=== PATIENT | male | born 1945 | race Caucasian/White ===

== ENCOUNTER 2018-10-17 13:29 | Outpatient (CLI) | payer MEDICARE ==
--- NOTE | 2018-10-17 17:51 | HP ---
HISTORY OF PRESENT ILLNESS: Mr. Rafael Kilgore is a very pleasant 73-year-old gentleman, who [facility] for evaluation of a wound of the left groin. The patient was referred to the [facility]ound [facility] by Dr. Philip Tarango. The patient is accompanied by his today. According to records accompanying the patient today, the etiology of the left groin wound is unclear. PAST MEDICAL HISTORY: 1. Diabetes mellitus. 2. Hypertension. 3. Chronic obstructive pulmonary disease. 4. Chronic diastolic heart failure. 5. Benign prostatic hypertrophy. 6. Obstructive sleep apnea. 7. Atrial flutter/atrial fibrillation status post ablation. PAST SURGICAL HISTORY: 1. Back surgery x2. 2. Rhinoplasty x2. 3. Excision of basal cell carcinoma from the back. 4. Tonsillectomy and adenoidectomy. 5. Appendectomy. 6. Excision of ganglion cyst from right hand. MEDICATIONS: 1. Coreg. 2. Digoxin. 3. Eliquis. 4. Atorvastatin. 5. Metformin. 6. Glipizide. 7. Diltiazem. 8. Lisinopril. 9. Aspirin. 10. Methocarbamol. 11. Gabapentin. 12. MiraLAX. 13. Vitamin D. 14. Vitamin B. 15. Vitamin E. ALLERGIES: SULFA, LATEX. SOCIAL HISTORY: Significant for tobacco use of 1 to 1-1/2 packs of cigarettes per day for 30 years. The patient states that he stopped smoking in 2000. The patient admits to the consumption of 1 drink per day for the past 50 years. FAMILY HISTORY: Family history is significant for diabetes mellitus. The patient states that his maternal uncle was diagnosed with diabetes mellitus. Family history is also significant for coronary artery disease. The patient states that his mother was diagnosed with coronary artery disease. PHYSICAL EXAMINATION: VITAL SIGNS: Temperature 98.2, pulse 91, respirations 20, blood pressure 134/74, Accu-Chek 292. GENERAL: A 73-year-old gentleman, lying on table in examination room, in no acute distress. HEENT: Normocephalic and atraumatic. NECK: No nuchal rigidity. CHEST: Clear to auscultation. CV: Regular rate and rhythm. ABDOMEN: Soft. EXTREMITIES: The wound of the left groin has healed completely. NEURO: Grossly nonfocal. ASSESSMENT AND PLAN: 1. Left groin wound. As stated above, the wound has healed completely. The patient has been reassured that no open wound of the left groin is present. The patient has been instructed to keep this region clean and dry. The patient has also been given samples of InterDry. Mr. Kilgore will be discharged from clinic today with followup on a p.r.n. basis. The patient and his understand and are in agreement with the preceding treatment plan. 2. Diabetes mellitus. The patient's Accu-Chek in clinic today is 292. 3. Hypertension. 4. Chronic obstructive pulmonary disease. 5. Chronic diastolic heart failure. 6. Benign prostatic hypertrophy. 7. Obstructive sleep apnea. 8. Atrial flutter/atrial fibrillation status post ablation. Job ID: [id number]
== END 2018-10-17 13:30 | disposition home or self-care (01) ==
LOC: WCC 13:29
PROVIDERS: ATTEND Family Medicine
DX: I11.0 Hypertensive heart disease with heart failure (principal); I50.32 Chronic diastolic (congestive) heart failure; E11.9 Type 2 diabetes mellitus without complications; J44.9 Chronic obstructive pulmonary disease, unspecified; G47.33 Obstructive sleep apnea (adult) (pediatric); N40.0 Benign prostatic hyperplasia without lower urinary tract symptoms
CPT/HCPCS: 36416; 99203; G0463

== ENCOUNTER 2020-03-14 20:40 | Inpatient (IN) | payer MEDICARE, OTHER ==
[~2020-03-14 20:40] MED LIST: Iopamidol-370 76% 500 ML 1 ML ONE
[2020-03-14] MEDS ORDERED: Nitroglycerin 50 MG/250 ML BOT 250 ML ONE (20:50)
--- NOTE | 2020-03-14 21:01 | RAD ---
Exam: Chest one view HISTORY:Intubated patient and seen. Dyspnea x3 days. Comparison: 03/31/2016 FINDINGS: Cardiac silhouette:Cardiomegaly. Aorta: Unremarkable Pulmonary vessels: Normal Costophrenic angles: Clear LUNGS: Multifocal interstitial opacities with more focal alveolar infiltrate in the right lower lobe and right upper lobe. Pneumothorax: None Osseous abnormalities: None Lines and tubes: Endotracheal tube just down the level of clavicles. IMPRESSION: 1. Endotracheal tube just beyond the level of clavicles 2. Multifocal interstitial and alveolar opacities. Correlate for congestive heart failure versus COVI D pneumonia.
[2020-03-14] MEDS ORDERED: Dexamethasone 10 MG/ML VIAL ONE (21:07)
[2020-03-14] MEDS ORDERED: Azithromycin 500 MG VIAL ONE (21:07)
[2020-03-14] MEDS ORDERED: cefTRIAXone\\ROCEPHIN 1 GM VIAL ONE (21:07)
--- NOTE | 2020-03-14 21:33 | RAD ---
Exam: Chest one view HISTORY:Interval placement of central line. Comparison: 03/14/2020 8:47 PM FINDINGS: Lines and tubes: Interval placement of a nasogastric tube extending beyond the diaphragm. Distal tip is not seen. Interval placement of a left-sided vascular catheter with tip terminating over the expected region of the superior vena cava. Cardiac silhouette:Cardiomegaly Aorta: Unremarkable Pulmonary vessels: Normal Costophrenic angles: Clear LUNGS: Stable multifocal interstitial and alveolar opacities. Pneumothorax: None Osseous abnormalities: None IMPRESSION: 1. Interval placement of a nasogastric tube and left-sided vascular catheter. No pneumothorax. 2. Otherwise, no significant interval change.
[2020-03-14 21:38] LABS: Analyzer IN Cardio ER; Base Excess (BEa) -1.1 mEq/L (-2.0 to +3.0); Calcium, Ionized (arterial) 1.16 mmol/L (1.12-1.30); Hemoglobin (Hb) 14.6 g/dL (14.0-18.0); O2 Tension (PaO2), arterial 74.7 mmHg (> 70.0); Potassium - ABG Lab 5.17 mmol/L (3.70-5.30)
[2020-03-14 21:38] LABS: #Eosinphils 0.2 thou/uL (0.0-0.7); #Lymphocytes 0.6 thou/uL (1.20-3.40); #Monocytes 0.9 thou/uL (0.11-0.59); #Neutrophils 15.6 thou/uL (1.40-6.50); %Eosinophils 0.9 % (0.0-10.0); %Lymphocytes 3.4 % (21.0-51.0); %Monocytes 4.9 % (0.0-10.0); %Neutrophils 90.8 % (42.0-75.0); Hemoglobin 13.7 g/dL (14.0-18.0); Mean Corpuscular HGB CONC 30.4 g/dL (32.0-36.0); Mean Platelet Volume 7.5 fL (7.4-10.4); Platelet Count 261 thou/uL (130-400); RBC Distribution Width 14.7 % (11.5-14.5); Red Blood Cell (RBC) Count 4.89 mill/uL (4.70-6.10); White Blood Cell (WBC) Count 17.2 thou/uL (4.8-10.8)
[2020-03-14 21:41] LABS: CO2 Tension 67.4 mmHg (35.0-45.0); Puncture Site LBA; pH, Arterial 7.24 (7.35-7.45)
[2020-03-14 21:42] LABS: INR-International Normal Ratio 1.1; PTT 27.3 sec (22.9-36.1); Prothrombin Time 14.9 sec (12.0-14.7)
[2020-03-14 21:58] LABS: ALT (SGPT) 42 U/L (8-55); AST (SGOT) 49 U/L (5-34); Albumin 3.8 g/dL (3.4-4.8); Alkaline Phosphatase 146 U/L (40-110); Anion Gap 14 mmol/L (10-20); BUN (Urea Nitrogen) 21 mg/dL (8.4-25.7); Bilirubin, Total 1.1 mg/dL (0.2-1.2); Calc. Creatinine Clearance 0 mL/min (70-130); Calcium 8.8 mg/dL (7.8-10.44); Carbon Dioxide 26 mmol/L (23-31); Chloride 103 mmol/L (98-107); Globulin 3.3 g/dL (2.4-3.5); Glucose 341 mg/dL (83-110); Potassium 5.4 mmol/L (3.5-5.1); Protein, Total 7.1 g/dL (5.8-8.1); Sodium 138 mmol/L (136-145)
[2020-03-14 22:15] LABS: SARS-CoV-2 NAA Rapid Test Not Detected (NotDetected)
[2020-03-14 22:19] LABS: CKMB 1.9 ng/mL (0-6.6)
--- NOTE | 2020-03-14 22:21 | PDOC.FPRHP ---
- History of Present Illness Chief Complaint: SOB History of Present Illness: Pt is a 74yo male w/ hx of COPD, DM, HTN, a fib, MANDA who presents to ED after being intubated in field due to hypoxic respiratory failure. The rest of the history was obtained from his . For the past 4 days pt has become increasingly SOB. He was refusing to seek medical attention. Today he was having difficulty breathing to the point he was unable to talk in sentences, he was confused, not recognizing his and he was not able to get off the toilet. At this point his called EMS. Per EMS when they arrived he was cyanotic and end tidal CO2 was over 100. Pt was then paralyzed, sedated and intubated. They also heard decreased breath sounds on the right and performed needle thoracostomy bilaterally. His is unsure if he had been taking his medications as prescribed. He is a former smoker. He wears his cpap every night. Does not have home O2 requirement. Admits to congestion but denies fever, sick contacts, N/V/D. ED Course: fentanyl, azithromycin, rocephin, decadron, nitro gtt, 30ml/kg bolus IVF - Allergies/Adverse Reactions Allergies Allergy/AdvReac Type Severity Reaction Status Date / Time No Allergy Information Allergy Verified 03/15/20 03:34 Available - Home Medications Medication Instructions Recorded Confirmed Type Budesonide-Formoterol [Symbicort 1 puff INH BID 03/22/16 03/15/20 History 80-4.5] metFORMIN [Glucophage] 500 mg PO BID-WM 03/22/16 03/22/16 History Finasteride [Proscar] 5 mg PO DAILY 03/23/16 03/15/20 History Apixaban [Eliquis] 5 mg PO BID #60 tab 04/02/16 03/15/20 Rx Carvedilol [Coreg] 12.5 mg PO BID- #60 tab 04/02/16 03/15/20 Rx Digoxin [Lanoxin] 0.25 mg PO QAM #30 tab 04/02/16 03/15/20 Rx Diltiazem HCl [Cardizem CD] 240 mg PO DAILY #30 cap 04/02/16 03/15/20 Rx Docusate [Colace] 100 mg PO BID #60 cap 04/02/16 03/15/20 Rx Furosemide [Lasix] 40 mg PO 0900,1400 #60 tab 04/02/16 03/15/20 Rx Insulin Detemir 100 UNITS/ML 15 units SC BID #60 vial 04/02/16 03/15/20 Rx [Levemir] Ipratropium/Albuterol Sulfate 3 ml NEB [id number] #30 neb 04/02/16 03/15/20 Rx [DuoNeb] Pantoprazole [Protonix] 40 mg PO DAILY #30 tab 04/02/16 Rx Polyethylene Glycol 3350 [Miralax] 17 gm PO DAILY #30 pk 04/02/16 03/15/20 Rx Tamsulosin HCl [Flomax] 0.4 mg PO DAILY #30 cap 04/02/16 03/15/20 Rx predniSONE 20 mg PO QAM-WM #4 tab 04/02/16 Rx - History PMHx: DM, HTN, COPD, CHF, BPH, MANDA, a fib PSHx: back surgery, rhinoplasty, tonsillectomy, appendectomy, foot x2 FHx: non-contributory Social: former smoker, drinks alcohol rarely, lives with . - Review of Systems ROS unobtainable: due to endotracheal tube - Vital signs BP: 123/67, HR 75, RR 24, Vent: SIMV, VC, FiO2 100%, PEEP 5 - Physical Exam -Constitutional: Sedated, Intubated HEENT: normocephalic and atraumatic, grossly normal vision, grossly normal hearing Neck: trachea midline -Heart: distant heart sounds, b/l LE edema Lungs: no wheezing -Lungs: difficult to auscultate due to body habitus and being on vent but able to hear breath sounds b/l Abdomen: soft Musculoskeletal: normal structure, normal tone -Neurological: GCS 11T, able to move all 4 limbs, answered some yes/no questions Skin: no rash/lesions, no jaundice Heme/Lymphatic: no unusual bruising or bleeding FMR H&P: Results - Labs Result Diagrams: 03/15/20 03:49 03/15/20 03:49 Lab results: WBC 17.2 thou/uL (4.8-10.8) H 03/14/20 21:19 Hgb 13.7 g/dL (14.0-18.0) L 01/07/21 21:19 Hct 45.0 % (42.0-52.0) 03/14/20 21:19 MCV 92.0 fL (78.0-98.0) 03/14/20 21:19 Plt Count 261 thou/uL (130-400) 03/14/20 21:19 Neutrophils % 90.8 % (42.0-75.0) H 03/14/20 21:19 ABG pH 7.24 (7.35-7.45) L* 03/14/20 21:33 ABG pCO2 67.4 mmHg (35.0-45.0) H* 03/14/20 21:33 ABG pO2 74.7 mmHg (> 70.0) H 03/14/20 21:33 Sodium 138 mmol/L (136-145) 03/14/20 21:19 Potassium 5.4 mmol/L (3.5-5.1) H 03/14/20 21:19 Chloride 103 mmol/L (98-107) 03/14/20 21:19 Carbon Dioxide 26 mmol/L (23-31) 03/14/20 21:19 BUN 21 mg/dL (8.4-25.7) 03/14/20 21:19 Creatinine 1.03 mg/dL (0.7-1.3) 03/14/20 21:19 Glucose 341 mg/dL (83-110) H 03/14/20 21:19 Lactic Acid 1.5 mmol/L (0.5-2.2) 03/14/20 21:19 Calcium 8.8 mg/dL (7.8-10.44) 03/14/20 21:19 Total Bilirubin 1.1 mg/dL (0.2-1.2) 03/14/20 21:19 AST 49 U/L (5-34) H 03/14/20 21:19 ALT 42 U/L (8-55) 03/14/20 21:19 Alkaline Phosphatase 146 U/L (40-110) H 03/14/20 21:19 CK-MB (CK-2) 1.9 ng/mL (0-6.6) 03/14/20 21:19 B-Natriuretic Peptide 94.9 pg/mL (0-100) 03/14/20 21:19 Serum Total Protein 7.1 g/dL (5.8-8.1) 03/14/20 21:19 Albumin 3.8 g/dL (3.4-4.8) 03/14/20 21:19 FMR H&P: A/P - Plan #Acute hypercapenic respiratory failure requiring mechanical ventilation -EMS reported CO2>100, ABG CO2 67 -intubated in field -etiology likely COPD exac 2/2 PNA -BNP 94, procal 0.85 -current vent settings SIMV, Rate 24, FiO2 100%, PEEP 5 -admit to CCU, consult pulm in am -s/p decadron and duonebs in ED, will continue duonebs #Sepsis 2/2 PNA -WBC 17, HR 92 -CTA: b/l pleural effusion, RUL PNA -s/p 30ml/kg bolus in ED -Abx: azithromycin and rocephin given in ED. Will change to cefepime and vanc to cover for MRSA and pseudomonas based on pt's PMH -COVID, flu negative -pending BCx #Hyperkalemia -K 5.4, no T wave changes -will give one dose IV lasix and recheck in am #Indeterminate troponin -trop 0.052, will trend -Likely due to demand #Afib -Hx of afib s/p ablation -ekg: a fib with normal rate -continue home eliquis #DM2 -continue home meds -pending A1c -mod SSI #BPH -continue home meds #Chronic diastolic heart failure -hx obtained from prior admissions -continue home meds #MANDA -uses CPAP at home -once off vent, consider adding CPAP at night Code: Full, 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 LOS>48hrs FMR H&P: Upper Level - Plan Date/Time: 03/14/202220 I, [Constanza Mane], have evaluated this patient and agree with findings/plan as outlined by process engineering intern resident. Pertinent changes/additions are listed here. 74 yo M with hx of MANDA on CPAP, COPD, diastolic HF brought in by EMS after being intubated for respiratory distress. Per patient patient has history of diastolic HF, COPD. He had been feeling more SOB the past few days and today was very confused. EMS was called and he was intubated on the field and had bilateral needle thoracostomies placed after auscultation of decreased right breath sounds. CTA was negative for PE but pertinent for bilateral pleural effusions and infiltrates. Flu & COVID negative. He was given dexamethasone, 500mg azithromycin, 1g rocephin and 30cc/kg bolus. He was originally very hypertensive on arrival and so was started on an nitro drip. Pressures normalized and is currently off of it. Records show he was here in 2017 in which he was intubated for AHRF 2/2 CHF exacerbation and AFib with RVR. PE: GCS 11T ([id number]) Resp: Bilateral breath sounds Abd: Mild distension, no fluid wave, non tender Extrem: 1+ edema in BLE with compression stockings CTA: Neg for PE, b/l effusions & infiltrates. RUL consolidation. #Acute hypercapenic respiratory failure requiring mechanical ventilation -Multifactorial, suspect 2/2 MANDA/OHS, PNA, COPD exacerbation? -Flu & COVID neg, will obtain legionella & s pneumo urinary antigen. Rocephin & azithromycin given in ER. -On SIMV: f24, FiO 100%, PEEP 5.0 -BNP 94, Procal 0.85, CO2 on ABG 67.4 -Will give one time dose of IV lasix, to also help with hyperK. BRIAN vuongbs. Reassess in AM. -Ventilation sedation protocol -Consult pulm in AM, recs appreciated #Respiratory acidosis -pH 7.24, CO2 67.4, now on mechanical ventilation with rate frequency of 24 -COPD/MANDA component? -RT on board -Can repeat ABG in AM #Sepsis 2/2 bilateral PNA -CT with bilateral pleural effusion/consolidations -WBC 17, tachycardic -Covid & flu negative, Procal 0.85 -s/p 30cc/kg bolus -s/p rocephin & azithromycin- broaden to vanc & cefepime for MRSA & pseudomonal coverage -Bcx collected #Hyperkalemia -5.4, no T wave changes -One time dose IV lasix, recheck with AM labs #Indeterminate troponin -0.052, no EKG changes -Likely stress ischemia- trend, cardiac monitoring #Afib,rate controlled -Hx of afib, afib on EKG, rate controlled =s/p th lovenox, after talking with who confirmed madeline will restart -restart home meds #IDDM2 -Check A1c -Sliding scale #COPD -See above #Hx of BPH -MD aware #Hx of aflutter/afib s/p ablation -See above #Chronic diastolic heart failure -MD aware Admit: ICU/Inpt Lines: Left IJ, two peripheral 18G, OGT, ETT dvt ppx: th lovenox gi ppx: pepcid abx: vanc & cefepime Addendum - Attending - Attending Attestation Date/Time: 03/15/20 0701 I personally evaluated the patient and discussed the management with Dr. Claros I agree with the History, Examination, Assessment and Plan documented above with any addition or exceptions noted below - 74yo male w/ hx of COPD, DM, HTN, a fib, MANDA who presents to ED after being intubated in field due to severe resp distress The rest of the history was obtained from his . For the past 4 days pt has become increasingly SOB. He was refusing to seek medical attention. Today he was having difficulty breathing to the point he was unable to talk in sentences, he was confused, not recognizing his and he was not able to get off the toilet. At this point his called EMS. His is unsure if he had been taking his medications as prescribed. He is a former smoker. He wears his cpap every night. Does not have home O2 requirement. Admits to congestion but denies fever, sick contacts, N/V/D. Per EMS when they arrived he was cyanotic and end tidal CO2 was over 100. Pt was then paralyzed, sedated and intubated. They also heard decreased breath sounds on the right and performed needle thoracostomy bilaterally. BP 96/55 P74 RR24 99% Exam repeated by me and agree with resident's findings. Labs: WBC= 17.2, H/H=13.7/45, Uki=441, Xq=440, K=5.4, BUN/Cr=21/1.03, Notg=488, AST/ALT=49/42, BNP=94.9, Trop=0.052, Flu/COVID- ne gative, CTA- no PE; RUL pneumonia, b/l pleural effusions with adjacent atelectasis versus pneumonia A/P: 1) Acute hypoxic, hypercapneic resp failure- Admit to ICU; Continue vent support. Consult pulmonary. 2) CAP - continue abx, nebs, vent support. 3) DM- accuchecks q6 horus with SSI, 4) Afib- rate controlled; continue to monitor.
--- NOTE | 2020-03-14 23:03 | CT ---
Exam: CT angiogram of the chest HISTORY: Altered mentation. Hypercapnia. Cyanosis. Hypoxia. Evaluate for pulmonary embolism. COMPARISON: None TECHNIQUE: CT angiogram of the chest is performed in the axial plane. Three-dimensional reformatted i mages are submitted for interpretation FINDINGS: Mediastinum: Enlarged right paratracheal lymph node measuring 2.2 x 1.4 cm. Upper normal prevascular lymph node measuring 1.3 x 0.7 cm. HEART: Normal size. No significant pericardial fluid. There is coronary disease. Aorta: No aneurysm or dissection Upper solid abdominal viscera: No abnormality enhancement. Trachea and central bronchi: Endotracheal tube is identified. Pleural spaces: Small to moderate right and small left pleural effusion. Lung parenchyma: Right upper lobe consolidation likely due to pneumonia. Consolidation in both lower lobes adjacent to the pleural fluid. 1 cm groundglass opacity in the left upper lobe. Pneumothorax: None Osseous structures: No lytic or blastic lesions Pulmonary arteries: Adequate contrast opacification pulmonary arterial system to the level of segment al arteries. No filling defect to suggest pulmonary embolism IMPRESSION: 1. No evidence of pulmonary artery embolism to the level of the segmental arteries 2. Right upper lobe pneumonia. 3. Bilateral pleural effusion with adjacent consolidation likely representing atelectasis. Pneumonia and/or aspiration in the lung bases cannot be excluded.
[2020-03-14] MEDS ORDERED: Dextrose 5% in Water 1,000 ML IV PRN (23:42)
[2020-03-14] MEDS ORDERED: Ondansetron PF 4 MG/2 ML Vial IVP PRN (23:42)
[2020-03-14] MEDS ORDERED: Dextrose 50% Abboject 50 ML SYRINGE SLOW IVP PRN (23:42)
[2020-03-14] MEDS ORDERED: Ondansetron ODT 4 MG TAB PO PRN (23:42)
[2020-03-15] MEDS ORDERED: Ventilator Sedation Protocol 1 EACH FS SCH (00:15)
[2020-03-15] MEDS ORDERED: DISCONTINUE PREVIOUS NARCOTIC PAIN MEDICATIONS AND BENZODIAZEPINES FS SCH (00:15)
[2020-03-15] MEDS ORDERED: Fentanyl BOLUS 250 ML IVPB PRN (00:15)
[2020-03-15] MEDS ORDERED: Morphine 2 MG/ML VIAL SLOW IVP PRN (00:15)
[2020-03-15] MEDS ORDERED: Furosemide 40 MG/4 ML VIAL SLOW IVP SCH (01:00)
[2020-03-15] MEDS ORDERED: Vancomycin 1 GM in Premix Bag 1 BAG IVPB SCH ×2 (01:00→09:00)
[2020-03-15] MEDS ORDERED: Propofol 1,000 MG/100 ML VIAL IV ONE ×3 (01:11→12:59)
[2020-03-15] MEDS: Propofol BOLUS 1,000 MG/100 ML VIAL IV PRN ×2 (01:20→03:00)
[2020-03-15] MEDS: fentaNYL Citrate/PF 2,000 MCG in Sodium Chloride 0.9% 60 ML IV SCH (01:20)
[2020-03-15] MEDS: Propofol 1,000 MG/100 ML VIAL IV PRN ×2 (01:20→20:20)
[2020-03-15 01:35] LABS: CKMB 1.5 ng/mL (0-6.6)
[2020-03-15] MEDS ORDERED: Furosemide 40 MG/4 ML VIAL ONE ×2 (01:37→09:48)
[2020-03-15] MEDS ORDERED: Enoxaparin Sodium 80 MG/0.8 ML SYRINGE SC SCH (02:00)
[2020-03-15 02:03] LABS: Bacteria/HPF None Seen HPF (None Seen); Bilirubin Negative (Negative); Blood, Urine Negative (Negative); Clarity Clear (Clear); Glucose, Urine (Dipstick) >=1000 mg/dL (Negative); Ketone, Urine Negative (Negative); Leukocyte Negative Leu/uL (Negative); Nitrite Negative (Negative); Protein, Urine (Dipstick) 300 mg/dL (Neg-Trace); Specific Gravity, Urine 1.048 (1.002-1.036); Urobilinogen Normal mg/dL (Less than 2); pH, Urine 6.5 (5.0-9.0)
[2020-03-15 02:09] LABS: RBC/HPF 0-3 HPF (0-3)
[2020-03-15 02:15] LABS: Legionella Urinary Ag Negative (Negative); Strep pneumo Urine Ag NEGATIVE (NEGATIVE)
[2020-03-15] MEDS ORDERED: Enoxaparin Sodium 60 MG/0.6 ML SYRINGE ONE (02:42)
[2020-03-15] MEDS ORDERED: Enoxaparin Sodium 100 MG/ML SYRINGE ONE (02:42)
[2020-03-15] MEDS ORDERED: INSULIN REGULAR IN 0.9 % NACL 100 UNIT/100 ML BAG ONE (02:42)
[2020-03-15] MEDS ORDERED: Enoxaparin Sodium 80 MG/0.8 ML SYRINGE ONE (02:43)
[2020-03-15] MEDS: HumaLOG 300 UNITS/3 ML VIAL SC PRN ×4 (02:51→16:19)
[2020-03-15 04:18] LABS: #Lymphocytes 0.5 thou/uL (1.20-3.40); #Monocytes 0.2 thou/uL (0.11-0.59); #Neutrophils 9.1 thou/uL (1.40-6.50); %Eosinophils 0.3 % (0.0-10.0); %Lymphocytes 5.2 % (21.0-51.0); %Monocytes 2.2 % (0.0-10.0); %Neutrophils 92.3 % (42.0-75.0); Hemoglobin 12.2 g/dL (14.0-18.0); Mean Corpuscular HGB CONC 31.7 g/dL (32.0-36.0); Mean Corpuscular Hemoglobin 28.7 pg (27.0-31.0); Mean Corpuscular Volume 90.3 fL (78.0-98.0); Mean Platelet Volume 7.7 fL (7.4-10.4); Platelet Count 216 thou/uL (130-400); RBC Distribution Width 14.8 % (11.5-14.5); Red Blood Cell (RBC) Count 4.26 mill/uL (4.70-6.10); White Blood Cell (WBC) Count 9.9 thou/uL (4.8-10.8)
[2020-03-15 04:48] LABS: ALT (SGPT) 33 U/L (8-55); AST (SGOT) 24 U/L (5-34); Albumin 3.5 g/dL (3.4-4.8); Alkaline Phosphatase 118 U/L (40-110); Anion Gap 12 mmol/L (10-20); BUN (Urea Nitrogen) 23 mg/dL (8.4-25.7); Bilirubin, Total 0.9 mg/dL (0.2-1.2); Calc. Creatinine Clearance 139 mL/min (70-130); Calcium 8.4 mg/dL (7.8-10.44); Carbon Dioxide 27 mmol/L (23-31); Chloride 105 mmol/L (98-107); Globulin 2.8 g/dL (2.4-3.5); Glucose 338 mg/dL (83-110); Potassium 4.5 mmol/L (3.5-5.1); Protein, Total 6.3 g/dL (5.8-8.1); Sodium 139 mmol/L (136-145)
[2020-03-15 05:01] LABS: CKMB 1.5 ng/mL (0-6.6)
--- NOTE | 2020-03-15 06:19 | PDOC.FM ---
- Subjective Subjective: Intubated and lightly sedated. Is capable of following commands per nurse. In on distress. has been updated. He had a similar experience in 2017. - Objective Vital Signs & Weight: Vital Signs (12 hours) Temp Pulse Resp BP Pulse Ox 03/15/20 03:15 98.2 F 57 L 24 H 116/55 L 100 03/15/20 03:01 58 L 03/15/20 02:57 70 24 H 100 03/15/20 01:31 98.6 F 65 24 H 110/68 98 03/14/20 23:43 100 Weight Weight 148 kg Result Diagrams: 03/15/20 03:49 03/15/20 03:49 Phys Exam - Physical Examination Constitutional: NAD HEENT: sclera anicteric Neck: no JVD, full ROM Respiratory: no wheezing, no rales, no rhonchi Cardiovascular: RRR, no significant murmur Gastrointestinal: soft, positive bowel sounds Musculoskeletal: no edema, pulses present Skin: no rash, normal turgor Dx/Plan - Plan Plan: #Acute hypercapenic respiratory failure requiring mechanical ventilation 2/2 COPD exacerbation, CAP - remain intubated and sedated #COPD - initiate methylprednisilone - cefepime, vanc - inhalers scheduled #CAP Sepsis - resolved -CTA: b/l pleural effusion, RUL PNA -cont cefepime, vanc -COVID, flu negative -pending BCx #Hyperkalemia - resolved -K 5.4, no T wave changes -will give one dose IV lasix and recheck in am #Indeterminate troponin -trop 0.052, will trend -Likely due to demand #Afib -Hx of afib s/p ablation -ekg: a fib with normal rate -continue home eliquis #DM2 -continue home meds -pending A1c -mod SSI #BPH -continue home meds #Chronic diastolic heart failure -hx obtained from prior admissions -continue home meds #MANDA -uses CPAP at home -once off vent, consider adding CPAP at night Code: Full, per PCP: UNDER TRIMMER IVF: SL DVT Ppx: eliquis Lines: Left IJ Dispo: Admit to CCU, intubated, continue to monitor resp status. LOS>48hrs Addendum - Attending - Attending Attestation Date/Time: 03/15/20 1048 I personally evaluated the patient and discussed the management with Dr. Villalba. I agree with the History, Examination, Assessment and Plan documented above with any addition or exceptions noted below. Patient here with acute hypoxic hypercapnic resp failure 2/2 suspected pneumonia. Continue antibiotics, intubation status. Pulm has been consulted. WBC normal but with neutrophilia. Wean vent as tolerated.
[2020-03-15] MEDS ORDERED: Non-Formulary Item 1 EACH (Insulin Detemir 100 Units/Ml [Levemir] 100 UNITS/ML Vial) SC SCH (09:00)
[2020-03-15] MEDS ORDERED: Enoxaparin Sodium 40 MG/0.4 ML SYRINGE SC SCH ×2 (09:00)
[2020-03-15] MEDS ORDERED: Lactated Ringer's 1,000 ML IV SCH (09:30)
[2020-03-15] MEDS ORDERED: Digoxin 0.25 MG TAB ONE (09:48)
[2020-03-15] MEDS ORDERED: Famotidine/PF 20 mg/2ml Vial ONE (09:48)
[2020-03-15] MEDS: Cefepime 2 GM in Sodium Chloride 0.9% 100 ML IVPB SCH ×2 (09:50→21:12)
[2020-03-15] MEDS: Digoxin 0.25 MG TAB PO SCH (09:50)
[2020-03-15] MEDS: Carvedilol 6.25 MG TAB PO SCH ×2 (09:50→16:20)
[2020-03-15] MEDS: Famotidine/PF 20 mg/2ml Vial SLOW IVP SCH ×2 (09:51→21:13)
[2020-03-15] MEDS: Finasteride 5 MG TAB PO SCH (09:52)
[2020-03-15] MEDS: Furosemide 40 MG TAB PO SCH ×2 (09:52→14:39)
[2020-03-15] MEDS: Insulin Glargine 15 UNITS in Pre-Filled Syringe 1 EACH SC SCH ×2 (09:52→21:14)
[2020-03-15] MEDS: Polyethylene Glycol 3350 17 GM Packet PO SCH (12:28)
[2020-03-15] MEDS: Docusate 100 MG CAP PO SCH ×2 (12:28→21:14)
[2020-03-15] MEDS ORDERED: Lorazepam 2 MG/ML VIAL ONE (12:29)
[2020-03-15] MEDS: Lorazepam 2 MG/ML VIAL SLOW IVP PRN (12:30)
[2020-03-15] MEDS ORDERED: FLU VACC QS2020-21(65YR UP)/PF 240 MCG/0.7 ML SYRINGE IM ONE (13:15)
[2020-03-15] MEDS ORDERED: Vancomycin HCl 1.75 GM in Sodium Chloride 0.9% 500 ML IVPB SCH (14:00)
[2020-03-15] MEDS: Mometasone 100 MCG/Formoterol 5 MCG 120 PUFF INHALER INH SCH ×2 (14:32→18:18)
--- NOTE | 2020-03-15 17:55 | CON ---
DATE OF CONSULTATION: 03/15/2020 HISTORY OF PRESENT ILLNESS: Rafael Kilgore is a 74-year-old male who is intubated in the emergency department. Apparently, he has a history of multiple medical problems. He was intubated outside of the hospital. There is no family available. PAST MEDICAL HISTORY: Remarkable for: 1. Sleep apnea. 2. Atrial fibrillation. 3. Hypertension. 4. Diabetes. 5. Reported history of COPD. He is in the hospital. It looks like reviewing old records back in 2017, seen by my associate during that hospitalization, it looks like he was hospitalized from 03/22 through 04/03. He was discharged home. He says he had an episode of diastolic dysfunction as well as respiratory failure associated with his sleep apnea. 6. He has a history of lipid disorder. 7. He has discharge diagnosis of malnutrition, I am not really sure how he could be malnourished when he weighed almost 400 pounds in 2017. FAMILY HISTORY: Negative for lung disease in early age. REVIEW OF SYSTEMS: Not obtainable. PHYSICAL EXAMINATION: VITAL SIGNS: Blood pressure 133/62, heart rate is in the 50s, respiratory rate is 20. GENERAL: He is sedated. He is quite large. HEENT: Pupils reactive. Sclerae are anicteric. He is orally intubated. NECK: Without lymphadenopathy. LUNGS: Distant and clear. HEART: Regular rhythm. S1 and S2 are distant. ABDOMEN: Massive. No guarding. EXTREMITIES: With chronic stasis changes. One of his lower extremities has a compression wrap on it. LABORATORY DATA: White count 9.9, hemoglobin 12.2, and platelets 216. Electrolytes are unremarkable. Creatinine is normal. Glucose is in the 300s. Urinalysis is remarkable for 300 mg/dL of protein. IMPRESSION: 1. Respiratory failure with a chest radiograph is suggestive of pulmonary edema. 2. History of obesity hypoventilation syndrome/sleep apnea. 3. History of diastolic heart failure. 4. Life-threatening obesity. 5. Borderline anemia. 6. Proteinuria, likely associated with his diabetes. 7. Status post CT angiogram showing bilateral patchy alveolar infiltrates. He had nothing suggestive of a pulmonary embolism on his CT. PLAN: Mechanical ventilation. Antibiotics, sedation, nutritional support, although will be careful not overfeeding for fear of CO2 production issues and difficulty weaning. He may actually require tracheostomy to wean given his size. CRITICAL CARE TIME: 40 minutes. Job ID: [id number] MTD[place]
[2020-03-16] MEDS: Apixaban 5 MG TAB PO SCH ×3 (00:47→20:55)
[2020-03-16] MEDS: Propofol 1,000 MG/100 ML VIAL IV PRN ×7 (00:50→22:38)
[2020-03-16] MEDS: fentaNYL Citrate/PF 2,000 MCG in Sodium Chloride 0.9% 60 ML IV SCH ×2 (01:04→20:54)
--- NOTE | 2020-03-16 05:50 | PDOC.FM ---
- Subjective Subjective: Mr. Kilgore is intubated, mildly sedated. He well move his arms and legs when disturbed or agitated. Did not follow commands this morning. - Objective Vital Signs & Weight: Vital Signs (12 hours) Temp Pulse Resp BP Pulse Ox 03/16/20 04:00 20 03/16/20 03:57 98.4 F 03/16/20 02:13 69 20 92 L 03/16/20 02:11 69 134/59 L 03/16/20 02:00 20 03/16/20 00:00 98.1 F 20 03/15/20 23:34 97.4 F L 03/15/20 22:17 61 135/64 03/15/20 22:15 61 20 93 L 03/15/20 22:00 20 03/15/20 20:00 20 90 L 03/15/20 19:00 97.1 F L 03/15/20 18:19 66 122/65 03/15/20 18:16 54 L 20 92 L 03/15/20 18:00 20 Weight Admit Weight 147.998 kg Weight 147.998 kg Most Recent Monitor Data Heart Rate from ECG 63 NIBP 127/61 NIBP BP-Mean 83 Respiration from ECG 15 SpO2 93 I&O: 03/14/20 03/15/20 03/16/20 06:59 06:59 06:59 Intake Total 841 Output Total 1825 Balance -984 Result Diagrams: 03/17/20 03:20 03/17/20 03:20 Phys Exam - Physical Examination Respiratory: clear to auscultation bilateral (anteriorly, vent souns) Cardiovascular: RRR, no significant murmur Gastrointestinal: soft, no distention Musculoskeletal: no edema Neurological: moves all 4 limbs Skin: cap refill <2 seconds Dx/Plan - Plan Plan: #Acute hypercapenic respiratory failure requiring mechanical ventilation 2/2 pneumonia 2/2 COPD exacerbation, CAP - remain intubated and sedated - tube feeds started, tolerating - continue cefepime 03/15, trending procal, 0.8->1.2. Will recheck procal and WBC in am. No fevers or worsening clinical status. - repeat CXR pending #COPD - inhalers scheduled #DM2 - BG uncontrolled, continue to work on improved glycemic control. Mod SSI, received 24u in past 24h. Increase levemir 15->22u. 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 Crenshaw I agree with the History, Examination, Assessment and Plan documented above with any addition or exceptions noted below.
[2020-03-16] MEDS: Mometasone 100 MCG/Formoterol 5 MCG 120 PUFF INHALER INH SCH ×2 (07:14→18:33)
[2020-03-16] MEDS: Cefepime 2 GM in Sodium Chloride 0.9% 100 ML IVPB SCH ×2 (09:06→20:56)
[2020-03-16] MEDS: Famotidine/PF 20 mg/2ml Vial SLOW IVP SCH ×2 (09:06→20:56)
[2020-03-16] MEDS: Docusate 100 MG CAP PO SCH (09:08)
[2020-03-16] MEDS: Digoxin 0.25 MG TAB PO SCH (09:08)
[2020-03-16] MEDS: Furosemide 40 MG TAB PO SCH ×2 (09:08→14:44)
[2020-03-16] MEDS: Carvedilol 6.25 MG TAB PO SCH ×2 (09:09→16:12)
[2020-03-16] MEDS: Finasteride 5 MG TAB PO SCH (09:09)
[2020-03-16] MEDS: Polyethylene Glycol 3350 17 GM Packet PO SCH (09:09)
[2020-03-16] MEDS: Insulin Glargine 15 UNITS in Pre-Filled Syringe 1 EACH SC SCH (10:45)
[2020-03-16] MEDS: HumaLOG 300 UNITS/3 ML VIAL SC PRN ×3 (10:49→20:58)
[2020-03-16] MEDS: Lorazepam 2 MG/ML VIAL SLOW IVP PRN (15:49)
--- NOTE | 2020-03-16 16:54 | RAD ---
PORTABLE CHEST: 03/16/20 HISTORY: Respiratory distress. COMPARISON: 03/14/20 exam. Heart size is enlarged. Endotracheal tube is in satisfactory position. Distal end of the NG tube is n ot visualized on this exam. There is increased opacification in both lung bases suggesting increasing effusions. IMPRESSION: Increasing opacification of both lung bases, particularly on the right suggesting increased effusions . POS: ROGER
--- NOTE | 2020-03-16 17:51 | PRG ---
DATE OF SERVICE: 03/16/2020 SUBJECTIVE: Mr. Kilgore is doing well, considering his size. He is 5 feet 8 inches, 328 pounds. OBJECTIVE: VITAL SIGNS: He is afebrile. Blood pressure 134/59, respiratory rate is 20. FiO2 is 40. Intake and outputs negative 669. LUNGS: Clear anteriorly with distant breath sounds. HEART: Distant S1 and S2. No murmur. ABDOMEN: Soft, massive. No guarding. EXTREMITIES: With stasis. LABORATORY DATA: White blood count 9.9, hemoglobin 12.2, platelets 216. Electrolytes are unremarkable. Creatinine is 0.9. No blood gas today . Chest x-ray lung bases. BNP 2 days ago was less than 100. IMPRESSION: Respiratory failure secondary to obesity hypoventilation syndrome plus or minus an infectious process such as bacterial bronchitis or pneumonia. We will continue mechanical ventilatory support. Other problems include atrial fibrillation, hypertension, diabetes, and reportedly COPD as well as diastolic dysfunction. We will continue to follow in critical care unit. It is unclear at this point in time whether or not he will wean without a tracheostomy given his size. It is also unclear to me whether he is currently treating his obesity hypoventilation syndrome. Critical care time 30 min. Job ID: [id number] MTDD
[2020-03-16] MEDS: Docusate Sodium 100 MG/10 ML UDCUP PO SCH (20:56)
[2020-03-16] MEDS: Insulin Glargine 22 UNITS in Pre-Filled Syringe 1 EACH SC SCH (20:57)
[2020-03-17] MEDS: Propofol 1,000 MG/100 ML VIAL IV PRN ×6 (03:44→23:33)
[2020-03-17 04:24] LABS: #Eosinphils 0.1 thou/uL (0.0-0.7); #Lymphocytes 0.8 thou/uL (1.20-3.40); #Monocytes 0.7 thou/uL (0.11-0.59); #Neutrophils 8.3 thou/uL (1.40-6.50); %Basophils 0.2 % (0.0-1.0); %Eosinophils 0.7 % (0.0-10.0); %Lymphocytes 8.5 % (21.0-51.0); %Monocytes 6.8 % (0.0-10.0); %Neutrophils 83.9 % (42.0-75.0); Hemoglobin 11.9 g/dL (14.0-18.0); Mean Corpuscular Hemoglobin 28.6 pg (27.0-31.0); Mean Corpuscular Volume 89.2 fL (78.0-98.0); Mean Platelet Volume 7.6 fL (7.4-10.4); Platelet Count 229 thou/uL (130-400); RBC Distribution Width 15.2 % (11.5-14.5); Red Blood Cell (RBC) Count 4.18 mill/uL (4.70-6.10); White Blood Cell (WBC) Count 9.8 thou/uL (4.8-10.8)
[2020-03-17 04:55] LABS: Anion Gap 14 mmol/L (10-20); BUN (Urea Nitrogen) 28 mg/dL (8.4-25.7); Calc. Creatinine Clearance 139 mL/min (70-130); Calcium 8.4 mg/dL (7.8-10.44); Carbon Dioxide 27 mmol/L (23-31); Chloride 102 mmol/L (98-107); Glucose 304 mg/dL (83-110); Sodium 139 mmol/L (136-145)
[2020-03-17] MEDS: HumaLOG 300 UNITS/3 ML VIAL SC PRN ×3 (05:02→16:06)
--- NOTE | 2020-03-17 05:27 | PDOC.FM ---
- Subjective Subjective: 74 yo M remains ventilated, sedated. No acute changes overnight. - Objective Vital Signs & Weight: Vital Signs (12 hours) Temp Pulse Resp BP Pulse Ox 03/17/20 04:00 99 F 20 03/17/20 03:21 99.3 F 03/17/20 02:34 74 20 94 L 03/17/20 02:00 20 03/17/20 01:00 20 03/17/20 00:00 99.3 F 20 03/16/20 22:07 46 L 20 131/69 95 03/16/20 22:00 20 03/16/20 20:00 99.3 F 20 93 L 03/16/20 19:39 97.8 F 03/16/20 18:32 43 L 20 93 L 03/16/20 18:29 44 L 97/39 L 03/16/20 18:00 20 Weight Admit Weight 147.998 kg Weight 149.05 kg Most Recent Monitor Data Heart Rate from ECG 69 NIBP 168/71 NIBP BP-Mean 103 Respiration from ECG 20 SpO2 91 I&O: 03/15/20 03/16/20 03/17/20 06:59 06:59 06:59 Intake Total 1280.9 931 Output Total 1950 2612 Balance -669.1 -1681 Result Diagrams: 03/17/20 03:20 03/17/20 03:20 Phys Exam - Physical Examination Gastrointestinal: soft, non-tender Dx/Plan - Plan Plan: #Acute hypercapenic respiratory failure requiring mechanical ventilation 2/2 pneumonia 2/2 COPD exacerbation, CAP - remain intubated and sedated - tube feeds started, tolerating - continue cefepime 03/15, trending procal, 0.8->1.2->0.6. No fevers or worsening clinical status. - repeat CXR with increasing pleural effusion. IVF now on KVO with tube feeds - good urine output, 2600mL in past 24h #COPD - duonebs scheduled #DM2 - Glycemic control improving. Mod SSI, levemir 22u BID. 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 Crenshaw I agree with the History, Examination, Assessment and Plan documented above with any addition or exceptions noted below. Patient stable sedated Intubation /HD #3 with history of COPD and MANDA may be significant challenge for extubation. Appreciate Pulmonary Critical Care consultation note pleural effusion on CXR.
[2020-03-17] MEDS: Mometasone 100 MCG/Formoterol 5 MCG 120 PUFF INHALER INH SCH ×2 (07:17→19:17)
[2020-03-17] MEDS: Insulin Glargine 22 UNITS in Pre-Filled Syringe 1 EACH SC SCH (09:05)
[2020-03-17] MEDS: Lorazepam 2 MG/ML VIAL SLOW IVP PRN (09:05)
[2020-03-17] MEDS: Cefepime 2 GM in Sodium Chloride 0.9% 100 ML IVPB SCH ×2 (09:07→21:24)
[2020-03-17] MEDS: Famotidine/PF 20 mg/2ml Vial SLOW IVP SCH ×2 (09:07→21:25)
[2020-03-17] MEDS: Polyethylene Glycol 3350 17 GM Packet PO SCH (09:09)
[2020-03-17] MEDS: Carvedilol 6.25 MG TAB PO SCH ×2 (09:09→16:05)
[2020-03-17] MEDS: Digoxin 0.25 MG TAB PO SCH (09:09)
[2020-03-17] MEDS: Apixaban 5 MG TAB PO SCH ×2 (09:09→21:25)
[2020-03-17] MEDS: Finasteride 5 MG TAB PO SCH (09:10)
[2020-03-17] MEDS: Furosemide 40 MG TAB PO SCH ×2 (09:10→13:23)
[2020-03-17] MEDS: Docusate Sodium 100 MG/10 ML UDCUP PO SCH ×2 (10:40→21:33)
[2020-03-17] MEDS ORDERED: Insulin Glargine 30 UNITS in Pre-Filled Syringe 1 EACH SC SCH ×3 (10:50→21:00)
[2020-03-17] MEDS: fentaNYL Citrate/PF 2,000 MCG in Sodium Chloride 0.9% 60 ML IV SCH (17:38)
--- NOTE | 2020-03-17 17:53 | PRG ---
DATE OF SERVICE: 03/17/2020 SUBJECTIVE: Rafael Kilgore remains in the ICU, mechanically ventilated. OBJECTIVE: VITAL SIGNS: Blood pressure 131/69, respiratory rate 16, FiO2 is 50, oximetry is in the mid 90s. LUNGS: Remarkable for diffuse wheezes. HEART: Regular rhythm. ABDOMEN: Soft. LABORATORY DATA: White count 9.8, hemoglobin 11.9, and platelets 229. Electrolytes are normal BUN 28 and creatinine 1. IMPRESSION: 1. Respiratory failure. 2. Obesity hypoventilation syndrome. 3. Probable pneumonia. 4. Clinical bronchospasm. 5. Atrial fibrillation. 6. Hypertension. 7. Diabetes. 8. History of chronic obstructive pulmonary disease. 9. History of diastolic dysfunction. PLAN: Continue current mechanical ventilation. Antimicrobial therapy. His Cardizem probably needs to be changed to short-acting Cardizem since long-acting Cardizem can be put down to 2. We will follow. Critical care time 30 min. Job ID: [id number] MTDD
[2020-03-18] MEDS: Propofol 1,000 MG/100 ML VIAL IV PRN ×6 (03:21→21:52)
[2020-03-18] MEDS: HumaLOG 300 UNITS/3 ML VIAL SC PRN ×4 (03:45→21:10)
--- NOTE | 2020-03-18 06:20 | PDOC.FM ---
- Subjective Subjective: Pt intubated and sedated, lying supine VSS FIO2 70%, RR 16, PEEP 5 - Objective MAR Reviewed: Yes Vital Signs & Weight: Vital Signs (12 hours) Temp Pulse Resp BP Pulse Ox 03/18/20 04:00 15 03/18/20 02:27 77 131/64 03/18/20 02:26 81 16 94 L 03/18/20 02:00 21 H 03/18/20 01:00 19 03/18/20 00:00 97.1 F L 15 03/17/20 22:45 61 112/58 L 03/17/20 22:44 61 16 95 03/17/20 22:00 15 03/17/20 20:00 19 16 L 03/17/20 19:30 97.6 F 03/17/20 19:18 58 L 122/55 L 03/17/20 19:16 59 L 16 96 Weight Admit Weight 147.998 kg Weight 145.4 kg Most Recent Monitor Data Heart Rate from ECG 88 NIBP 131/64 NIBP BP-Mean 86 Respiration from ECG 17 SpO2 96 I&O: 03/16/20 03/17/20 03/18/20 06:59 06:59 06:59 Intake Total 1280.9 1910 1211 Output Total 4237 2645 2130 [facility] -669.1 -735 -919 Result Diagrams: 03/17/20 03:20 03/17/20 03:20 Radiology Reviewed by me: Yes (B pleural effisions ) Phys Exam - Physical Examination intubated and sedated HEENT: moist MMs Neck: supple diminishe dbreath sounds worse bibasilar Cardiovascular: RRR, no significant murmur Gastrointestinal: soft, no distention, positive bowel sounds Musculoskeletal: pulses present, edema present (BLE) sedated on propofol Dx/Plan (1) Obesity hypoventilation syndrome Code(s): E66.2 - MORBID (SEVERE) OBESITY WITH ALVEOLAR HYPOVENTILATION Status: Acute (2) Afib Code(s): I48.91 - UNSPECIFIED ATRIAL FIBRILLATION Status: Acute Qualifiers: Atrial fibrillation type: persistent (3) DMII (diabetes mellitus, type 2) Status: Chronic Qualifiers: Diabetes mellitus halfway insulin use: with halfway use Diabetes mellitus complication status: with unspecified complications (4) HTN (hypertension) Code(s): I10 - ESSENTIAL (PRIMARY) HYPERTENSION Status: Chronic Qualifiers: Hypertension type: essential hypertension Qualified Code(s): I10 - Essential (primary) hypertension (5) Obesity Code(s): E66.9 - OBESITY, UNSPECIFIED Status: Chronic Qualifiers: Obesity type: unspecified obesity type - Plan Plan: #Acute hypercapenic respiratory failure requiring mechanical ventilation 2/2 obesity hypoventilation syndrom Possible inciting event COPD exacerbation vs CAP. Trouble with extubation due to obesity hypoventilation syndrome. Pulm plans for possible tracheostomy. - remaining intubated and sedated, per pulm recs - tube feeds, tolerating - continue cefepime 03/15, trending procal, 0.8->1.2->0.6-> 0.39. No fevers or worsening clinical status. - repeat CXR with increasing pleural effusion. IVF now on KVO with tube feeds - good urine output, 2130mL in past 24h #COPD - duonebs scheduled, dulera inhaler #DM2 - Glycemic control improving. Mod SSI, glargine increased to 32u BID. #Hyperkalemia, resolved #Indeterminate troponin -trop 0.05 -Likely due to demand #Afib -Hx of afib s/p ablation -ekg: a fib with normal rate -continue home eliquis - home cardizem held due to when given dropped HR to 40's. Stable rate without. 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 Rodríguez. I agree with the History, Examination, Assessment and Plan documented above with any addition or exceptions noted below.
[2020-03-18] MEDS: Mometasone 100 MCG/Formoterol 5 MCG 120 PUFF INHALER INH SCH ×2 (07:00→18:09)
--- NOTE | 2020-03-18 08:19 | PRG ---
DATE OF SERVICE: 03/18/2020 SUBJECTIVE: Rafael Kilgore remains stable. OBJECTIVE: VITAL SIGNS: Heart rate 70, oximetry is 98, blood pressure when last recorded is 140/77. Intake and outputs positive 593. LUNGS: Remarkable for distant breath sounds. HEART: Regular rhythm. ABDOMEN: Soft. EXTREMITIES: Without asymmetry. Does have stasis changes that are unchanged. DIAGNOSTIC STUDIES: Chest radiograph still shows bilateral haziness in the lower lung posey. IMPRESSION: 1. Respiratory failure. 2. ? Pneumonia. 3. Obesity hypoventilation. 4. Clinical bronchospasm with chronic obstructive pulmonary disease. 5. History of atrial fibrillation. 6. History of hypertension. 7. History of diabetes. RECOMMENDATION: It is unlikely that he will improve rapidly. He might be someone that we consider early tracheostomy on given his significant obesity. Critical care time 30 min. Job ID: [id number] MTDD
[2020-03-18] MEDS: Carvedilol 6.25 MG TAB PO SCH ×2 (08:20→16:27)
[2020-03-18] MEDS: Apixaban 5 MG TAB PO SCH ×2 (08:20→21:17)
[2020-03-18] MEDS: Furosemide 40 MG TAB PO SCH ×2 (08:21→13:21)
[2020-03-18] MEDS: Finasteride 5 MG TAB PO SCH (08:21)
[2020-03-18] MEDS: Famotidine/PF 20 mg/2ml Vial SLOW IVP SCH (08:21)
[2020-03-18] MEDS: Cefepime 2 GM in Sodium Chloride 0.9% 100 ML IVPB SCH ×2 (08:21→21:14)
[2020-03-18] MEDS: Digoxin 0.25 MG TAB PO SCH (08:21)
[2020-03-18] MEDS: Docusate Sodium 100 MG/10 ML UDCUP PO SCH ×2 (08:22→21:18)
[2020-03-18] MEDS: Polyethylene Glycol 3350 17 GM Packet PO SCH (08:22)
[2020-03-18] MEDS: Insulin Glargine 32 UNITS in Pre-Filled Syringe 1 EACH SC SCH ×2 (08:22→21:12)
--- NOTE | 2020-03-18 09:35 | RAD ---
PORTABLE CHEST: Date: 03/18/2020 INDICATION: CCU follow-up. On ventilator. COMPARISON: 03/16/2020. FINDINGS/IMPRESSION: ET tube and NG tube remain in place. Opacification of both lung bases noted consistent with bilateral effusions and bibasilar atelectasis and infiltrates. Hazy infiltrate into the right mid lung again n oted. Considering differences in exposure and positioning, probably not significantly changed. POS: AGW
[2020-03-18] MEDS: fentaNYL Citrate/PF 2,000 MCG in Sodium Chloride 0.9% 60 ML IV SCH (13:47)
[2020-03-18] MEDS: Famotidine 20 MG TAB PER TUBE SCH (21:18)
[2020-03-19] MEDS: Propofol 1,000 MG/100 ML VIAL IV PRN ×4 (01:36→23:53)
[2020-03-19] MEDS: HumaLOG 300 UNITS/3 ML VIAL SC PRN ×4 (03:36→19:56)
[2020-03-19 05:30] LABS: #Eosinphils 0.3 thou/uL (0.0-0.7); #Lymphocytes 0.8 thou/uL (1.20-3.40); #Monocytes 0.7 thou/uL (0.11-0.59); #Neutrophils 8.7 thou/uL (1.40-6.50); %Basophils 0.1 % (0.0-1.0); %Eosinophils 2.4 % (0.0-10.0); %Lymphocytes 7.4 % (21.0-51.0); %Monocytes 6.9 % (0.0-10.0); %Neutrophils 83.2 % (42.0-75.0); Mean Corpuscular HGB CONC 31.8 g/dL (32.0-36.0); Mean Corpuscular Hemoglobin 28.2 pg (27.0-31.0); Mean Corpuscular Volume 88.7 fL (78.0-98.0); Mean Platelet Volume 7.8 fL (7.4-10.4); Platelet Count 236 thou/uL (130-400); White Blood Cell (WBC) Count 10.5 thou/uL (4.8-10.8)
[2020-03-19 05:50] LABS: Anion Gap 14 mmol/L (10-20); BUN (Urea Nitrogen) 25 mg/dL (8.4-25.7); Calc. Creatinine Clearance 160 mL/min (70-130); Calcium 9.1 mg/dL (7.8-10.44); Carbon Dioxide 31 mmol/L (23-31); Chloride 96 mmol/L (98-107); Glucose 231 mg/dL (83-110); Potassium 3.8 mmol/L (3.5-5.1); Sodium 137 mmol/L (136-145)
--- NOTE | 2020-03-19 07:20 | PDOC.FM ---
- Subjective Subjective: Pt intubated and sedated lying supine good urine output last 24 hours IVF @ KVO glucose control improving but still elevated above goal of 140-180's. remains difficult to extubate - Objective Vital Signs & Weight: Vital Signs (12 hours) Temp Pulse Resp BP Pulse Ox 03/19/20 05:38 17 03/19/20 04:00 99.8 F H 17 03/19/20 03:04 74 136/65 03/19/20 03:03 76 16 100 03/19/20 02:00 16 03/19/20 01:00 16 03/19/20 00:00 18 03/18/20 23:44 99.9 F H 03/18/20 22:14 87 134/77 03/18/20 22:13 82 16 97 03/18/20 22:00 16 03/18/20 21:55 99.6 F Weight Admit Weight 147.998 kg Weight 146.5 kg Most Recent Monitor Data Heart Rate from ECG 85 NIBP 128/66 NIBP BP-Mean 86 Respiration from ECG 16 SpO2 100 I&O: 03/18/20 03/19/20 03/20/20 06:59 06:59 06:59 Intake Total 1554 1544 1162 Output Total 2305 3725 100 Balance -751 -2181 1062 Result Diagrams: 03/19/20 04:08 03/19/20 04:08 Phys Exam - Physical Examination intubated and sedated lying supine HEENT: moist MMs Neck: supple coarse breath sounds iwth rhonchi Cardiovascular: RRR, no significant murmur Gastrointestinal: soft, no distention, positive bowel sounds Musculoskeletal: no edema, pulses present sedated Dx/Plan (1) Obesity hypoventilation syndrome Code(s): E66.2 - MORBID (SEVERE) OBESITY WITH ALVEOLAR HYPOVENTILATION Status: Acute (2) Afib Code(s): I48.91 - UNSPECIFIED ATRIAL FIBRILLATION Status: Acute Qualifiers: Atrial fibrillation type: persistent (3) DMII (diabetes mellitus, type 2) Status: Chronic Qualifiers: 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: with equipment operator intermodal yard use Diabetes mellitus complication status: with unspecified complications (4) HTN (hypertension) Code(s): I10 - ESSENTIAL (PRIMARY) HYPERTENSION Status: Chronic Qualifiers: Hypertension type: essential hypertension Qualified Code(s): I10 - Essential (primary) hypertension (5) Obesity Code(s): E66.9 - OBESITY, UNSPECIFIED Status: Chronic Qualifiers: Obesity type: unspecified obesity type - Plan Plan: #Acute hypercapenic respiratory failure requiring mechanical ventilation 2/2 obesity hypoventilation syndrom Possible inciting event COPD exacerbation vs CAP. Trouble with extubation due to obesity hypoventilation syndrome. Pulm plans for possible tracheostomy. - remaining intubated and sedated, per pulm recs - tube feeds, tolerating - continue cefepime 03/15, trending procal, 0.8->1.2->0.6-> 0.39-> 0.28. No fevers or worsening clinical status. - repeat CXR with increasing pleural effusion. IVF now on KVO with tube feeds - good urine output, 3725mL in past 24h #COPD - duonebs scheduled, dulera inhaler #DM2 - Glycemic control improving. Mod SSI, glargine increased to 32u BID. #Hyperkalemia, resolved #Indeterminate troponin -trop 0.05 -Likely due to demand #Afib -Hx of afib s/p ablation -ekg: a fib with normal rate -continue home eliquis - home cardizem held due to when given dropped HR to 40's. Stable rate without. 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 possible early trach candidate Addendum - Attending - Attending Attestation Date/Time: 03/20/20 3933 I personally evaluated the patient and discussed the management with Dr. Rodríguez. I agree with the History, Examination, Assessment and Plan documented above with any addition or exceptions noted below.
[2020-03-19] MEDS: Mometasone 100 MCG/Formoterol 5 MCG 120 PUFF INHALER INH SCH ×2 (07:42→18:17)
--- NOTE | 2020-03-19 07:47 | RAD ---
XR Chest 1 View Portable History: Ventilated patient Comparison: Radiograph prior day Findings: Patient is intubated with endotracheal tube tip at the clavicular level. Enteric tube tip b elow diaphragm although out of field of view. The left IJ approach central venous catheter is not well interrogated due to leftward patient rotatio n. Large layering effusions. Compressive atelectasis both lung bases. No pneumothorax. Impression: Given the differences in patient rotation, similar examination of the chest.
[2020-03-19] MEDS: Cefepime 2 GM in Sodium Chloride 0.9% 100 ML IVPB SCH ×2 (08:44→19:51)
[2020-03-19] MEDS: Polyethylene Glycol 3350 17 GM Packet PO SCH (08:45)
[2020-03-19] MEDS: Insulin Glargine 35 UNITS in Pre-Filled Syringe 1 EACH SC SCH ×2 (08:47→19:55)
[2020-03-19] MEDS: Finasteride 5 MG TAB PO SCH (08:47)
[2020-03-19] MEDS: Furosemide 40 MG TAB PO SCH ×2 (08:47→13:11)
[2020-03-19] MEDS: Digoxin 0.25 MG TAB PO SCH (08:47)
[2020-03-19] MEDS: Carvedilol 6.25 MG TAB PO SCH ×3 (08:48→19:53)
[2020-03-19] MEDS: Apixaban 5 MG TAB PO SCH ×2 (08:48→19:54)
[2020-03-19] MEDS: Famotidine 20 MG TAB PER TUBE SCH ×2 (08:48→19:54)
[2020-03-19] MEDS: Docusate Sodium 100 MG/10 ML UDCUP PO SCH ×2 (08:49→19:54)
[2020-03-19] MEDS ORDERED: Fentanyl CADD 100 ML ONE (13:07)
--- NOTE | 2020-03-19 16:33 | PRG ---
DATE OF SERVICE: 03/19/2020 SUBJECTIVE: Rafael remains stable. He is afebrile. OBJECTIVE: VITAL SIGNS: Heart rate is in 70s, respiratory rate in the , oximetry is 97, FiO2 is 40%. LUNGS: Remarkable for distant breath sounds. HEART: Regular rate and rhythm. ABDOMEN: Soft. LABORATORY DATA: White count 10.5, hemoglobin 13, platelets 236. Sodium 137, potassium 3.8, chloride 96, bicarb 31, BUN 25, creatinine 0.85. Intake and outputs negative 2180. IMAGING STUDIES: Chest x-ray is unchanged compared to yesterday's film. IMPRESSION: 1. Respiratory failure. 2. ? Pneumonia. 3. Obesity hypoventilation. 4. Chronic obstructive pulmonary disease with clinical bronchospasm. 5. Atrial fibrillation. 6. Hypertension. 7. Diabetes. PLAN: I have consulted General Surgery for trach and feeding tube. His family is agreeable to that. Given his size and deconditioning as well as his age, I doubt he will do well without a tracheostomy. At this point time, it is unclear whether or not this will be permanent. I would like to believe that he will not be to see as his illness progresses. Critical care time 30 min. Job ID: [id number] MTDD
--- NOTE | 2020-03-19 19:34 | CON ---
DATE OF CONSULTATION: HISTORY OF PRESENT ILLNESS: A 74-year-old male patient, morbidly obese, 5 feet 8 inches, 322 pounds, BMI over 40, admitted to the hospital through the emergency room to the [facility] on 03/14/2020. He has been seen by Dr. Andrews. The patient has a history of COPD, diabetes, hypertension, atrial fibrillation, sleep apnea, intubated in the ER due to hypoxia, COVID negative. The patient has increasing dyspnea, refusing to seek medical attention until he presented to the emergency room. I have been asked to see him regarding tracheostomy and PEG tube. He has a left IJ central line. We will plan this tomorrow. Family is in agreement. ALLERGIES: NONE. PAST SURGICAL HISTORY: Back surgery, nasal surgery, tonsillectomy, appendectomy, and foot surgery. PAST MEDICAL HISTORY: Diabetes, hypertension, COPD, sleep apnea, CHF, BPH, and AFib received Eliquis last night. The patient is sedated. PHYSICAL EXAMINATION: VITAL SIGNS: Height 5 feet 8 inches, 322 pounds, over 40 BMI. Blood pressure 109/58 and pulse 75. LUNGS: Clear to auscultation. No wheezing. CARDIAC: Regular rate and rhythm. ABDOMEN: Obese, soft, and nontender. EXTREMITIES: Edema, ankle. LABORATORY DATA: White count 10 and hemoglobin 13. Basic metabolic profile normal. BUN and creatinine 25 and 0.85, glucose is 220 to 280. ASSESSMENT AND PLAN: Respiratory failure secondary to obesity and pneumonia. Plan tracheostomy and percutaneous endoscopic gastrostomy tube and he already has a central line, left IJ. Risks and benefits explained, questions answered. Job ID: [id number]
[2020-03-20] MEDS: Propofol 1,000 MG/100 ML VIAL IV PRN ×3 (05:33→23:25)
[2020-03-20] MEDS: Mometasone 100 MCG/Formoterol 5 MCG 120 PUFF INHALER INH SCH ×2 (07:07→19:13)
--- NOTE | 2020-03-20 07:47 | PDOC.FM ---
- Subjective Subjective: pt intubated and sedated no acute overnight events and VSS planning for trach and peg placement today. glucose still elevated with increase in lantus, will increase more today - Objective MAR Reviewed: Yes Vital Signs & Weight: Vital Signs (12 hours) Temp Pulse Resp BP Pulse Ox 03/20/20 07:06 71 16 99 03/20/20 06:00 99.7 F H 16 03/20/20 04:00 21 H 03/20/20 02:24 71 16 95 03/20/20 02:00 16 03/20/20 00:09 16 03/19/20 23:43 16 03/19/20 23:03 69 03/19/20 23:02 71 16 99 03/19/20 22:00 16 03/19/20 20:00 99 03/19/20 19:53 108/55 L Weight Admit Weight 147.998 kg Weight 145.1 kg Most Recent Monitor Data Heart Rate from ECG 75 NIBP 97/54 NIBP BP-Mean 68 Respiration from ECG 16 SpO2 99 I&O: 03/19/20 03/20/20 03/21/20 06:59 06:59 06:59 Intake Total 1544 4188 Output Total 3725 2820 Balance -2181 1368 Result Diagrams: 03/19/20 04:08 03/19/20 04:08 Phys Exam - Physical Examination intubated and sedated HEENT: moist MMs Neck: no JVD, supple coarse breath sounds Cardiovascular: RRR, no significant murmur Gastrointestinal: soft, no distention, positive bowel sounds Musculoskeletal: pulses present sedated Skin: normal turgor, cap refill <2 seconds Dx/Plan (1) Obesity hypoventilation syndrome Code(s): E66.2 - MORBID (SEVERE) OBESITY WITH ALVEOLAR HYPOVENTILATION Status: Acute (2) Afib Code(s): I48.91 - UNSPECIFIED ATRIAL FIBRILLATION Status: Acute Qualifiers: Atrial fibrillation type: persistent (3) DMII (diabetes mellitus, type 2) Status: Chronic Qualifiers: Diabetes mellitus residential insulin use: with residential use Diabetes mellitus complication status: with unspecified complications (4) HTN (hypertension) Code(s): I10 - ESSENTIAL (PRIMARY) HYPERTENSION Status: Chronic Qualifiers: Hypertension type: essential hypertension Qualified Code(s): I10 - Essential (primary) hypertension (5) Obesity Code(s): E66.9 - OBESITY, UNSPECIFIED Status: Chronic Qualifiers: Obesity type: unspecified obesity type - Plan Plan: #Acute hypercapenic respiratory failure requiring mechanical ventilation 2/2 obesity hypoventilation syndrome Possible inciting event COPD exacerbation vs CAP. Trouble with extubation due to obesity hypoventilation syndrome. Pulm plans for possible tracheostomy. to be performed 03/[address] Carimchael, as well as peg tube placement. - remaining intubated and sedated, per pulm recs. transition to trach care 03/20. - tube feeds, tolerating - continue cefepime 03/15, trending procal, 0.8->1.2->0.6-> 0.39-> 0.28. No fevers or worsening clinical status. - repeat CXR with increasing pleural effusion. IVF now on KVO with tube feeds - good urine output in past 24h #COPD - duonebs scheduled, dulera inhaler #DM2 - Glycemic control improving. Mod SSI, glargine increased to 40u BID. #Hyperkalemia, resolved #Indeterminate troponin -trop 0.05 -Likely due to demand #Afib -Hx of afib s/p ablation -ekg: a fib with normal rate -continue home eliquis - home cardizem held due to when given dropped HR to 40's. Stable rate without. 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 Addendum - Attending - Attending Attestation Date/Time: 03/20/20 5529 I personally evaluated the patient and discussed the management with Dr. Rodríguez. I agree with the History, Examination, Assessment and Plan documented above with any addition or exceptions noted below.
--- NOTE | 2020-03-20 08:15 | RAD ---
EXAM: CHEST ONE VIEW HISTORY: On ventilator. Follow-up evaluation. COMPARISON: 03/19/2020 FINDINGS: Endotracheal tube and nasogastric tube as well as left-sided vascular catheter remain in place. Cardi ac silhouette is magnified by projection. Bilateral pleural effusions are again seen larger in size on the right. Associated bibasilar atelectasis is present. Mild prominence of central pulmonary vascu lature is present. No significant interval change compared to prior study given differences in patient positioning and technique. IMPRESSION: Stable chest.
[2020-03-20] MEDS: Carvedilol 6.25 MG TAB PO SCH ×2 (08:18→20:39)
[2020-03-20] MEDS: Apixaban 5 MG TAB PO SCH (08:18)
[2020-03-20] MEDS: Digoxin 0.25 MG TAB PO SCH (08:19)
[2020-03-20] MEDS: Furosemide 40 MG TAB PO SCH ×2 (08:19→15:28)
[2020-03-20] MEDS: Polyethylene Glycol 3350 17 GM Packet PO SCH (08:19)
[2020-03-20] MEDS: Docusate Sodium 100 MG/10 ML UDCUP PO SCH ×2 (08:19→20:39)
[2020-03-20] MEDS: Famotidine 20 MG TAB PER TUBE SCH ×2 (08:19→20:39)
[2020-03-20] MEDS: Finasteride 5 MG TAB PO SCH (08:19)
[2020-03-20] MEDS: Insulin Glargine 40 UNITS in Pre-Filled Syringe 1 EACH SC SCH ×2 (08:19→22:09)
[2020-03-20] MEDS: Cefepime 2 GM in Sodium Chloride 0.9% 100 ML IVPB SCH ×2 (08:38→20:38)
[2020-03-20] MEDS ORDERED: Fentanyl CADD 100 ML ONE (08:40)
[2020-03-20] MEDS ORDERED: Bupivacaine PF 0.5% 30 ML VIAL ONE (10:11)
[2020-03-20] MEDS ORDERED: Lidocaine 1% w/Epinephrine 1:100K 20 ML VIAL ONE (10:11)
[2020-03-20] MEDS ORDERED: Ondansetron HCl/PF 4 MG/2 ML Vial IVP PRN (10:22)
[2020-03-20] MEDS ORDERED: Propofol 1,000 MG/100 ML VIAL IV ONE (11:08)
[2020-03-20] MEDS ORDERED: Rocuronium Bromide 10 MG/ML (10ML VIAL) ONE (11:33)
[2020-03-20] MEDS ORDERED: PROPOFOL 200 MG/20 ML VIAL ONE (11:37)
--- NOTE | 2020-03-20 12:34 | OP ---
DATE OF PROCEDURE: 03/20/2020 PREOPERATIVE DIAGNOSES: Morbid obesity, hypoventilation syndrome, respiratory failure, pneumonia, and dysphagia. POSTOPERATIVE DIAGNOSES: Morbid obesity, hypoventilation syndrome, respiratory failure, pneumonia, and dysphagia. PROCEDURES PERFORMED: #8 Bivona tracheostomy tube and percutaneous endoscopic gastrostomy tube. ANESTHESIA: General, local 1% Xylocaine with epinephrine. DESCRIPTION OF PROCEDURE: The patient was taken to the operating room, where on his bed, neck and chest were clipped of hair, prepared with ChloraPrep and draped in routine fashion. Local anesthetic infiltrated in the skin and subcutaneous tissue about the operative site. Transverse incision was made from the skin, platysma, supra manubrial carried down to the subcutaneous tissue reflecting the strap muscles laterally dividing the isthmus of the thyroid with the cautery, noting good hemostasis, dissecting the trachea below the cricoid placing strap sutures of 3-0 Prolene on either side of the trachea and placing the air knot, securing it to the chest wall with Mastisol and OpSite. The cricoid identified and reflected cephalad with the tracheal hook and over 2 cartilaginous rings and anterior tracheal window was made sharply, opened under direct visualization. Endotracheal tube withdrawn placing the #8 Bivona, inflating the cuff, securing it to this skin with a fixation appliance of 3-0 Prolene. After closing the incisions on either side with 3-0 Prolene and tracheostomy straps secured. Good hemostasis had been noted. The patient connected to the ventilator with good oxygenation and CO2 return. Endoscope was placed per os under direct visualization. Using air insufflation, passed the esophagus into the stomach, insufflated noting a good indentation of left subcostal and area prepared with ChloraPrep. Stab incision was made. Trocar catheter induced, visualized endoscopically and the wire introduced through this trocar into the stomach, visualized endoscopically, grasped with a snare, bringing the endoscope snare out. Wire connected to the feeding device, which was lubricated and pulled back down through the esophagus, fixated to the abdominal wall with a fixation device. Tube tailored to length, and connected to the feeding device. The patient tolerated the procedure well. Job ID: [id number]
--- NOTE | 2020-03-20 20:53 | PRG ---
DATE OF SERVICE: 03/20/2020 SUBJECTIVE: Rafael Kilgore stable. He underwent tracheostomy today. OBJECTIVE: VITAL SIGNS: Heart rate 77, blood pressure 115/72, respiratory rate 16, . LUNGS: Unchanged. HEART: Unchanged. ABDOMEN: Unchanged. Intake and output +1368. LABORATORY DATA: White count is 10.5 yesterday. No electrolytes today. IMPRESSION: Respiratory failure. Check lab in the morning. We will work towards a trach collar tomorrow. CRITICAL CARE TIME: 30 minutes. Job ID: [id number]
[2020-03-20] MEDS: HumaLOG 300 UNITS/3 ML VIAL SC PRN (21:51)
[2020-03-21] MEDS ORDERED: Fentanyl CADD 100 ML ONE (05:26)
[2020-03-21] MEDS: Propofol 1,000 MG/100 ML VIAL IV PRN (05:36)
[2020-03-21 05:38] LABS: Band 2 % (5-11); Eosinophils 2 % (0-10); Hypochromia SLIGHT = 6-15 cells (100X) (0-5/hpf); Lymphocytes 7 % (21-51); MDiff Complete? YES; Mean Corpuscular Hemoglobin 28.9 pg (27.0-31.0); Mean Corpuscular Volume 90.4 fL (78.0-98.0); Mean Platelet Volume 8.1 fL (7.4-10.4); Monocytes 5 % (0-10); Neutrophil 84 % (42-75); Platelet Count 232 thou/uL (130-400); Platelet Morphology Comment Appears Adequate; RBC Distribution Width 14.9 % (11.5-14.5); Red Blood Cell (RBC) Count 4.48 mill/uL (4.70-6.10); White Blood Cell (WBC) Count 11.2 thou/uL (4.8-10.8)
[2020-03-21 05:53] LABS: Anion Gap 15 mmol/L (10-20); BUN (Urea Nitrogen) 33 mg/dL (8.4-25.7); Calc. Creatinine Clearance 136 mL/min (70-130); Calcium 9.3 mg/dL (7.8-10.44); Carbon Dioxide 30 mmol/L (23-31); Chloride 99 mmol/L (98-107); Glucose 240 mg/dL (83-110); Potassium 3.9 mmol/L (3.5-5.1); Sodium 140 mmol/L (136-145)
[2020-03-21] MEDS: HumaLOG 300 UNITS/3 ML VIAL SC PRN ×4 (06:01→21:55)
[2020-03-21] MEDS: Mometasone 100 MCG/Formoterol 5 MCG 120 PUFF INHALER INH SCH ×2 (07:18→18:09)
[2020-03-21] MEDS: Carvedilol 6.25 MG TAB PO SCH ×2 (07:31→21:06)
[2020-03-21] MEDS: Furosemide 40 MG TAB PO SCH ×2 (07:31→14:57)
[2020-03-21] MEDS: Polyethylene Glycol 3350 17 GM Packet PO SCH (07:31)
[2020-03-21] MEDS: Docusate Sodium 100 MG/10 ML UDCUP PO SCH ×2 (07:31→21:07)
[2020-03-21] MEDS: Digoxin 0.25 MG TAB PO SCH (07:31)
[2020-03-21] MEDS: Finasteride 5 MG TAB PO SCH (07:31)
[2020-03-21] MEDS: Famotidine 20 MG TAB PER TUBE SCH ×2 (07:32→21:06)
[2020-03-21] MEDS: Cefepime 2 GM in Sodium Chloride 0.9% 100 ML IVPB SCH ×2 (07:32→21:05)
[2020-03-21] MEDS: Insulin Glargine 40 UNITS in Pre-Filled Syringe 1 EACH SC SCH ×2 (07:36→21:35)
--- NOTE | 2020-03-21 08:37 | RAD ---
EXAM: CHEST ONE VIEW HISTORY: On ventilator. COMPARISON: 03/20/2020 FINDINGS: Endotracheal tube has been removed with placement of tracheostomy device. Nasogastric tube is no long er visualized. Left-sided vascular catheter remains in place. Again noted are bibasilar pleural and parenchymal lung changes likely related to bilateral pleural effusions and associated atelectasis. Ce ntral pulmonary vasculature remains prominent. No other interval change. IMPRESSION: 1. Interval removal of the endotracheal and nasogastric tubes with placement of tracheostomy device. 2. Bibasilar pleural and parenchymal lung changes which may be related to bilateral pleural effusions and atelectasis. There is slightly greater patchy parenchymal density in the right midlung zone which could be related to infiltrate/pneumonia.
--- NOTE | 2020-03-21 10:25 | PDOC.FM ---
- Subjective Subjective: Pt stable, lying supine sedated and mechanical ventilation through tracheostomy. utine output 2820 last 24 hours. Tmax 100 overnight. ordered some tylenol. collected blood ccx's. continue cefepime. Procal remains low @ 0.22. No acute overnight events VSS - Objective MAR Reviewed: Yes Vital Signs & Weight: Vital Signs (12 hours) Temp Pulse Resp BP Pulse Ox 03/21/20 08:00 22 H 99 03/21/20 07:58 100 F H 03/21/20 07:31 98 141/84 H 03/21/20 07:19 90 03/21/20 06:00 19 03/21/20 04:00 99.7 F H 26 H 03/21/20 02:00 18 03/21/20 01:32 84 03/21/20 01:30 84 16 97 03/21/20 00:00 98.5 F 16 03/20/20 22:42 82 16 98 03/20/20 22:41 85 Weight Admit Weight 147.998 kg Weight 140.6 kg Most Recent Monitor Data Heart Rate from ECG 89 NIBP 148/82 NIBP BP-Mean 104 Respiration from ECG 21 SpO2 100 I&O: 03/20/20 03/21/20 03/22/20 06:59 06:59 06:59 Intake Total 4188 1242.5 230 Output Total 2820 1350 95 Balance 1368 -107.5 135 Result Diagrams: 03/21/20 04:31 03/21/20 04:31 Radiology Reviewed by me: Yes (worsing infiltrates. ) Phys Exam - Physical Examination sedated, on vent with trach. HEENT: moist MMs Neck: supple bilateral rhonchi Cardiovascular: RRR, no significant murmur, no rub Gastrointestinal: soft, no distention, positive bowel sounds Musculoskeletal: pulses present sedated Skin: normal turgor, cap refill <2 seconds Dx/Plan (1) Obesity hypoventilation syndrome Code(s): E66.2 - MORBID (SEVERE) OBESITY WITH ALVEOLAR HYPOVENTILATION Status: Acute (2) Afib Code(s): I48.91 - UNSPECIFIED ATRIAL FIBRILLATION Status: Acute Qualifiers: Atrial fibrillation type: persistent (3) DMII (diabetes mellitus, type 2) Status: Chronic Qualifiers: Diabetes mellitus fpc insulin use: with bed bug exterminator use Diabetes mellitus complication status: with unspecified complications (4) HTN (hypertension) Code(s): I10 - ESSENTIAL (PRIMARY) HYPERTENSION Status: Chronic Qualifiers: Hypertension type: essential hypertension Qualified Code(s): I10 - Essential (primary) hypertension (5) Obesity Code(s): E66.9 - OBESITY, UNSPECIFIED Status: Chronic Qualifiers: Obesity type: unspecified obesity type - Plan Plan: #Acute hypercapenic respiratory failure requiring mechanical ventilation 2/2 obesity hypoventilation syndrome Possible inciting event COPD exacerbation vs CAP. Trouble with extubation due to obesity hypoventilation syndrome. Pulm recommended tracheostomy. Performed 03/[address] Carmichael, as well as peg tube placement. Pt tolerated procedure well. Pt remains sedated. - Paleontologist consulted and management ventilator and resp concerns. appreciate recs. - tube feeds, tolerating - continue cefepime 03/15, trending procal, 0.8->1.2->0.6-> 0.39-> 0.28-> 0.22. Tmax 100 on 03/21. ordered blood ccx. continue cefepime. - repeat CXR with increasing pleural effusion. IVF now on KVO with tube feeds - good urine output in past 24h #COPD - duonebs scheduled, dulera inhaler #DM2 - Glycemic control improving. Mod SSI, glargine increased to 40u BID. #Hyperkalemia, resolved #Indeterminate troponin -trop 0.05 -Likely due to demand #Afib -Hx of afib s/p ablation -ekg: a fib with normal rate -continue home eliquis - home cardizem held due to when given dropped HR to 40's. Stable rate without. #BPH -continue home meds #Chronic diastolic heart failure -hx obtained from prior admissions -continue home lasix BID #MANDA -uses CPAP at home Code: Full, per PCP: PULPER TENDER IVF: SL (but combination of all drips ~70ml/hr) DVT Ppx: eliquis Lines: Left IJ Dispo: Tracheostomy with mechanical ventilation and sedated, appreciate pulm recs. Addendum - Attending - Attending Attestation Date/Time: 03/21/20 0758 I personally evaluated the patient and discussed the management with Dr. Rodríguez. I agree with the History, Examination, Assessment and Plan documented above with any addition or exceptions noted below.
[2020-03-21] MEDS ORDERED: Fentanyl CADD 100 ML IV SCH (12:00)
[2020-03-21] MEDS ORDERED: Haloperidol Lactate 5 MG/ML VIAL IM PRN (16:13)
[2020-03-21] MEDS: niCARdipine 25 MG in Sodium Chloride 0.9% 250 ML 240 ML IVPB SCH ×3 (17:00→21:16)
--- NOTE | 2020-03-21 18:38 | PRG ---
DATE OF SERVICE: 03/21/2020 SUBJECTIVE: Mr. Kilgore has tracheostomy in place. He is allowed to awaken. OBJECTIVE: VITAL SIGNS: Heart rate is 107. Respiratory rates in high 20s to 30s. His oximetry is in the 90s. Blood pressure 189/88. We significantly decreased his ventilatory support today. LUNGS: Remarkable for distant breath sounds. HEART: Regular rhythm. ABDOMEN: Soft. IMAGING DATA: Chest radiograph shows bibasilar infiltrates. LABORATORY DATA: White count 11.2, hemoglobin 13, platelets 232. Electrolytes are unremarkable. IMPRESSION: 1. Respiratory failure. 2. Morbid obesity. His says he is compliant with his CPAP at home. 3. Deconditioning. 4. History of atrial fibrillation. 5. Diabetes. 6. History of hypertension. 7. History of hospitalization in 2017 for Chronic obstructive pulmonary disease exacerbation. 8. History of diastolic heart failure. PLAN: 1. Continue slow weaning attempts. 2. Continue anticoagulation for his atrial fibrillation. 3. Continue IV antimicrobial therapy at this time. 4. We will decrease sedation. 5. I met with the multiple times today and answered all her questions. Job ID: [id number]
[2020-03-21] MEDS ORDERED: Labetalol HCl 100 MG/20 ML VIAL SLOW IVP PRN (19:17)
[2020-03-21] MEDS: Acetaminophen 650 MG/20.3 ML UDCUP PO PRN (19:41)
[2020-03-21] MEDS: Lorazepam 2 MG/ML VIAL SLOW IVP PRN (22:50)
[2020-03-21] MEDS ORDERED: niCARdipine 50 MG in Sodium Chloride 0.9% 250 ML 230 ML IVPB SCH (23:15)
[2020-03-22] MEDS: Acetaminophen 650 MG/20.3 ML UDCUP PO PRN ×2 (01:28→17:12)
[2020-03-22] MEDS: Lorazepam 2 MG/ML VIAL SLOW IVP PRN (04:31)
[2020-03-22] MEDS: HumaLOG 300 UNITS/3 ML VIAL SC PRN ×4 (04:37→20:47)
[2020-03-22 04:38] LABS: Anion Gap 16 mmol/L (10-20); BUN (Urea Nitrogen) 34 mg/dL (8.4-25.7); Calc. Creatinine Clearance 119 mL/min (70-130); Calcium 9.2 mg/dL (7.8-10.44); Carbon Dioxide 28 mmol/L (23-31); Chloride 101 mmol/L (98-107); Glucose 439 mg/dL (83-110); Sodium 141 mmol/L (136-145)
[2020-03-22 05:30] LABS: Anisocytosis SLIGHT = 6-15 cells (100X) (0-5/hpf); Band 9 % (5-11); Lymphocytes 4 % (21-51); MDiff Complete? YES; Mean Corpuscular HGB CONC 29.4 g/dL (32.0-36.0); Mean Corpuscular Hemoglobin 26.3 pg (27.0-31.0); Mean Corpuscular Volume 89.2 fL (78.0-98.0); Mean Platelet Volume 8.4 fL (7.4-10.4); Monocytes 5 % (0-10); Neutrophil 81 % (42-75); Platelet Count 281 thou/uL (130-400); RBC Distribution Width 14.9 % (11.5-14.5); Red Blood Cell (RBC) Count 4.96 mill/uL (4.70-6.10); White Blood Cell (WBC) Count 11.8 thou/uL (4.8-10.8)
--- NOTE | 2020-03-22 07:15 | PDOC.FM ---
- Subjective Subjective: Pt T max overnight 102.1 F glucose difficult to control past 24 hours. received trach and peg 03/20, off sedation and not alert moist skin folds with start of skin breakdown per nurse. HR 130 overnight with elevated BP. cardene ggt on and one dose labetalol give, with resolution. - Objective MAR Reviewed: Yes Vital Signs & Weight: Vital Signs (12 hours) Temp Pulse Resp BP Pulse Ox 03/22/20 07:01 90 139/87 03/22/20 06:00 24 H 03/22/20 04:00 102.1 F H 25 H 03/22/20 02:30 106 H 150/81 H 03/22/20 02:29 113 H 25 H 96 03/22/20 02:00 24 H 03/22/20 01:11 104 H 134/71 03/22/20 00:00 98.4 F 30 H 03/21/20 22:40 116 H 162/74 H 03/21/20 22:38 120 H 41 H 93 L 03/21/20 22:00 40 H 03/21/20 21:06 184/90 H 03/21/20 20:00 42 H 94 L 03/21/20 19:41 102.8 F H 03/21/20 19:39 134 H 184/90 H Weight Admit Weight 147.998 kg Weight 140.5 kg Most Recent Monitor Data Heart Rate from ECG 94 NIBP 137/79 NIBP BP-Mean 98 Respiration from ECG 30 SpO2 99 I&O: 03/21/20 03/22/20 03/23/20 06:59 06:59 06:59 Intake Total 1242.5 4338.9 Output Total 1350 2045 Balance -107.5 2293.9 Result Diagrams: 03/23/20 03:12 03/23/20 03:12 Phys Exam - Physical Examination lying supine with trach and peg tube in place. no longer sedated, but not alert or responsive HEENT: moist MMs, sclera anicteric Neck: no JVD, supple diffuse rhonichi Cardiovascular: RRR, no significant murmur Gastrointestinal: soft, no distention, positive bowel sounds Musculoskeletal: no edema, pulses present not on sedation. not alert, does not respond to voice or sternal rub. Deviation from normal: BLE waxy, erythematous Lower legs, consistent with chronic venous stasis Dx/Plan (1) Obesity hypoventilation syndrome Code(s): E66.2 - MORBID (SEVERE) OBESITY WITH ALVEOLAR HYPOVENTILATION Status: Acute (2) Afib Code(s): I48.91 - UNSPECIFIED ATRIAL FIBRILLATION Status: Acute Qualifiers: Atrial fibrillation type: persistent (3) DMII (diabetes mellitus, type 2) Status: Chronic Qualifiers: Diabetes mellitus technician terminal and repeater insulin use: with mcfp use Diabetes mellitus complication status: with unspecified complications (4) HTN (hypertension) Code(s): I10 - ESSENTIAL (PRIMARY) HYPERTENSION Status: Chronic Qualifiers: Hypertension type: essential hypertension Qualified Code(s): I10 - Essent ial (primary) hypertension (5) Obesity Code(s): E66.9 - OBESITY, UNSPECIFIED Status: Chronic Qualifiers: Obesity type: unspecified obesity type - Plan Plan: #Acute hypercapenic respiratory failure requiring mechanical ventilation 2/2 obesity hypoventilation syndrome Possible inciting event COPD exacerbation vs CAP. Trouble with extubation due to obesity hypoventilation syndrome. Pulm recommended tracheostomy. Performed 03/[address] Carmichael, as well as peg tube placement. Pt tolerated procedure well. Pt weaned off sedation 03/21. Pt not alert and not awake 03/21-03/22. Developed fever 03/21. Ordered blood ccx. added urine ccx and sputum ccx 03/22. Repeated COVID PCR 03/22. - Pulm consulted and management ventilator and resp concerns. appreciate recs. - tube feeds, tolerating - continue cefepime 03/15, trending procal, 0.8->1.2->0.6-> 0.39-> 0.28-> 0.22. Tmax 100 on 03/21, 102.2 on 03/22. ordered blood ccx, added urine ccx and covid swab. continue cefepime. - repeat CXR with increasing pleural effusion. IVF now on KVO with tube feeds - good urine output in past 24h #COPD - duonebs scheduled, dulera inhaler #DM2 - Glycemic control improving. Mod SSI, glargine increased to 40u BID. #Hyperkalemia, resolved #Indeterminate troponin -trop 0.05 -Likely due to demand #Afib -Hx of afib s/p ablation -ekg: a fib with normal rate -continue home eliquis - home cardizem held due to when given dropped HR to 40's. - HR increasing, plan to continue home diltiazem. #BPH -continue home meds #Chronic diastolic heart failure -hx obtained from prior admissions -continue home lasix BID #MANDA -uses CPAP at home Code: Full, per PCP: SOCIAL STUDIES DEPARTMENT CHAIR IVF: SL (but combination of all drips ~70ml/hr) DVT Ppx: eliquis Lines: Left IJ Dispo: Tracheostomy with mechanical ventilation, appreciate pulm recs. Addendum - Attending - Attending Attestation Date/Time: 03/23/20 9090 I personally evaluated the patient and discussed the management with Dr. Rodríguez yesterday. I agree with the History, Examination, Assessment and Plan documented above with any addition or exceptions noted below.
[2020-03-22] MEDS: Mometasone 100 MCG/Formoterol 5 MCG 120 PUFF INHALER INH SCH ×2 (08:29→18:38)
--- NOTE | 2020-03-22 09:20 | RAD ---
SINGLE VIEW CHEST: Date: 03/22/2020 COMPARISON: 03/21/2020. HISTORY: Ventilated patient with respiratory failure. FINDINGS: Single view of the chest shows an enlarged but stable cardiomediastinal silhouette. The central venou s catheter and tracheostomy are unchanged in position. Bilateral pulmonary vascular enlargement is se en. Scattered multifocal infiltrates are seen in the lungs and unchanged. Degenerative changes are se en in the spine. IMPRESSION: Multifocal pneumonia. POS: OFF
[2020-03-22] MEDS: Insulin Glargine 40 UNITS in Pre-Filled Syringe 1 EACH SC SCH (10:00)
[2020-03-22] MEDS: Cefepime 2 GM in Sodium Chloride 0.9% 100 ML IVPB SCH (11:23)
[2020-03-22] MEDS: Carvedilol 6.25 MG TAB PO SCH ×2 (11:24→21:50)
[2020-03-22] MEDS: Digoxin 0.25 MG TAB PO SCH (11:24)
[2020-03-22] MEDS: Furosemide 40 MG TAB PO SCH ×2 (11:25→14:36)
[2020-03-22] MEDS: Apixaban 5 MG TAB PO SCH ×2 (11:25→20:45)
[2020-03-22] MEDS: Tamsulosin HCl 0.4 MG CAP PO SCH (11:25)
[2020-03-22] MEDS: Famotidine 20 MG TAB PER TUBE SCH ×2 (11:25→21:15)
[2020-03-22] MEDS: Finasteride 5 MG TAB PO SCH (11:25)
[2020-03-22] MEDS: Docusate Sodium 100 MG/10 ML UDCUP PO SCH ×2 (11:26→21:15)
[2020-03-22] MEDS: Polyethylene Glycol 3350 17 GM Packet PER TUBE SCH (11:29)
--- NOTE | 2020-03-22 14:01 | PRG ---
DATE OF SERVICE: 03/22/2020 SUBJECTIVE: Mr. Kilgore remains mechanically ventilated. He became tachypneic last night, had to go back on full ventilatory support. We are trying to decrease ventilatory support every morning, then turning back up in the evening, working towards a trach collar this weekend if he tolerates this. OBJECTIVE: VITAL SIGNS: Blood pressure 156/89, heart rate is in 80s, respiratory rates in the high 20s. LUNGS: Remarkable for coarse equal breath sounds. HEART: Regular rhythm. ABDOMEN: Massive and nontender. EXTREMITIES: With stasis changes. LABORATORY DATA: White count 11.8, hemoglobin 13, platelets 281. Sodium 141, potassium 4, chloride 101, bicarb 28, BUN 34, creatinine 1.1. Glucoses have been in the 200s. Intake and outputs positive 2293. His admitting weight was 326. Net scale says his weight is 309, but I am not sure that is accurate. Chest radiograph still shows bilateral infiltrates. He had a temperature of a 102 this morning, so his COVID screening was repeated. COVID repeat screen is not back yet. With any fever, he needs blood cultures and different antibiotics as he is at risk for a nosocomial infection. We will adjust his antimicrobial therapy. We will continue to move towards trach collar trials, although with his obesity and his pulmonary infiltrates that are likely bacterial pneumonia. I doubt he will make much headway in the next few days. Next week, LTAC evaluation would be appropriate. Critical care time 30 min. Job ID: [id number] MTDD
[2020-03-22] MEDS: Meropenem 2 GM, Admixture Fee 1 EACH in Sodium Chloride 0.9% 100 ML IVPB SCH ×2 (14:37→21:51)
[2020-03-22 14:52] LABS: SARS-CoV-2 NAA Rapid Test Not Detected (NotDetected)
[2020-03-22] MEDS: Vancomycin 1 GM in Premix Bag 1 BAG IVPB SCH (15:09)
[2020-03-22] MEDS: metFORMIN 500 MG TAB PO SCH (17:12)
[2020-03-22 18:47] LABS: Anion Gap 17 mmol/L (10-20); BUN (Urea Nitrogen) 34 mg/dL (8.4-25.7); Calc. Creatinine Clearance 119 mL/min (70-130); Calcium 9.1 mg/dL (7.8-10.44); Carbon Dioxide 29 mmol/L (23-31); Chloride 99 mmol/L (98-107); Glucose 457 mg/dL (83-110); Potassium 5.8 mmol/L (3.5-5.1); Sodium 139 mmol/L (136-145)
[2020-03-22] MEDS: Insulin Glargine 45 UNITS in Pre-Filled Syringe 1 EACH SC SCH (20:47)
[2020-03-22] MEDS ORDERED: Vancomycin 1 GM in Premix Bag 1 BAG IVPB SCH (21:00)
[2020-03-23] MEDS: Acetaminophen 650 MG/20.3 ML UDCUP PO PRN ×2 (00:59→21:08)
[2020-03-23] MEDS: Vancomycin 1 GM in Premix Bag 1 BAG IVPB SCH ×2 (03:40→15:00)
[2020-03-23] MEDS: Nystatin Powder 15 GM BOT TOP PRN ×2 (03:56→18:22)
[2020-03-23 03:57] LABS: ALT (SGPT) 30 U/L (8-55); AST (SGOT) 25 U/L (5-34); Albumin 3.3 g/dL (3.4-4.8); Alkaline Phosphatase 146 U/L (40-110); Anion Gap 17 mmol/L (10-20); BUN (Urea Nitrogen) 34 mg/dL (8.4-25.7); Bilirubin, Total 1.1 mg/dL (0.2-1.2); Calc. Creatinine Clearance 128 mL/min (70-130); Calcium 9.5 mg/dL (7.8-10.44); Carbon Dioxide 31 mmol/L (23-31); Chloride 100 mmol/L (98-107); Globulin 3.8 g/dL (2.4-3.5); Glucose 358 mg/dL (83-110); Potassium 3.8 mmol/L (3.5-5.1); Protein, Total 7.1 g/dL (5.8-8.1); Sodium 144 mmol/L (136-145)
[2020-03-23 04:38] LABS: Band 2 % (5-11); Hemoglobin 13.5 g/dL (14.0-18.0); Lymphocytes 9 % (21-51); MDiff Complete? YES; Mean Corpuscular HGB CONC 31.7 g/dL (32.0-36.0); Mean Corpuscular Hemoglobin 28.4 pg (27.0-31.0); Mean Corpuscular Volume 89.8 fL (78.0-98.0); Mean Platelet Volume 8.2 fL (7.4-10.4); Metamyelocyte 1 % (0-0); Monocytes 9 % (0-10); Neutrophil 79 % (42-75); Platelet Count 258 thou/uL (130-400); RBC Distribution Width 14.6 % (11.5-14.5); Red Blood Cell (RBC) Count 4.74 mill/uL (4.70-6.10); White Blood Cell (WBC) Count 12.7 thou/uL (4.8-10.8)
[2020-03-23] MEDS: HumaLOG 300 UNITS/3 ML VIAL SC PRN ×4 (05:31→21:37)
[2020-03-23] MEDS: Mometasone 100 MCG/Formoterol 5 MCG 120 PUFF INHALER INH SCH ×2 (06:54→19:30)
[2020-03-23 06:59] LABS: Actual Bicarbonate (HCO3a) 31.7 mEq/L (22-28); CO2 Tension 45.3 mmHg (35.0-45.0); Calcium, Ionized (arterial) 1.18 mmol/L (1.12-1.30); Hemoglobin (Hb) 14.1 g/dL (14.0-18.0); O2 Tension (PaO2), arterial 90.3 mmHg (> 70.0); Potassium - ABG Lab 3.65 mmol/L (3.70-5.30); pH, Arterial 7.46 (7.35-7.45)
[2020-03-23] MEDS: Meropenem 2 GM, Admixture Fee 1 EACH in Sodium Chloride 0.9% 100 ML IVPB SCH ×3 (07:00→22:45)
--- NOTE | 2020-03-23 07:07 | PDOC.FM ---
- Subjective Subjective: COVID reswab negative blood ccx no growth to date resp GS showed no organisms dilt restarted and HR 100's now, will increase to home dose today as he can tolerate now. not waking up after being off sedation for 2 days now - Objective Vital Signs & Weight: Vital Signs (12 hours) Temp Pulse Resp BP Pulse Ox 03/23/20 06:54 95 151/80 H 03/23/20 06:52 101 H 20 99 03/23/20 06:00 22 H 03/23/20 04:00 22 H 03/23/20 02:44 100 154/107 H 03/23/20 02:00 106 H 23 H 100 03/23/20 01:09 100 161/89 H 03/23/20 01:00 22 H 03/23/20 00:59 100.5 F H 96 23 H 161/89 H 03/23/20 00:15 97.6 F 03/23/20 00:00 22 H 03/22/20 22:42 101 H 142/94 H 03/22/20 22:40 100 21 H 100 03/22/20 22:00 24 H 03/22/20 21:50 147/95 H 03/22/20 20:00 100.5 F H 24 H 100 03/22/20 19:42 100.3 F H 97 21 H 136/87 03/22/20 19:39 97.9 F Weight Admit Weight 147.998 kg Weight 140.6 kg Most Recent Monitor Data Heart Rate from ECG 102 NIBP 157/107 NIBP BP-Mean 123 Respiration from ECG 26 SpO2 97 I&O: 03/22/20 03/23/20 03/24/20 06:59 06:59 06:59 Intake Total 4338.9 1881 Output Total 2042 3795 Balance 2293.9 -1914 Result Diagrams: 03/23/20 03:12 03/23/20 03:12 Radiology Reviewed by me: Yes Phys Exam - Physical Examination trach and peg in place off sedation but only withdrawls from painful stimuli. HEENT: moist MMs, sclera anicteric Neck: supple diffuse coarse rhonchi Cardiovascular: RRR, no significant murmur Gastrointestinal: soft, no distention, positive bowel sounds Musculoskeletal: pulses present withdrawls from painful stimuli. flexion to pain and no eye opening. Skin: cap refill <2 seconds Dx/Plan (1) Obesity hypoventilation syndrome Code(s): E66.2 - MORBID (SEVERE) OBESITY WITH ALVEOLAR HYPOVENTILATION Status: Acute (2) Afib Code(s): I48.91 - UNSPECIFIED ATRIAL FIBRILLATION Status: Acute Qualifiers: Atrial fibrillation type: persistent (3) DMII (diabetes mellitus, type 2) Status: Chronic Qualifiers: Diabetes mellitus termite control technician insulin use: with termite control technician use Diabetes mukul itus complication status: with unspecified complications (4) HTN (hypertension) Code(s): I10 - ESSENTIAL (PRIMARY) HYPERTENSION Status: Chronic Qualifiers: Hypertension type: essential hypertension Qualified Code(s): I10 - Essential (primary) hypertension (5) Obesity Code(s): E66.9 - OBESITY, UNSPECIFIED Status: Chronic Qualifiers: Obesity type: unspecified obesity type - Plan Plan: #Acute hypercapenic respiratory failure requiring mechanical ventilation 2/2 obesity hypoventilation syndrome Possible inciting event COPD exacerbation vs CAP. Trouble with extubation due to obesity hypoventilation syndrome. Pulm recommended tracheostomy. Performed 03/[address] Carmichael, as well as peg tube p lacement. Pt tolerated procedure well. Pt weaned off sedation 03/21. Pt not alert and not awake 03/21-03/22. Developed fever 03/21. Ordered blood ccx. added urine ccx and sputum ccx 03/22. Repeated COVID PCR 03/22 neg. continued somnolence 03/23. - Pulm consulted and management ventilator and resp concerns. appreciate recs. - tube feeds, tolerating - cefepime 03/15, trending procal, 0.8->1.2->0.6-> 0.39-> 0.28-> 0.22. Tmax 100 on 03/21, 102.2 on 03/22. ordered blood ccx, added urine ccx and covid swab. Cefepime discontinued 03/22 and antibiotic changed to merem due to possible nosicominal infection. - repeat CXR with increasing pleural effusion and bilateral infiltrates. IVF now on KVO with tube feeds - good urine output in past 24h # Bilateral pneumonia - nosocominal infection - on merem 03/22 #COPD - duonebs scheduled, dulera inhaler #DM2 - Glycemic control improving. Mod SSI, glargine increased to 40u BID. #Hyperkalemia, resolved - K 3.8 on 03/23. #Indeterminate troponin -trop 0.05 -Likely due to demand #Afib -Hx of afib s/p ablation -ekg: a fib with normal rate -continue home eliquis - home cardizem held due to when given dropped HR to 40's. - HR increasing, restarted regular cardizem 30 mg Q6H on 03/22. increased to 60 mg Q6H on 03/23 as HR improved but still tachycardic. #BPH -continue home meds #Chronic diastolic heart failure -hx obtained from prior admissions -continue home lasix BID #MANDA -uses CPAP at home Code: Full, per PCP: PROGRAM MANAGEMENT PROFESSIONAL IVF: SL (but combination of all drips ~70ml/hr) DVT Ppx: eliquis Lines: Left IJ Dispo: Tracheostomy with mechanical ventilation, appreciate pulm recs. Addendum - Attending - Attending Attestation Date/Time: 03/23/20 345 I personally evaluated the patient and discussed the management with Dr. Rodríguez. I agree with the History, Examination, Assessment and Plan documented above with any addition or exceptions noted below. will adjust insulin. Trach mgmt per pulmonology. On antibiotics.
[2020-03-23 07:14] LABS: Puncture Site LRA
[2020-03-23 07:15] LABS: ALV-art Gradient 173.925 mmHg (0-20)
--- NOTE | 2020-03-23 08:34 | RAD ---
XR Chest 1 View Portable History: Ventilated patient Comparison: Radiograph prior day Findings: Tracheostomy tube tip is similar location. Left IJ central venous catheter dislocation. No pneumothorax. Trace effusions. Heart size is enlarged. Pulmonary arteries are distended. Lung aeration is similar. Impression: Similar examination of the chest. Over the past week the lung aeration is improved.
[2020-03-23] MEDS: Insulin Glargine 45 UNITS in Pre-Filled Syringe 1 EACH SC SCH (09:34)
[2020-03-23] MEDS: Docusate Sodium 100 MG/10 ML UDCUP PO SCH ×2 (09:36→20:21)
[2020-03-23] MEDS: Polyethylene Glycol 3350 17 GM Packet PER TUBE SCH (09:36)
[2020-03-23] MEDS: Famotidine 20 MG TAB PER TUBE SCH ×2 (09:37→20:21)
[2020-03-23] MEDS: Digoxin 0.25 MG TAB PO SCH (09:37)
[2020-03-23] MEDS: Furosemide 40 MG TAB PO SCH ×2 (09:37→16:46)
[2020-03-23] MEDS: metFORMIN 500 MG TAB PO SCH ×2 (09:38→16:46)
[2020-03-23] MEDS: Apixaban 5 MG TAB PO SCH ×2 (09:38→20:21)
[2020-03-23] MEDS: Carvedilol 6.25 MG TAB PO SCH ×2 (09:39→20:21)
[2020-03-23] MEDS: Fluconazole In NaCl,Iso-Osm 200 MG in Premix Bag 1 BAG IVPB SCH (09:41)
[2020-03-23] MEDS: Tamsulosin HCl 0.4 MG CAP PO SCH (09:42)
--- NOTE | 2020-03-23 10:03 | EKG ---
Test Reason : Blood Pressure : / mmHG Vent. Rate : 080 BPM Atrial Rate : 357 BPM P-R Int : 000 ms QRS Dur : 080 ms QT Int : 344 ms P-R-T Axes : 000 104 -54 degrees QTc Int : 396 ms Atrial fibrillation Rightward axis Low voltage QRS Septal infarct , age undetermined Abnormal ECG Confirmed by EDMUNDO GARCIA, AMADO Mckeon ([id number]), managing editor JESUS BROOKS ([id number]) on 03/23/2020 10:03:16 AM Referred By: Confirmed By:AMADO WYATT MD
[2020-03-23] MEDS: Finasteride 5 MG TAB PO SCH (11:24)
--- NOTE | 2020-03-23 13:05 | PRG ---
DATE OF SERVICE: 03/23/2020 SUBJECTIVE: The patient remains on mechanical ventilation through a tracheostomy. He is off sedation, but I cannot get him to wake up and follow commands. OBJECTIVE: VITAL SIGNS: His temperature is 98.2, pulse 96, blood pressure 161/108. 24-hour intake 1881, output 3795. HEENT: Unremarkable. NECK: Trach in good position. LUNGS: Clear. CARDIAC: S1 and S2, regular. ABDOMEN: Obese, soft, nontender. EXTREMITIES: Edematous. LABORATORY DATA: White blood cell count 12.7, hematocrit 42.6, and platelet count 258. PH 7.46, pCO2 of 45, PO2 of 90, on SIMV rate 18, tidal volume 550, PEEP 5, pressure support 10, FiO2 of 45%. Sodium 144, potassium 3.8, chloride 100, CO2 of 31, BUN 34, creatinine 1.1, glucose 358. X-ray shows good tracheostomy position, fairly clear lung posey. ASSESSMENT: 1. Acute respiratory failure requiring mechanical ventilation and tracheostomy placement. 2. Pneumonia. 3. Repeat COVID test negative. 4. Morbid obesity. 5. Hyperglycemia with blood sugars out of control. PLAN: The patient is continuing IV antibiotic therapy. I will go ahead and increase his glargine insulin. He may end up needing to be on a drip. He does not appear to be on any steroid therapy that I can see on his MAR. Job ID: [id number]
[2020-03-23] MEDS: Insulin Glargine 50 UNITS in Pre-Filled Syringe SC SCH (21:36)
[2020-03-24] MEDS: HumaLOG 300 UNITS/3 ML VIAL SC PRN ×4 (04:05→20:49)
[2020-03-24] MEDS: Acetaminophen 650 MG/20.3 ML UDCUP PO PRN ×2 (04:25→18:07)
[2020-03-24 04:32] LABS: Anion Gap 16 mmol/L (10-20); BUN (Urea Nitrogen) 36 mg/dL (8.4-25.7); Calc. Creatinine Clearance 126 mL/min (70-130); Calcium 9.6 mg/dL (7.8-10.44); Carbon Dioxide 34 mmol/L (23-31); Chloride 97 mmol/L (98-107); Glucose 241 mg/dL (83-110); Potassium 3.5 mmol/L (3.5-5.1); Sodium 143 mmol/L (136-145)
[2020-03-24 04:54] LABS: Band 4 % (5-11); Hemoglobin 13.5 g/dL (14.0-18.0); Lymphocytes 8 % (21-51); MDiff Complete? YES; Mean Corpuscular HGB CONC 30.3 g/dL (32.0-36.0); Mean Corpuscular Hemoglobin 27.2 pg (27.0-31.0); Mean Corpuscular Volume 90.1 fL (78.0-98.0); Mean Platelet Volume 8.6 fL (7.4-10.4); Monocytes 7 % (0-10); Myelocyte 1 % (0-0); Neutrophil 80 % (42-75); Platelet Count 278 thou/uL (130-400); RBC Distribution Width 14.6 % (11.5-14.5); Red Blood Cell (RBC) Count 4.97 mill/uL (4.70-6.10); White Blood Cell (WBC) Count 13.9 thou/uL (4.8-10.8)
[2020-03-24] MEDS: Meropenem 2 GM, Admixture Fee 1 EACH in Sodium Chloride 0.9% 100 ML IVPB SCH ×3 (05:31→23:15)
[2020-03-24] MEDS: Nystatin Powder 15 GM BOT TOP PRN (05:31)
[2020-03-24] MEDS: Vancomycin HCl 1.25 GM in Sodium Chloride 0.9% 250 ML 250 ML IVPB SCH ×2 (06:38→20:56)
[2020-03-24 06:48] LABS: Actual Bicarbonate (HCO3a) 34.3 mEq/L (22-28); Base Excess (BEa) 8.7 mEq/L (-2.0 to +3.0); CO2 Tension 50.6 mmHg (35.0-45.0); Calcium, Ionized (arterial) 1.21 mmol/L (1.12-1.30); Carboxyhemoglobin (COHb) 1.4 gm% (0.0-3.0); Hemoglobin (Hb) 14.7 g/dL (14.0-18.0); O2 Tension (PaO2), arterial 64.6 mmHg (> 70.0); Potassium - ABG Lab 3.53 mmol/L (3.70-5.30); pH, Arterial 7.45 (7.35-7.45)
--- NOTE | 2020-03-24 06:59 | PDOC.FM ---
- Subjective Subjective: MAPs 90's, good urine output still not responding Tmax 102.2, no growth on ccx's. On merem wbc 13.9 off sedation trach on vent SIMV, peep 5, 35% FiO2 - Objective MAR Reviewed: Yes Vital Signs & Weight: Vital Signs (12 hours) Temp Pulse Resp BP Pulse Ox 03/24/20 06:39 83 131/81 03/24/20 06:35 83 17 97 03/24/20 06:00 22 H 03/24/20 04:25 100.5 F H 87 17 157/96 H 03/24/20 04:00 100.4 F H 21 H 03/24/20 02:54 100 167/101 H 03/24/20 02:53 76 29 H 99 03/24/20 02:00 22 H 03/24/20 01:00 21 H 03/24/20 00:48 100 139/83 03/24/20 00:00 100.8 F H 24 H 03/23/20 22:25 100 170/105 H 03/23/20 22:23 93 27 H 98 03/23/20 22:00 101.4 F H 88 22 H 154/87 H 03/23/20 21:08 102.2 F H 90 21 H 155/99 H 03/23/20 20:21 149/84 H 03/23/20 20:00 102.2 F H 21 H 98 03/23/20 19:31 88 149/84 H 03/23/20 19:29 89 21 H 98 Weight Admit Weight 147.998 kg Weight 136.4 kg Most Recent Monitor Data Heart Rate from ECG 90 NIBP 131/81 NIBP BP-Mean 97 Respiration from ECG 16 SpO2 97 I&O: 03/22/20 03/23/20 03/24/20 06:59 06:59 06:59 Intake Total 4338.9 1881 3220 Output Total 2045 3795 3050 Balance 2293.9 -1914 170 Result Diagrams: 03/24/20 03:45 03/24/20 03:45 Radiology Reviewed by me: Yes (B infiltrates ) Phys Exam - Physical Examination off sedation, does not respond or awaken to painful stimuli. HEENT: moist MMs, sclera anicteric Neck: supple coarse breathsounds with scattered crackles Cardiovascular: RRR, no significant murmur Gastrointestinal: soft, no distention, positive bowel sounds Musculoskeletal: pulses present off sedation and does not responds to painful stimuli. Skin: cap refill <2 seconds Deviation from normal: BLE chronic venous stasis dermatitis Dx/Plan (1) Obesity hypoventilation syndrome Code(s): E66.2 - MORBID (SEVERE) OBESITY WITH ALVEOLAR HYPOVENTILATION Status: Acute (2) Afib Code(s): I48.91 - UNSPECIFIED ATRIAL FIBRILLATION Status: Acute Qualifiers: Atrial fibrillation type: persistent (3) DMII (diabetes mellitus, type 2) Status: Chronic Qualifiers: Diabetes mellitus termite treater helper insulin use: with fci use Diabetes mellitus complication status: with unspecified complications (4) HTN (hypertension) Code(s): I10 - ESSENTIAL (PRIMARY) HYPERTENSION Status: Chronic Qualifiers: Hypertension type: essential hypertension Qualified Code(s): I10 - Ess ential (primary) hypertension (5) Obesity Code(s): E66.9 - OBESITY, UNSPECIFIED Status: Chronic Qualifiers: Obesity type: unspecified obesity type - Plan Plan: #Acute hypercapenic respiratory failure requiring mechanical ventilation 2/2 obesity hypoventilation syndrome Possible inciting event COPD exacerbation vs CAP. Trouble with extubation due to obesity hypoventilation syndrome. Pulm recommended tracheostomy. Performed 03/[address] Carmichael, as well as peg tube placement. Pt tolerated procedure well. Pt weaned off sedation 03/21. Pt not alert and not awake 03/21-03/22. Developed fever 03/21. Ordered blood ccx. added urine ccx and sputum ccx 03/22. Repeated COVID PCR 03/22 neg. continued somnolence 03/23. - Pulm consulted and management ventilator and resp concerns. appreciate recs. - tube feeds, tolerating - cefepime 03/15, trending procal, 0.8->1.2->0.6-> 0.39-> 0.28-> 0.22. Tmax 100 on 03/21, 102.2 on 03/22. ordered blood ccx, added urine ccx and covid swab. Cefepime discontinued 03/22 and antibiotic changed to merem due to possible nosicominal infection. Continues to fever 03/24, Tmax 102.2, on merem, no growth to date on ccx's. considering thrombosis. - repeat CXR with increasing pleural effusion and bilateral infiltrates. IVF now on KVO with tube feeds - good urine output in past 24h # Bilateral pneumonia - nosocominal infection - on merem 03/22 # Fever Unsure of source, blood, urine ccx's no growth to date, covid re-swab negative. - on merem and fluconazole - Ordered LE doppler to eval for thrombosis as possible cause of fever - if doppler neg will order brain CT w/o contrast #COPD - duonebs scheduled, dulera inhaler #DM2 - Glycemic control improving. Mod SSI, glargine increased to 40u BID. #Hyperkalemia, resolved - K 3.8 on 03/23. #Indeterminate troponin -trop 0.05 -Likely due to demand #Afib -Hx of afib s/p ablation -ekg: a fib with normal rate -continue home eliquis - home cardizem held due to when given dropped HR to 40's. - HR increasing, restarted regular cardizem 30 mg Q6H on 03/22. increased to 60 mg Q6H on 03/23 as HR improved. #BPH -continue home meds #Chronic diastolic heart failure -hx obtained from prior admissions -continue home lasix BID #MANDA -uses CPAP at home Code: Full, per PCP: MANAGER INTERFACE IVF: SL (but combination of all drips ~70ml/hr) DVT Ppx: eliquis Lines: Left IJ Dispo: Tracheostomy with mechanical ventilation, appreciate pulm recs. inpt in CCU Addendum - Attending - Attending Attestation Date/Time: 03/24/20 4270 I personally evaluated the patient and discussed the management with Dr. Rodríguez. I agree with the History, Examination, Assessment and Plan documented above with any addition or exceptions noted below. Pt's mentation has still not improved. He continues to spike fever. Cultures to date have been negative. Will begin to look for additional causes of fever. Continue broad spectrum antibiotics. Vent mgmt per pulm.
[2020-03-24] MEDS: Mometasone 100 MCG/Formoterol 5 MCG 120 PUFF INHALER INH SCH ×2 (07:25→18:36)
[2020-03-24 07:49] LABS: Puncture Site LRA
[2020-03-24] MEDS: metFORMIN 500 MG TAB PO SCH (08:00)
--- NOTE | 2020-03-24 09:07 | PRG ---
DATE OF SERVICE: 03/24/2020 SUBJECTIVE: This patient remains on mechanical ventilation through a tracheostomy. He is more or less the same as he was yesterday. He is more sedated than you would think he would be and he is not receiving anything at this time. OBJECTIVE: VITAL SIGNS: Temperature is 100.5. It has been as high as 102.2, pulse 90, blood pressure 131/81, O2 saturation 97%. 24-hour intake 3220, output 3050. HEENT: Unremarkable. NECK: No adenopathy or JVD. Trach in good position. LUNGS: Clear. CARDIAC: S1 and S2. Regular. ABDOMEN: Soft. EXTREMITIES: No change in his edema. His chest x-ray shows bilateral infiltrative changes. Trach in good position. LABORATORY DATA: White blood cell count 13.9, hematocrit 44.7, and platelet count 278. Sodium 143, potassium 3.5, chloride 97, CO2 of 34, BUN 36, creatinine 1.0, glucose 241. ASSESSMENT: 1. Acute respiratory failure requiring mechanical ventilation and tracheostomy placement. 2. Encephalopathy. 3. Pneumonia. 4. Fever. PLAN: So far, cultures from two days ago were negative. The patient remains on meropenem, fluconazole, and vancomycin. At the current time, we are trying to slowly wean him from mechanical ventilation. Job ID: [id number]
--- NOTE | 2020-03-24 09:10 | RAD ---
XR Chest 1 View Portable History: Ventilated patient Comparison: Radiograph prior day Findings: Tracheostomy tube tip at the clavicular level. The left IJ approach central venous catheter is a similar location. Heart size is enlarged. No pneumothorax. No worsening lung aeration. Relative to 1 week prior lung aeration is slightly improved. Impression: Similar to yesterday although improved lung aeration from one week prior.
[2020-03-24] MEDS: Docusate Sodium 100 MG/10 ML UDCUP PO SCH ×2 (09:19→20:47)
[2020-03-24] MEDS: Metoclopramide HCl 10 MG/2 ML VIAL IVP PRN ×2 (09:19→18:08)
[2020-03-24] MEDS: Fluconazole In NaCl,Iso-Osm 200 MG in Premix Bag 1 BAG IVPB SCH (09:19)
[2020-03-24] MEDS: Polyethylene Glycol 3350 17 GM Packet PER TUBE SCH ×2 (09:20→09:31)
[2020-03-24] MEDS: Digoxin 0.25 MG TAB PO SCH (09:20)
[2020-03-24] MEDS: Famotidine 20 MG TAB PER TUBE SCH ×2 (09:20→20:46)
[2020-03-24] MEDS: metFORMIN 500 MG TAB PER TUBE SCH ×2 (09:21→18:11)
[2020-03-24] MEDS: Tamsulosin HCl 0.4 MG CAP PO SCH (09:21)
[2020-03-24] MEDS: Insulin Glargine 50 UNITS in Pre-Filled Syringe SC SCH (09:22)
[2020-03-24] MEDS: Carvedilol 6.25 MG TAB PO SCH ×2 (09:22→20:46)
[2020-03-24] MEDS: Finasteride 5 MG TAB PO SCH ×2 (09:22→09:30)
[2020-03-24] MEDS: Apixaban 5 MG TAB PO SCH ×2 (09:22→20:47)
[2020-03-24] MEDS: Furosemide 40 MG TAB PO SCH ×2 (09:30→14:18)
[2020-03-24] MEDS ORDERED: Insulin Glargine 55 UNITS in Pre-Filled Syringe 1 EACH SC SCH (10:15)
--- NOTE | 2020-03-24 11:37 | ULT ---
US Venous Doppler Bilat History: Immobility. Pain and edema Comparison: None. Findings: Real-time grayscale, color and spectral analysis of the bilateral lower extremity venous sy stem was performed. The common femoral, femoral, proximal portions greater saphenous and deep femoral veins as well as the popliteal and posterior tibial veins were interrogated. Normal flow, augmentation and compression. Impression: No deep venous thrombosis.
--- NOTE | 2020-03-24 17:10 | CT ---
CT BRAIN WITHOUT CONTRAST: HISTORY:Altered mental status COMPARISON:01/20/2017 FINDINGS: There are foci of decreased attenuation in the periventricular white matter, consistent with chronic small vessel ischemic disease. No evidence of acute infarct, hemorrhage, midline shift or abnormal extra-axial fluid collections is seen. The ventricular size is appropriate and the basilar cisterns are patent. The bony calvarium is intact. The mastoid air cells are well aerated. There is a mucous retention cyst versus polyp in the right ma xillary sinus. IMPRESSION: No CT evidence of acute intracranial process.
[2020-03-24] MEDS: Insulin Glargine 55 UNITS in Pre-Filled Syringe 1 EACH SC SCH (20:51)
[2020-03-25] MEDS: HumaLOG 300 UNITS/3 ML VIAL SC PRN ×2 (04:25→17:05)
[2020-03-25 06:03] LABS: Anion Gap 14 mmol/L (10-20); BUN (Urea Nitrogen) 41 mg/dL (8.4-25.7); Calc. Creatinine Clearance 123 mL/min (70-130); Calcium 9.5 mg/dL (7.8-10.44); Carbon Dioxide 35 mmol/L (23-31); Chloride 98 mmol/L (98-107); Glucose 174 mg/dL (83-110); Potassium 3.3 mmol/L (3.5-5.1); Sodium 144 mmol/L (136-145)
[2020-03-25] MEDS: Vancomycin HCl 1.25 GM in Sodium Chloride 0.9% 250 ML 250 ML IVPB SCH ×2 (06:16→17:01)
[2020-03-25] MEDS: Mometasone 100 MCG/Formoterol 5 MCG 120 PUFF INHALER INH SCH ×2 (06:47→18:28)
--- NOTE | 2020-03-25 06:50 | PDOC.FM ---
- Subjective Subjective: sputum ccx grew staph aureus pt briefly opened eyes and then went back to being unresponsive again. glucose more controlled, and at goal of 140-180 good urine output 3050 last 24 hrs on vent wit htrach: SIMV, peep 5, FiO2 35%, O2 sats 92% MAPs 100's low K, electrolyte replacement protocol started - Objective MAR Reviewed: Yes Vital Signs & Weight: Vital Signs (12 hours) Temp Pulse Resp BP Pulse Ox 03/25/20 06:47 73 156/89 H 03/25/20 06:43 65 14 99 03/25/20 06:00 20 03/25/20 04:00 99.7 F H 03/25/20 02:48 72 03/25/20 02:47 92 L 03/25/20 02:00 20 03/25/20 01:00 20 03/25/20 00:00 100.2 F H 03/24/20 23:08 69 136/77 03/24/20 23:07 97 03/24/20 22:00 20 03/24/20 20:46 156/72 H 03/24/20 20:00 102.0 F H 96 Weight Admit Weight 147.998 kg Weight 137.2 kg Most Recent Monitor Data Heart Rate from ECG 67 NIBP 147/83 NIBP BP-Mean 104 Respiration from ECG 23 SpO2 96 I&O: 03/23/20 03/24/20 03/25/20 06:59 06:59 06:59 Intake Total 1881 3320 2378 Output Total 3795 3050 1395 Balance -1914 270 983 Result Diagrams: 03/25/20 04:45 03/25/20 04:45 Phys Exam - Physical Examination no longer sedated, opened eyes briefly spontaneously, non-responsive. HEENT: moist MMs Neck: supple diffuse rhonchi. Cardiovascular: RRR, no significant murmur Gastrointestinal: soft, no distention, positive bowel sounds Musculoskeletal: pulses present non-responsive, briefly opened eyes Skin: cap refill <2 seconds Dx/Plan (1) Obesity hypoventilation syndrome Code(s): E66.2 - MORBID (SEVERE) OBESITY WITH ALVEOLAR HYPOVENTILATION Status: Acute (2) Afib Code(s): I48.91 - UNSPECIFIED ATRIAL FIBRILLATION Status: Acute Qualifiers: Atrial fibrillation type: persistent (3) DMII (diabetes mellitus, type 2) Status: Chronic Qualifiers: Diabetes mellitus adjunct faculty for medical terminology insulin use: with adjunct faculty for medical terminology use Diabetes mick litus complication status: with unspecified complications (4) HTN (hypertension) Code(s): I10 - ESSENTIAL (PRIMARY) HYPERTENSION Status: Chronic Qualifiers: Hypertension type: essential hypertension Qualified Code(s): I10 - Essential (primary) hypertension (5) Obesity Code(s): E66.9 - OBESITY, UNSPECIFIED Status: Chronic Qualifiers: Obesity type: unspecified obesity type - Plan Plan: Respiratory: #Acute hypercapenic respiratory failure requiring mechanical ventilation 2/2 obesity hypoventilation syndrome Possible inciting event COPD exacerbation vs CAP. Trouble with extubation due to obesity hypoventilation syndrome. Pulm recommended tracheostomy. Performed 03/[address] Carmichael, as well as peg tube placement. Pt tolerated procedure well. Pt weaned off sedation 03/21. Pt not alert and not awake 03/21-03/22. Developed fever 03/21. Ordered blood ccx- no growth. added urine ccx and sputum ccx 03/22, sputum gres staph aureus.. Repeated COVID PCR 03/22 neg. continued unresponsive 03/23-. - Pulm consulted and management ventilator and resp concerns. appreciate recs. - tube feeds, tolerating - cefepime 03/15, trending procal, 0.8->1.2->0.6-> 0.39-> 0.28-> 0.22. Tmax 100 on 03/21, 102.2 on 03/22. Cefepime discontinued 03/22 and antibiotic changed to merem due to possible nosicominal infection. Continues to fever 03/24, Tmax 102.2, on merem Vanc added, staph aureus on sputum ccx, blood and urine ccx neg. BLE doppler neg. 03/25 Tmax 102.0. - repeat CXR with increasing pleural effusion and bilateral infiltrates. IVF now on KVO with tube feeds - good urine output in past 24h # Bilateral pneumonia, staph aureus - nosocominal infection, staph aureus on sputum ccx. - on merem 03/22 and vanc 03/23. - pulm consulted and primary team following much appreciated recommendations. # Fever Unsure of source, blood, urine ccx's no growth to date, covid re-swab negative. - on merem, vanc and fluconazole - Ordered LE doppler to eval for thrombosis as possible cause of fever, neg for DVT - brain CT no acute intracranial process #COPD - duonebs scheduled, dulera inhaler #MANDA -uses CPAP at home, on trach and vent @ [facility] Heme: #sepsis- on vanc and merem, Tmax 102.0 overnight. #leukocytosis #Fever -BLE doppler neg for DVT - Brain CT neg for acute intracrainal process - sputum ccx grew staph aureus, will continue antibiotics #Hypokalemia, resolved - K 3.8 on 03/23. 3.3 on 03/25, electrolyte replacement protocol per CCU. Neuro #Encephalopathy - unknown cause, likely metabolic - glucose more controlled and not in DKA. - Brain CT neg for acute intracrainial process. - will consider perfusion scan of brain if still not alert soon. Cardiac: #Indeterminate troponin -trop 0.05 -Likely due to demand #Afib -Hx of afib s/p ablation -ekg: a fib with normal rate -continue home eliquis - home cardizem held due to when given dropped HR to 40's. - HR increasing, restarted regular cardizem 30 mg Q6H on 03/22. increased to 60 mg Q6H on 03/23 as HR improved. #Chronic diastolic heart failure -hx obtained from prior admissions -continue home lasix BID Chronic problems: #BPH -continue home meds #DM2 - Glycemic control improving. Mod SSI, glargine increased to 55u BID. and added PO 1000 mg metformin BID per tube. Code: Full, per PCP: VP DIRECTOR OF CREATIVE STRATEGY IVF: SL (but combination of all drips ~70ml/hr) DVT Ppx: eliquis Lines: Left IJ Dispo: Tracheostomy with mechanical ventilation, appreciate pulm recs. inpt in CCU Addendum - Attending - Attending Attestation Date/Time: 03/25/20 2762 I personally evaluated the patient and discussed the management with Dr. Rodríguez I agree with the History, Examination, Assessment and Plan documented above with any addition or exceptions noted below - Patient intubated; beginning to respond more. Tm102.0. VSS A/P: 1) Acute hypoxic resp failure secondary to COPD exacerbation and pneumonia - s/p trach; continue to wean as tolerated as per pulmonary. 2) DM- stable; continue current meds. 3) HTN- stable; continue current meds
[2020-03-25 06:52] LABS: Actual Bicarbonate (HCO3a) 35.4 mEq/L (22-28); CO2 Tension 49.9 mmHg (35.0-45.0); Calcium, Ionized (arterial) 1.18 mmol/L (1.12-1.30); Carboxyhemoglobin (COHb) 1.3 gm% (0.0-3.0); Hemoglobin (Hb) 14.4 g/dL (14.0-18.0); O2 Tension (PaO2), arterial 75.6 mmHg (> 70.0); Potassium - ABG Lab 3.28 mmol/L (3.70-5.30); pH, Arterial 7.47 (7.35-7.45)
[2020-03-25 06:53] LABS: Band 7 % (5-11); Eosinophils 1 % (0-10); Hemoglobin 13.6 g/dL (14.0-18.0); Lymphocytes 17 % (21-51); MDiff Complete? YES; Mean Corpuscular HGB CONC 30.6 g/dL (32.0-36.0); Mean Corpuscular Hemoglobin 27.7 pg (27.0-31.0); Mean Corpuscular Volume 90.4 fL (78.0-98.0); Mean Platelet Volume 9.1 fL (7.4-10.4); Monocytes 8 % (0-10); Neutrophil 67 % (42-75); Platelet Count 272 thou/uL (130-400); RBC Distribution Width 14.5 % (11.5-14.5); Red Blood Cell (RBC) Count 4.91 mill/uL (4.70-6.10)
[2020-03-25 06:53] LABS: ALV-art Gradient 111.575 mmHg (0-20); Puncture Site LRA
[2020-03-25] MEDS ORDERED: Electrolyte Replacement Protocol 1 EACH FS SCH (07:00)
[2020-03-25] MEDS ORDERED: Potassium Chloride 20 MEQ TAB PO SCH (08:00)
[2020-03-25] MEDS: Meropenem 2 GM, Admixture Fee 1 EACH in Sodium Chloride 0.9% 100 ML IVPB SCH ×3 (08:06→22:49)
[2020-03-25] MEDS: Furosemide 40 MG TAB PO SCH ×2 (08:07→16:26)
[2020-03-25] MEDS: Famotidine 20 MG TAB PER TUBE SCH ×2 (08:07→21:10)
[2020-03-25] MEDS: Digoxin 0.25 MG TAB PO SCH (08:07)
[2020-03-25] MEDS: metFORMIN 500 MG TAB PER TUBE SCH ×2 (08:10→16:25)
[2020-03-25] MEDS: Carvedilol 6.25 MG TAB PO SCH ×2 (08:10→21:10)
[2020-03-25] MEDS: Tamsulosin HCl 0.4 MG CAP PO SCH (08:10)
[2020-03-25] MEDS: Apixaban 5 MG TAB PO SCH ×2 (08:10→21:11)
[2020-03-25] MEDS: Docusate Sodium 100 MG/10 ML UDCUP PO SCH ×2 (08:11→21:12)
[2020-03-25] MEDS: Insulin Glargine 55 UNITS in Pre-Filled Syringe 1 EACH SC SCH ×2 (09:44→21:12)
[2020-03-25] MEDS: Fluconazole In NaCl,Iso-Osm 200 MG in Premix Bag 1 BAG IVPB SCH (09:44)
[2020-03-25 11:57] VITALS: BMI 45.8
--- NOTE | 2020-03-25 17:23 | PRG ---
DATE OF SERVICE: 03/25/2020 SUBJECTIVE: Rafael Kilgore remains hemodynamically stable. Still encephalopathic. He is afebrile. He yesterday had a temperature of 102. OBJECTIVE: VITAL SIGNS: Blood pressure 156/89, respiratory rates in the teens. LUNGS: Distant. HEART: Regular rhythm. ABDOMEN: Soft. An endotracheal tube aspirate from the 15th grew MRSA. Chest x-ray has actually improved compared to a week ago, so it is hard to know if the staff is just a tracheobronchial colonizer or a pathogen. We will continue with vancomycin and meropenem for now. I doubt he has a fungal process that is disseminated. We are not making a lot of process weaning from mechanical ventilation. An LTAC evaluation would be appropriate. Job ID: [id number]
[2020-03-25] MEDS: Vancomycin 1 GM in Premix Bag 1 BAG IVPB SCH (19:10)
[2020-03-25] MEDS: Acetaminophen 650 MG/20.3 ML UDCUP PO PRN (19:59)
[2020-03-26] MEDS: Acetaminophen 650 MG/20.3 ML UDCUP PO PRN ×2 (01:51→20:17)
[2020-03-26 05:27] LABS: Band 8 % (5-11); Eosinophils 3 % (0-10); Hemoglobin 13.5 g/dL (14.0-18.0); Lymphocytes 10 % (21-51); MDiff Complete? YES; Mean Corpuscular HGB CONC 30.9 g/dL (32.0-36.0); Mean Corpuscular Hemoglobin 27.9 pg (27.0-31.0); Mean Corpuscular Volume 90.1 fL (78.0-98.0); Mean Platelet Volume 8.4 fL (7.4-10.4); Monocytes 2 % (0-10); Neutrophil 77 % (42-75); Platelet Count 290 thou/uL (130-400); RBC Distribution Width 14.5 % (11.5-14.5); Red Blood Cell (RBC) Count 4.85 mill/uL (4.70-6.10); White Blood Cell (WBC) Count 13.6 thou/uL (4.8-10.8)
[2020-03-26] MEDS: Meropenem 2 GM, Admixture Fee 1 EACH in Sodium Chloride 0.9% 100 ML IVPB SCH ×3 (05:27→22:25)
[2020-03-26] MEDS: HumaLOG 300 UNITS/3 ML VIAL SC PRN (05:28)
[2020-03-26 05:30] LABS: Anion Gap 18 mmol/L (10-20); BUN (Urea Nitrogen) 45 mg/dL (8.4-25.7); Calc. Creatinine Clearance 113 mL/min (70-130); Calcium 9.6 mg/dL (7.8-10.44); Carbon Dioxide 33 mmol/L (23-31); Glucose 183 mg/dL (83-110); Potassium 3.6 mmol/L (3.5-5.1)
[2020-03-26] MEDS: Vancomycin HCl 1.25 GM in Sodium Chloride 0.9% 250 ML 250 ML IVPB SCH ×2 (05:47→17:50)
[2020-03-26 06:04] LABS: Chloride 99 mmol/L (98-107); Sodium 146 mmol/L (136-145)
--- NOTE | 2020-03-26 06:48 | PDOC.FM ---
- Subjective Subjective: Pt is awake this morning with eyes open and following, follows very simple commands T max 101.2 overnight, MRSA sputum ccx and on vanc + merem and fluconazole. Vanc trough 18 last night. good urine output 2951 over last 24 hours will bee good for LTAC placement, CM consulted - Objective Vital Signs & Weight: Vital Signs (12 hours) Temp Pulse Resp BP Pulse Ox 03/26/20 06:00 12 03/26/20 05:00 98.7 F 03/26/20 04:00 11 L 03/26/20 03:00 100.6 F H 03/26/20 02:48 74 03/26/20 02:00 11 L 03/26/20 01:55 101.1 F H 03/26/20 01:51 101.1 F H 03/26/20 01:00 11 L 03/26/20 00:00 100.1 F H 11 L 03/25/20 23:03 79 157/107 H 03/25/20 22:00 23 H 03/25/20 21:10 162/86 H 03/25/20 20:29 99.7 F H 03/25/20 20:00 17 99 03/25/20 19:59 101.2 F H Weight Admit Weight 147.998 kg Weight 135.851 kg Most Recent Monitor Data Heart Rate from ECG 70 NIBP 141/108 NIBP BP-Mean 119 Respiration from ECG 11 SpO2 99 I&O: 03/24/20 03/25/20 03/26/20 06:59 06:59 06:59 Intake Total 3320 2378 3326 Output Total 3050 1395 2950 Balance 270 983 376 Result Diagrams: 03/27/20 05:31 03/27/20 05:31 Phys Exam - Physical Examination awake, off sedation HEENT: moist MMs Neck: supple, full ROM coarse breath sounds, no rhoinchi, improved from previous exams Cardiovascular: RRR distant heart sounds Gastrointestinal: no distention, positive bowel sounds Musculoskeletal: pulses present Neurological: moves all 4 limbs awake, follows very simple commands. Deviation from normal: awake Skin: cap refill <2 seconds Dx/Plan (1) Obesity hypoventilation syndrome Code(s): E66.2 - MORBID (SEVERE) OBESITY WITH ALVEOLAR HYPOVENTILATION Status: Acute (2) Afib Code(s): I48.91 - UNSPECIFIED ATRIAL FIBRILLATION Status: Acute Qualifiers: Atrial fibrillation type: persistent (3) DMII (diabetes mellitus, type 2) Status: Chronic Qualifiers: Diabetes mellitus group home insulin use: with group home use Diabetes mellitus complication status: with unspecified complications (4) HTN (hypertension) Code(s): I10 - ESSENTIAL (PRIMARY) HYPERTENSION Status: Chronic Qualifiers: Hypertension type: essential hypertension Qualified Code(s): I10 - Essential (primary) hypertension (5) Obesity Code(s): E66.9 - OBESITY, UNSPECIFIED Status: Chronic Qualifiers: Obesity type: unspecified obesity type - Plan Plan: Respiratory: #Acute hypercapenic respiratory failure requiring mechanical ventilation 2/2 obesity hypoventilation syndrome Possible inciting event COPD exacerbation vs CAP. Trouble with extubation due to obesity hypoventilation syndrome. Pulm recommended tracheostomy. Performed 03/[address] Carmichael, as well as peg tube placement. Pt tolerated procedure well. Pt weaned off sedation 03/21. Pt not alert and not awake 03/21-03/24. Developed fever 03/21. Ordered blood ccx- no growth. added urine ccx and sputum ccx 03/22, sputum ccx MRSA. Repeated COVID PCR 03/22 neg. continued unresponsive 03/23-. Started to wake up more on 03/25 and continued slight improvement 03/26 of mentation. - Pulm consulted and management ventilator and resp concerns. appreciate recs. - tube feeds, tolerating - cefepime 03/15, trending procal, 0.8->1.2->0.6-> 0.39-> 0.28-> 0.22. Tmax 100 on 03/21, 102.2 on 03/22. Cefepime discontinued 03/22 and antibiotic changed to merem and Vanc due to possible nosicominal infection. Also added Fluconazole. Continues to fever 03/24, Tmax 102.2, on merem Vanc continued, MRSA on sputum ccx, blood and urine ccx neg. BLE doppler neg. 03/25 Tmax 102.0. 03/26 Tmax 101.2F. - repeat CXR with increasing pleural effusion and bilateral infiltrates. IVF now on KVO with tube feeds - good urine output # Bilateral pneumonia, MRSA on sputum ccx, improving - nosocominal infection, MRSA on sputum ccx. - on merem 03/22 and vanc 03/23. - pulm consulted and primary team following much appreciated recommendations. # Fever Unsure of source, blood, urine ccx's no growth to date, covid re-swab negative. Likely colonization f MRSA in ent, however may be true nosocomial infection. - on merem, vanc and fluconazole - Ordered LE doppler to eval for thrombosis as possible cause of fever, neg for DVT - brain CT no acute intracranial process #COPD - duonebs scheduled, dulera inhaler #MANDA -uses CPAP at home, on trach and vent @ [facility] Heme: #sepsis- on vanc and merem, Tmax 102.0 overnight. improved #leukocytosis #Fever -BLE doppler neg for DVT - Brain CT neg for acute intracrainal process - sputum ccx grew MRSA, will continue antibiotics #Hypokalemia, resolved - K 3.8 on 03/23. 3.3 on 03/25, electrolyte replacement protocol per CCU. Neuro #Encephalopathy - unknown cause, likely metabolic - glucose more controlled and not in DKA. - Brain CT neg for acute intracrainial process. - improving as omre awake on 03/26. Cardiac: #Indeterminate troponin -trop 0.05 -Likely due to demand #Afib -Hx of afib s/p ablation -ekg: a fib with normal rate -continue home eliquis - home cardizem held due to when given dropped HR to 40's. - HR increasing, restarted regular cardizem 30 mg Q6H on 03/22. increased to 60 mg Q6H on 03/23 as HR improved. #Chronic diastolic heart failure -hx obtained from prior admissions -continue home lasix BID Chronic problems: #BPH -continue home meds #DM2 - Glycemic control improving. Mod SSI, glargine increased to 55u BID. and added PO 1000 mg metformin BID per tube. 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 inpt in CCU Addendum - Attending - Attending Attestation Date/Time: 03/27/20 5609 I personally evaluated the patient and discussed the management with Dr. Rodríguez I agree with the History, Examination, Assessment and Plan documented above with any addition or exceptions noted below- Responding to commands. On CPAP via trach. Tm 101.2 VSS. A/P: 1) Acute hypercapneic resp failure secondary to obesity hypoventilation syndrome - continue vent as per pulmonary. Wean as tolerated. 2) DM- BG stable; continue to monitor and adjust insulin as needed. 3) Afib- rate controlled; continue current meds. 4) Persistent fever- Cultures negative to date; continue to monitor
[2020-03-26] MEDS: Mometasone 100 MCG/Formoterol 5 MCG 120 PUFF INHALER INH SCH ×2 (07:13→18:43)
[2020-03-26] MEDS: metFORMIN 500 MG TAB PER TUBE SCH ×2 (08:39→17:36)
[2020-03-26] MEDS: Finasteride 5 MG TAB PO SCH (08:40)
[2020-03-26] MEDS: Carvedilol 6.25 MG TAB PO SCH ×2 (08:40→20:22)
[2020-03-26] MEDS: Furosemide 40 MG TAB PO SCH ×2 (08:41→13:23)
[2020-03-26] MEDS: Digoxin 0.25 MG TAB PO SCH (08:41)
[2020-03-26] MEDS: Apixaban 5 MG TAB PO SCH ×2 (08:41→20:22)
[2020-03-26] MEDS: Famotidine 20 MG TAB PER TUBE SCH ×2 (08:41→20:22)
[2020-03-26] MEDS: Tamsulosin HCl 0.4 MG CAP PO SCH (08:41)
[2020-03-26] MEDS: Polyethylene Glycol 3350 17 GM Packet PER TUBE SCH (08:42)
[2020-03-26] MEDS: Docusate Sodium 100 MG/10 ML UDCUP PO SCH ×2 (08:43→20:23)
[2020-03-26] MEDS: Insulin Glargine 55 UNITS in Pre-Filled Syringe 1 EACH SC SCH ×2 (10:08→22:04)
[2020-03-26] MEDS: Fluconazole In NaCl,Iso-Osm 200 MG in Premix Bag 1 BAG IVPB SCH (11:51)
--- NOTE | 2020-03-26 15:59 | PRG ---
DATE OF SERVICE: 03/26/2020 SUBJECTIVE: Rafael Kilgore is making progress with slow decrease in ventilatory support. OBJECTIVE: VITAL SIGNS: Heart rate is 80, blood pressure 164/99, respiratory rate in the teens, FiO2 is at 30. LUNGS: Remarkable for equal breath sounds. HEART: Regular rhythm. ABDOMEN: Soft. EXTREMITIES: With stasis changes. LABORATORY DATA: White count 13.6, hemoglobin 13.5, platelets 290. Sodium 146, potassium 3.6, chloride 99, bicarb 33, BUN 45, creatinine 1.13. IMPRESSION: 1. Respiratory failure. 2. Obesity hypoventilation syndrome. 3. Deconditioning. 4. MRSA isolated from his tracheobronchial secretions. He still has a temperature spikes today. We will reculture. We will need at some point be transferred to a long-term acute care. Currently, the does not understand why, so an effort will be made to explain this to her. He has been here in the hospital almost two weeks now. Job ID: [id number]
[2020-03-26] MEDS ORDERED: Sterile Water 10 ML VIAL IVP SCH (18:00)
[2020-03-26] MEDS ORDERED: Activase 2 MG VIAL CATH SCH (18:00)
[2020-03-26] MEDS: Nystatin Powder 15 GM BOT TOP PRN (18:02)
[2020-03-27] MEDS: Meropenem 2 GM, Admixture Fee 1 EACH in Sodium Chloride 0.9% 100 ML IVPB SCH ×3 (06:01→22:25)
[2020-03-27 06:11] LABS: Vancomycin, Trough 19.6 ug/mL
[2020-03-27 06:14] LABS: Anion Gap 14 mmol/L (10-20); BUN (Urea Nitrogen) 43 mg/dL (8.4-25.7); Calc. Creatinine Clearance 125 mL/min (70-130); Calcium 9.8 mg/dL (7.8-10.44); Carbon Dioxide 36 mmol/L (23-31); Chloride 101 mmol/L (98-107); Glucose 137 mg/dL (83-110); Potassium 3.4 mmol/L (3.5-5.1); Sodium 148 mmol/L (136-145)
[2020-03-27] MEDS: Vancomycin HCl 1.25 GM in Sodium Chloride 0.9% 250 ML 250 ML IVPB SCH ×2 (06:32→18:11)
[2020-03-27] MEDS ORDERED: Potassium Chloride 20 MEQ TAB PO SCH (06:45)
--- NOTE | 2020-03-27 07:02 | PDOC.FM ---
- Subjective Subjective: Pt's PRG tube was leaking overnight, Dr. Carmichael at bedside this AM to reposition. pending LTAC placement more awake and alert today - Objective MAR Reviewed: Yes Vital Signs & Weight: Vital Signs (12 hours) Temp Pulse Resp BP Pulse Ox 03/27/20 06:00 15 03/27/20 04:00 16 03/27/20 03:21 74 03/27/20 03:18 94 L 03/27/20 02:00 19 03/27/20 00:00 98.8 F 17 03/26/20 23:06 69 119/80 97 03/26/20 22:00 100.4 F H 15 03/26/20 20:47 100.6 F H 03/26/20 20:22 141/80 H 03/26/20 20:17 101.1 F H 03/26/20 20:00 16 97 Weight Admit Weight 147.998 kg Weight 138.255 kg Most Recent Monitor Data Heart Rate from ECG 80 NIBP 144/87 NIBP BP-Mean 106 Respiration from ECG 22 SpO2 96 I&O: 03/26/20 03/27/20 03/28/20 06:59 06:59 06:59 Intake Total 2615 1994 Output Total 2570 2650 Balance 45 -655 Result Diagrams: 03/27/20 05:31 03/27/20 05:31 Phys Exam - Physical Examination awake, alert and following commands. HEENT: moist MMs Neck: supple coarse breath sounds with few scattered rhonchi Cardiovascular: RRR Gastrointestinal: soft, no distention, positive bowel sounds Musculoskeletal: pulses present Neurological: moves all 4 limbs responds to commands Skin: cap refill <2 seconds Deviation from normal: stage II pressure ulcer L buttock Dx/Plan (1) Obesity hypoventilation syndrome Code(s): E66.2 - MORBID (SEVERE) OBESITY WITH ALVEOLAR HYPOVENTILATION Status: Acute (2) Afib Code(s): I48.91 - UNSPECIFIED ATRIAL FIBRILLATION Status: Acute Qualifiers: Atrial fibrillation type: persistent (3) DMII (diabetes mellitus, type 2) Status: Chronic Qualifiers: Diabetes mellitus detention insulin use: with detention use Diabetes mellitus complication status: with unspecified complications (4) HTN (hypertension) Code(s): I10 - ESSENTIAL (PRIMARY) HYPERTENSION Status: Chronic Qualifiers: Hypertension type: essential hypertension Qualified Code(s): I10 - Essential (primary) hypertension (5) Obesity Code(s): E66.9 - OBESITY, UNSPECIFIED Status: Chronic Qualifiers: Obesity type: unspecified obesity type - Plan Plan: Respiratory: #Acute hypercapenic respiratory failure requiring mechanical ventilation 2/2 obesity hypoventilation syndrome Possible inciting event COPD exacerbation vs CAP. Trouble with extubation due to obesity hypoventilation syndrome. Pulm r ecommended tracheostomy. Performed 03/[address] Carmichael, as well as peg tube placement. Pt tolerated procedure well. Pt weaned off sedation 03/21. Pt not alert and not awake 03/21-03/24. Developed fever 03/21. Ordered blood ccx- no growth. added urine ccx and sputum ccx 03/22, sputum ccx MRSA. Repeated COVID PCR 03/22 neg. continued unresponsive 03/23-. Started to wake up more on 03/25 and continued slight improvement 03/26 of mentation. - Pulm consulted and management ventilator and resp concerns. appreciate recs. - tube feeds, tolerating - cefepime 03/15, trending procal, 0.8->1.2->0.6-> 0.39-> 0.28-> 0.22. Tmax 100 on 03/21, 102.2 on 03/22. Cefepime discontinued 03/22 and antibiotic changed to merem and Vanc due to possible nosicominal infection. Also added Fluconazole. Continues to fever 03/24, Tmax 102.2, on merem + Vanc continued, MRSA on sputum ccx, blood and urine ccx neg. BLE doppler neg. 03/25 Tmax 102.0. 03/26 Tmax 101.2F. continued to fever 03/26-03/27, resent blood ccx's - repeat CXR with increasing pleural effusion and bilateral infiltrates. IVF now on KVO with tube feeds - good urine output - on CPAP with trach 03/25-03/26 # Bilateral pneumonia, MRSA on sputum ccx, improving - nosocominal infection, MRSA on sputum ccx. - on merem 03/22 and vanc 03/23. - pulm consulted and primary team following much appreciated recommendations. - blood ccx repeated on 03/[address] Andrews # Fever Unsure of source, blood, urine ccx's no growth to date, covid re-swab negative. Likely colonization of MRSA in ent, however may be true nosocomial infection. - on merem, vanc and fluconazole - Ordered LE doppler to eval for thrombosis as possible cause of fever, neg for DVT - brain CT no acute intracranial process - blood ccx resent 03/26 #COPD - duonebs scheduled, dulera inhaler #MANDA -uses CPAP at home, on trach and vent @ [facility] Heme: #sepsis- on vanc and merem. improved #leukocytosis #Fever -BLE doppler neg for DVT - Brain CT neg for acute intracrainal process - sputum ccx grew MRSA, will continue antibiotics #Hypokalemia - K 3.8 on 03/23. 3.3 on 03/25, electrolyte replacement protocol per CCU. Neuro #Encephalopathy - unknown cause, likely metabolic - glucose more controlled and not in DKA. - Brain CT neg for acute intracrainial process. - improving as more awake on 03/26. Cardiac: #Indeterminate troponin -trop 0.05 -Likely due to demand #Afib -Hx of afib s/p ablation -ekg: a fib with normal rate -continue home eliquis - home cardizem held due to when given dropped HR to 40's. - HR increasing, restarted regular cardizem 30 mg Q6H on 03/22. increased to 60 mg Q6H on 03/23 as HR improved. #Chronic diastolic heart failure -hx obtained from prior admissions -continue home lasix BID Skin: stage II pressure ulcer L buttocks -wound care consulted - waffle mattress recommended and frequent turning. Chronic problems: #BPH -continue home meds #DM2 - Glycemic control improving. Mod SSI, glargine increased to 55u BID. and added PO 1000 mg metformin BID per tube. Code: Full, per PCP: [facility] IVF: SL (but combination of all drips ~70ml/hr) DVT Ppx: eliquis Lines: Left IJ Dispo: Tracheostomy with mechanical ventilation, appreciate pulm recs. inpt in CCU. pending LTAC placement. Addendum - Attending - Attending Attestation Date/Time: 03/27/20 1113 I personally evaluated the patient and discussed the management with Dr. Rodríguez I agree with the History, Examination, Assessment and Plan documented above with any addition or exceptions noted below - On CPAP; responding to commands. Tm 101.1 VSS. A/P: 1) Acute hypercapneic resp failure secondary to obesity hypoventilation syndome- Plan for trial of trach collar as per pulmonary; appreciate assistance. 2) DM- BG stable; continue to monitor. 3) Hypernatremia- will increase free water flushes with tube feedings. 4) Persistent fever- repeat blood cultures drawn; continue current abx.
[2020-03-27] MEDS: Mometasone 100 MCG/Formoterol 5 MCG 120 PUFF INHALER INH SCH ×2 (07:06→18:49)
[2020-03-27 07:12] LABS: Hemoglobin 14.3 g/dL (14.0-18.0); Mean Corpuscular HGB CONC 31.1 g/dL (32.0-36.0); Mean Corpuscular Hemoglobin 28.6 pg (27.0-31.0); Mean Corpuscular Volume 91.8 fL (78.0-98.0); Mean Platelet Volume 9.4 fL (7.4-10.4); Platelet Count 283 thou/uL (130-400); RBC Distribution Width 14.7 % (11.5-14.5); Red Blood Cell (RBC) Count 5.01 mill/uL (4.70-6.10)
[2020-03-27 07:58] LABS: Band 6 % (5-11); Lymphocytes 5 % (21-51); MDiff Complete? YES; Monocytes 7 % (0-10); Neutrophil 78 % (42-75); RBC Morphology Normal; Reactive Lymphocytes 2 % (0-10)
[2020-03-27] MEDS: Fluconazole In NaCl,Iso-Osm 200 MG in Premix Bag 1 BAG IVPB SCH (08:57)
[2020-03-27] MEDS: Potassium Chloride 20 MEQ in Premix Bag 1 BAG IVPB SCH ×2 (08:58→10:01)
[2020-03-27] MEDS: Carvedilol 6.25 MG TAB PO SCH ×2 (08:59→20:56)
[2020-03-27] MEDS: Famotidine 20 MG TAB PER TUBE SCH ×2 (08:59→20:57)
[2020-03-27] MEDS: metFORMIN 500 MG TAB PER TUBE SCH ×2 (08:59→18:10)
[2020-03-27] MEDS: Finasteride 5 MG TAB PO SCH (08:59)
[2020-03-27] MEDS ORDERED: Dextrose 5% in Water 1,000 ML IV SCH (09:00)
[2020-03-27] MEDS: Furosemide 40 MG TAB PO SCH ×2 (09:00→15:25)
[2020-03-27] MEDS: Digoxin 0.25 MG TAB PO SCH (09:00)
[2020-03-27] MEDS: Tamsulosin HCl 0.4 MG CAP PO SCH (09:00)
[2020-03-27] MEDS: Apixaban 5 MG TAB PO SCH ×2 (09:00→20:57)
[2020-03-27] MEDS: Docusate Sodium 100 MG/10 ML UDCUP PO SCH ×2 (09:02→20:57)
[2020-03-27] MEDS: Polyethylene Glycol 3350 17 GM Packet PER TUBE SCH (09:02)
[2020-03-27] MEDS: Insulin Glargine 55 UNITS in Pre-Filled Syringe 1 EACH SC SCH ×2 (09:14→21:16)
--- NOTE | 2020-03-27 09:55 | PRG ---
DATE OF SERVICE: 03/27/2020 SUBJECTIVE: I was called to see patient for drainage around the PEG tube site. The bumper tape applied to the PEG tube and a PEG tubing is 2 to 3 cm outside the securing plate to the skin. The feeding tube seems to be loose. With this change in positioning, I would recommend a CAT scan and contrast per G tube to verify placement. The patient's vital signs are normal and his abdomen seems to be soft. OBJECTIVE: VITAL SIGNS: Temperature 97.9 degrees, blood pressure 159/85. LUNGS: Clear to auscultation. CARDIAC: Regular rate and rhythm without murmur or gallop. ABDOMEN: Soft plus bowel sounds. G tube as described. LABORATORY DATA: White count 16, differential unremarkable; hemoglobin 14. Basic metabolic profile is baseline normal. BUN 43, creatinine 1.1, sodium 138. ASSESSMENT AND PLAN: CT scan of abdomen rule out dislodged G-tube. I think that things are right, but based on physical findings, I would want to be sure. Job ID: [id number]
--- NOTE | 2020-03-27 12:47 | CT ---
EXAM: CT Abdomen Pelvis WO Con PROVIDED CLINICAL HISTORY: Evidence for G-tube complication COMPARISON: None FINDINGS: The visualized lung bases are free of significant opacity. A gastrostomy tube is noted, the terminal aspects of which are within the subcutaneous adipose layer. Contrast administered through the gastrostomy tube is entirely intraluminal, with a well-defined gaseous tract demonstrated from the terminal aspects of the G-tube to the anterior wall of the stomac h. The solid abdominal organs are suboptimally evaluated in the absence of IV contrast material but demo nstrate an unremarkable unenhanced CT appearance. There is fluid density within the colon, which can be seen in the setting of a diarrheal illness. Pos toperative changes are demonstrated involving the right colon. There is no evidence for bowel obstruction, free intraperitoneal fluid or free intraperitoneal air. Atherosclerotic vascular calcifications are demonstrated. The osseous structures demonstrate no concerning lytic or blastic lesions. IMPRESSION: Gastrostomy tube placement as described. Findings discussed with Dr. Carmichael 12:41 PM 03/27/2020.
[2020-03-27] MEDS ORDERED: Iopamidol 370 76% 50 ML VIAL FS ONE (14:16)
--- NOTE | 2020-03-27 15:33 | SPC ---
PROCEDURE: GASTROSTOMY TUBE CHG w/REV PROVIDED CLINICAL HISTORY: Gastrostomy tube was inadvertently removed. Replacement of gastrostomy tube was requested. COMPARISON: None TECHNIQUE: After informed consent was obtained, patient was placed on the angiography table in the supine positi on. The previous gastrostomy tube site in the left upper quadrant was meticulously prepped and draped in usual sterile fashion. A 5 Spanish Berenstein catheter was manipulated into the stomach. Con trast injection demonstrates rugal folds in the stomach. The catheter was exchanged over a 0.035 inch Amplatz guidewire for a new 20 Spanish gastrostomy tube. Approximately 17 mL of sterile water was instilled into the distal balloon on the gastrostomy tube. Contrast injection confirms contrast within the stomach. There is contrast opacification of a prominent tract of the gastrostomy tube from the stomach to the skin surface. Gastrostomy tube was flushed. Dry sterile dressing was placed at catheter entry site. Patient tolerat ed the procedure well and without immediate complication. Fluoroscopy: Time-1.7 minutes Dose-24,170 mGy centimeter squared. IMPRESSION: 1. Technically successful replacement of 20 Spanish gastrostomy tube with 17 mL of sterile water place d within the distal gastrostomy tube balloon. Injection of contrast demonstrates placement of the tube within the stomach without extravasation of contrast outside the confines of the stomach. Daniel acosta, there is opacification of the gastrostomy tube tract from the stomach to the skin surface.
[2020-03-27 17:25] LABS: Potassium 3.6 mmol/L (3.5-5.1)
--- NOTE | 2020-03-27 17:45 | PRG ---
DATE OF SERVICE: 03/27/2020 SUBJECTIVE: Mr. Rafael Kilgore hemodynamically has been stable. OBJECTIVE: VITAL SIGNS: Blood pressure 124/73, respiratory rates in the teens, oximetry is 92. Apparently, his PEG has been somehow displaced. LUNGS: Remarkable for coarse and equal breath sounds. HEART: Regular rate and rhythm. ABDOMEN: Soft. IMAGING: Abdominopelvic CT showed the tip of the gastrostomy tube has an anterior abdominal fat. Attempts were underway earlier today while I went about the room to replace his PEG with Radiology's assistance. LABORATORY DATA: White count 16, hemoglobin 14.3, platelets 283. Sodium , potassium 3.4, chloride 101, bicarb 36, BUN 43, creatinine 1.01. IMPRESSION: Respiratory failure secondary to obesity, deconditioning, pneumonia. He has diabetes. His echocardiogram shows normal systolic function, but a dilated left atrium, making me wonder about diastolic dysfunction. Overall, other than the PEG issues, he is relatively stable and can go to a long-term acute care once we are sure that there are no acute issues with his abdomen. Job ID: [id number]
[2020-03-28] MEDS: Nystatin Powder 15 GM BOT TOP PRN (05:00)
[2020-03-28 05:24] LABS: Anion Gap 14 mmol/L (10-20); BUN (Urea Nitrogen) 43 mg/dL (8.4-25.7); Calc. Creatinine Clearance 125 mL/min (70-130); Calcium 9.8 mg/dL (7.8-10.44); Carbon Dioxide 37 mmol/L (23-31); Chloride 98 mmol/L (98-107); Glucose 143 mg/dL (83-110); Potassium 3.6 mmol/L (3.5-5.1); Sodium 145 mmol/L (136-145)
[2020-03-28 05:55] LABS: Band 13 % (5-11); Eosinophils 2 % (0-10); Hemoglobin 13.7 g/dL (14.0-18.0); Lymphocytes 7 % (21-51); MDiff Complete? YES; Mean Corpuscular HGB CONC 29.7 g/dL (32.0-36.0); Mean Corpuscular Hemoglobin 26.9 pg (27.0-31.0); Mean Corpuscular Volume 90.4 fL (78.0-98.0); Mean Platelet Volume 8.8 fL (7.4-10.4); Monocytes 9 % (0-10); Neutrophil 69 % (42-75); Platelet Count 319 thou/uL (130-400); RBC Distribution Width 14.8 % (11.5-14.5); RBC Morphology Normal; Red Blood Cell (RBC) Count 5.09 mill/uL (4.70-6.10); White Blood Cell (WBC) Count 14.6 thou/uL (4.8-10.8)
[2020-03-28] MEDS: Meropenem 2 GM, Admixture Fee 1 EACH in Sodium Chloride 0.9% 100 ML IVPB SCH ×2 (06:12→14:18)
[2020-03-28] MEDS: Mometasone 100 MCG/Formoterol 5 MCG 120 PUFF INHALER INH SCH (06:17)
--- NOTE | 2020-03-28 06:45 | PDOC.FM ---
- Subjective Subjective: T max overnight 100.6, resent ccx's good urine output on CPAP this morning Peg tube problems fixed yesterday vanc trough 19.6 and appropriate Na 145 this morning with increase in free water flushed to 40 ml form 30 ml Q4H yesterday is place don wait list for LTAC - Objective MAR Reviewed: Yes Vital Signs & Weight: Vital Signs (12 hours) Temp Pulse Resp BP Pulse Ox 03/28/20 06:17 82 21 H 96 03/28/20 06:15 76 119/65 03/28/20 06:14 89 21 H 95 03/28/20 03:00 99.1 F 03/28/20 02:27 73 21 H 94 L 03/28/20 02:00 17 03/28/20 00:00 100.1 F H 03/27/20 22:58 88 28 H 94 L 03/27/20 22:06 85 03/27/20 22:00 100.4 F H 03/27/20 20:56 158/89 H 03/27/20 20:00 100.6 F H 94 L 03/27/20 18:49 86 25 H 90 L Weight Admit Weight 147.998 kg Weight 137.166 kg Most Recent Monitor Data Heart Rate from ECG 85 NIBP 140/69 NIBP BP-Mean 92 Respiration from ECG 31 SpO2 97 I&O: 03/26/20 03/27/20 03/28/20 06:59 06:59 06:59 Intake Total 2615 1995 3574 Output Total 2570 2650 1665 Balance 45 -576 1909 Result Diagrams: 03/28/20 04:15 03/28/20 04:15 Phys Exam - Physical Examination awake and responds to commands HEENT: moist MMs Neck: supple Respiratory: no wheezing coarse breath sounds Cardiovascular: RRR, no rub Gastrointestinal: soft, no distention, positive bowel sounds Musculoskeletal: pulses present, edema present Neurological: moves all 4 limbs Deviation from normal: L buttock ulcer Dx/Plan (1) Obesity hypoventilation syndrome Code(s): E66.2 - MORBID (SEVERE) OBESITY WITH ALVEOLAR HYPOVENTILATION Status: Acute (2) Afib Code(s): I48.91 - UNSPECIFIED ATRIAL FIBRILLATION Status: Acute Qualifiers: Atrial fibrillation type: persistent (3) DMII (diabetes mellitus, type 2) Status: Chronic Qualifiers: Diabetes mellitus custodial insulin use: with custodial use Diabetes mellitus complication status: with unspecified complications (4) HTN (hypertension) Code(s): I10 - ESSENTIAL (PRIMARY) HYPERTENSION Status: Chronic Qualifiers: Hypertension type: essential hypertension Qualified Code(s): I10 - Essential (primary) hypertension (5) Obesity Code(s): E66.9 - OBESITY, UNSPECIFIED Status: Chronic Qualifiers: Obesity type: unspecified obesity type - Plan Plan: Respiratory: #Acute hypercapenic respiratory failure requiring mechanical ventilation 2/2 obesity hypoventilation syndrome Possible inciting event COPD exacerbation vs CAP. Trouble with extubation due to obesity hypoventilation syndrome. Pulm recommended tracheostomy. Performed 03/[address] Carmichael, as well as peg tube placement. Pt tolerated procedure well. Pt weaned off sedation 03/21. Pt not alert and not awake 03/21-03/24. Developed fever 03/21. Ordered blood ccx- no growth. added urine ccx and sputum ccx 03/22, sputum ccx MRSA. Repeated COVID PCR 03/22 neg. continued unresponsive 03/23-. Started to wake up more on 03/25 and continued slight improvement 03/26 of mentation. - Pulm consulted and management ventilator and resp concerns. appreciate recs. - tube feeds, tolerating - cefepime 03/15, trending procal, 0.8->1.2->0.6-> 0.39-> 0.28-> 0.22. Tmax 100 on 03/21, 102.2 on 03/22. Cefepime discontinued 03/22 and antibiotic changed to merem and Vanc due to possible nosicominal infection. Also added Fluconazole. Continues to fever 03/24, Tmax 102.2, on merem + Vanc continued, MRSA on sputum ccx, blood and urine ccx neg. BLE doppler neg. 03/25 Tmax 102.0. 03/26 Tmax 101.2F. continued to fever 03/26-03/27, resent blood ccx's - repeat CXR with increasing pleural effusion and bilateral infiltrates. IVF now on KVO with tube feeds - good urine output - on CPAP with trach 03/25-03/26. was on [facility] durin gthe day 03/27 due to tiring out, but back on CPAP 03/28. - goal is trach collar 03/28. # Bilateral pneumonia, MRSA on sputum ccx, improving - nosocominal infection, MRSA on sputum ccx. - on merem 03/22 and vanc 03/23. - pulm consulted and primary team following much appreciated recommendations. - blood ccx repeated on 03/[address] Andrews. alvarado cultures on 03/28 due to continued fevers # Fever Unsure of source, blood, urine ccx's no growth to date, covid re-swab negative. Likely colonization of MRSA in trach, however may be true nosocomial infection. - on merem, vanc and fluconazole - Ordered LE doppler to eval for thrombosis as possible cause of fever, neg for DVT - brain CT no acute intracranial process - blood ccx resent 03/26, alvarado-ccx on 03/28 #COPD - duonebs scheduled, dulera inhaler #MANDA -uses CPAP at home, on trach and vent @ [facility] Heme: #sepsis- on vanc and merem. improved #leukocytosis #Fever -BLE doppler neg for DVT - Brain CT neg for acute intracrainal process - sputum ccx grew MRSA, will continue antibiotics #Hypokalemia - K 3.8 on 03/23. 3.3 on 03/25, electrolyte replacement protocol per CCU. Neuro #Encephalopathy - unknown cause, likely metabolic - glucose more controlled and not in DKA. - Brain CT neg for acute intracrainial process. - improving as more awake on 03/26- Cardiac: #Indeterminate troponin -trop 0.05 -Likely due to demand #Afib -Hx of afib s/p ablation -ekg: a fib with normal rate -continue home eliquis - home cardizem held due to when given dropped HR to 40's. - HR increasing, restarted regular cardizem 30 mg Q6H on 03/22. increased to 60 mg Q6H on 03/23 as HR improved. #Chronic diastolic heart failure -hx obtained from prior admissions -continue home lasix BID - echo: EF 50-55%, mild . poor endocardial definition limits study. Skin: stage II pressure ulcer L buttocks -wound care consulted - waffle mattress recommended and frequent turning. Chronic problems: #BPH -continue home meds #DM2 - Glycemic control improving. Mod SSI, glargine increased to 55u BID. and added PO 1000 mg metformin BID per tube. Code: Full, per PCP: [facility] [employer] [facility] [employer] IVF: SL (but combination of all drips ~70ml/hr) DVT Ppx: eliquis Lines: Left IJ Dispo: Tracheostomy with CPAP, goal to get trach collar, appreciate pulm recs. inpt in CCU. pending LTAC placement. Addendum - Attending - Attending Attestation Date/Time: 03/28/20 1120 I personally evaluated the patient and discussed the management with Dr. Rodríguez I agree with the History, Examination, Assessment and Plan documented above with any addition or exceptions noted below - On CPAP; awake/alert; following commands. Tm 100.6 VSS. A/P: 1) Acute hypercapneic resp failure secondary to obesity-hypoventilation syndrome - continue CPAP and trach collar trials as per pulmonary, 2) PEG replaced and in position; continue tube feeds. 3) Decon ditioning- continue PT; awaiting LTAC placement
[2020-03-28] MEDS: Vancomycin HCl 1.25 GM in Sodium Chloride 0.9% 250 ML 250 ML IVPB SCH (06:50)
--- NOTE | 2020-03-28 08:11 | PRG ---
DATE OF SERVICE: 03/28/2020 Rafael Kilgore was leaking around his PEG tube yesterday. I evaluated and had suspicion that it had migrated out. CT scan revealed indeed the PEG tube was in the abdominal wall. Fortunately, there was no evidence of peritonitis. The patient's Interventional Radiology placed a new gastrostomy tube. This morning, his tracheostomy site looks good. Abdomen is soft and nontender. The PEG tube is working well. At this point, I will see him as needed. Please call if necessary. Job ID: [id number]
[2020-03-28 08:53] VITALS: TEMP 98.7
--- NOTE | 2020-03-28 09:04 | PRG ---
DATE OF SERVICE: 03/28/2020 35 minutes of critical care time. SUBJECTIVE: The patient remains on a ventilator, CPAP pressure support mode, doing very well. He is awake, follow commands. OBJECTIVE: VITAL SIGNS: Temperature 99.1, pulse 81, blood pressure 148/65, O2 saturation 95%. 24-hour intake 3714, output 1980. HEENT: Unremarkable. NECK: No adenopathy or JVD. LUNGS: Clear. CARDIAC: S1 and S2. Regular. ABDOMEN: Soft. EXTREMITIES: Edematous. LABORATORY DATA: White cell count 14.6, hematocrit 46, platelet count 319. Sodium 145, potassium 3.6, chloride 90, CO2 of 37, BUN 43, creatinine 1.0, glucose 143. ASSESSMENT: 1. Status post tracheostomy for prolonged respiratory failure related to obesity hypoventilation syndrome. 2. Status post displacement of gastrostomy tube. PLAN: 1. Trach collar trials as tolerated. 2. PEG tube has been replaced by Interventional Radiology. Job ID: [id number]
[2020-03-28] MEDS: Carvedilol 6.25 MG TAB PO SCH (09:15)
[2020-03-28] MEDS: Tamsulosin HCl 0.4 MG CAP PO SCH (09:16)
[2020-03-28] MEDS: Furosemide 40 MG TAB PO SCH ×2 (09:16→14:17)
[2020-03-28] MEDS: metFORMIN 500 MG TAB PER TUBE SCH (09:16)
[2020-03-28] MEDS: Digoxin 0.25 MG TAB PO SCH (09:16)
[2020-03-28] MEDS: Apixaban 5 MG TAB PO SCH (09:16)
[2020-03-28] MEDS: Famotidine 20 MG TAB PER TUBE SCH (09:16)
[2020-03-28] MEDS: Fluconazole In NaCl,Iso-Osm 200 MG in Premix Bag 1 BAG IVPB SCH (09:17)
[2020-03-28] MEDS: Docusate Sodium 100 MG/10 ML UDCUP PO SCH (09:20)
[2020-03-28] MEDS: Polyethylene Glycol 3350 17 GM Packet PER TUBE SCH (09:20)
[2020-03-28] MEDS: Finasteride 5 MG TAB PO SCH (09:20)
[2020-03-28] MEDS: Insulin Glargine 55 UNITS in Pre-Filled Syringe 1 EACH SC SCH (09:34)
[2020-03-28 16:33] VITALS: BP 128/57
--- NOTE | 2020-03-29 08:19 | DIS ---
DATE OF ADMISSION: 03/14/2020 DATE OF DISCHARGE: 03/28/2020 RESIDENT: Ana Rodríguez DO ADMITTING ATTENDING: Carolina Horner MD DISCHARGE ATTENDING: Carolina Horner MD CONSULTS: General Surgery, Dr. Carmichael; Pulmonology, Dr. Andrews; Case Management; Dietitian; Physical Therapy and Occupational Therapy. DIAGNOSES: 1. Acute hypercapnic respiratory failure requiring mechanical ventilation secondary to obesity hypoventilation syndrome with inciting event of chronic obstructive pulmonary disease and community-acquired pneumonia. 2. Bilateral pneumonia, methicillin-resistant Staphylococcus aureus on sputum culture. 3. Fever. 4. Chronic obstructive pulmonary disease. 5. Obstructive sleep apnea. 6. Sepsis. 7. Leukocytosis. 8. Encephalopathy. 9. Hypokalemia. 10. Indeterminate troponins, improved. 11. Atrial fibrillation. 12. Chronic diastolic heart failure. 13. Stage II pressure ulcer of the left buttock. 14. BPH. 15. Type 2 diabetes mellitus, insulin dependent. DISCHARGE MEDICATIONS: 1. Eliquis 5 mg p.o. b.i.d. 2. Tylenol 650 mg per tube q.6 hours p.r.n. 3. Coreg 12.5 mg per tube b.i.d. 4. Digoxin 0.2 mg per tube q.a.m. 5. Diltiazem 60 mg p.o. q.6 hours. 6. Docusate 100 mg per tube b.i.d. 7. Pepcid 20 mg per tube q.12 hours. 8. Proscar 5 mg per tube daily. 9. Lasix 40 mg per tube 9 a.m. and 1400. 10. Lantus 55 units subcutaneous b.i.d. 11. DuoNeb q.4 hours. 12. Symbicort inhaler or Dulera b.i.d. 13. Nystatin powder 1 g topical b.i.d. 14. MiraLAX 17 g per tube daily. 15. Tamsulosin 0.4 mg per tube daily. 16. Vancomycin and meropenem. 17. Metformin 1000 mg per tube b.i.d. HISTORY OF PRESENT ILLNESS/HOSPITAL COURSE: Mr. Kilgore is a 74-year-old gentleman who came into the emergency department, requiring intubation for acute hypercapnic respiratory failure secondary to COPD exacerbation and pneumonia. He was difficult to extubate after being treated with antibiotics, and Dr. Andrews had discussions with the and they wished to treat further with a trach placement. The patient underwent tracheostomy and PEG tube by Dr. Carmichael on 03/20 and at this time, he remained on mechanical ventilation. A couple days after this, his sedation was decreased and turned off. The patient continued to be encephalopathic and was not waking up for a couple of days. However, he did show improvement slowly and started to wake up and respond to commands very well, especially on 03/28 was the best mental status that he has had. The patient has had continued fevers. He was on cefepime from 03/15 to 03/22. The patient received azithromycin and Rocephin and Decadron on 03/14. The patient was on vancomycin from 03/14 to 03/15 and the patient continued to have fever, was placed back on vancomycin on 03/22 and Merrem on 03/22. Blood cultures, urine cultures, and sputum cultures were drawn at this time. Sputum culture grew out MRSA. This was thought to either be a colonization of the trach tube or a nosocomial infection. Regardless, the antibiotics were maintained and the patient's temperature max has downtrended; however, he has continued to have fever. Blood cultures were retaken on 03/26 and urine cultures, blood cultures, and sputum cultures were retaken on 03/28. The patient has continued to improve and mechanical ventilation has been turned to CPAP since 03/27, requiring minimal mechanical ventilation on 03/27 and full CPAP on 03/28. The patient's PEG tube had some trouble with leaking and was replaced on 03/28. PROCEDURES: Intubation on 03/14. Left IJ central line on 03/14. Tracheostomy and PEG tube on 03/20. Revision of PEG tube on 03/28. The patient will be going to LTAC facility and was accepted on 03/28. DISPOSITION: Stable and improved with a trach collar. DISCHARGE INSTRUCTIONS: 1. Location: To LTAC and [facility] in [place]. 2. Diet: Tube feeds. 3. Activity: Per Physical Therapy and Occupational Therapy. 4. Followup: Follow up with primary care physician in 7 days after LTAC and with [facility]. Job ID: [id number]
== END 2020-03-28 15:31 | DRG 4 ==
LOC: ERS 20:40 → ERHOLD 23:00 → IMCU/EMU 03-15 13:42
PROVIDERS: ADMIT Family Medicine; ATTEND Family Medicine
PROC: 5A1955Z Respiratory Ventilation, Greater than 96 Consecutive Hours (ICD-10-PCS; 2020-03-14)
PROC: 02HV33Z Insertion of Infusion Device into Superior Vena Cava, Percutaneous Approach (ICD-10-PCS; 2020-03-14)
PROC: 0B110F4 Bypass Trachea to Cutaneous with Tracheostomy Device, Open Approach (ICD-10-PCS; principal; 2020-03-20)
PROC: 0DH63UZ Insertion of Feeding Device into Stomach, Percutaneous Approach (ICD-10-PCS; 2020-03-20)
PROC: 3E03317 Introduction of Other Thrombolytic into Peripheral Vein, Percutaneous Approach (ICD-10-PCS; 2020-03-26)
PROC: 0DW6XUZ Revision of Feeding Device in Stomach, External Approach (ICD-10-PCS; 2020-03-28)
PROC: 5A09357 Assistance with Respiratory Ventilation, Less than 24 Consecutive Hours, Continuous Positive Airway Pressure (ICD-10-PCS; 2020-03-28)
DX: A41.9 Sepsis, unspecified organism (principal); R40.20 Unspecified coma; J96.01 Acute respiratory failure with hypoxia; J96.02 Acute respiratory failure with hypercapnia; J15.212 Pneumonia due to Methicillin resistant Staphylococcus aureus; J44.0 Chronic obstructive pulmonary disease with (acute) lower respiratory infection; I50.32 Chronic diastolic (congestive) heart failure; J44.1 Chronic obstructive pulmonary disease with (acute) exacerbation; E66.2 Morbid (severe) obesity with alveolar hypoventilation; G93.40 Encephalopathy, unspecified; E87.0 Hyperosmolality and hypernatremia; Z68.42 Body mass index [BMI] 45.0-49.9, adult; E87.4 Mixed disorder of acid-base balance; I48.19 Other persistent atrial fibrillation; Z20.822 Contact with and (suspected) exposure to COVID-19; I11.0 Hypertensive heart disease with heart failure; E87.5 Hyperkalemia; N40.0 Benign prostatic hyperplasia without lower urinary tract symptoms; D64.9 Anemia, unspecified; E11.65 Type 2 diabetes mellitus with hyperglycemia; E87.6 Hypokalemia; R79.89 Other specified abnormal findings of blood chemistry; L89.322 Pressure ulcer of left buttock, stage 2; K94.29 Other complications of gastrostomy; Y84.8 Other medical procedures as the cause of abnormal reaction of the patient, or of later complication, without mention of misadventure at the time of the procedure; Z79.01 Long term (current) use of anticoagulants; Z79.4 Long term (current) use of insulin; Z79.51 Long term (current) use of inhaled steroids; Z79.52 Long term (current) use of systemic steroids; Z79.899 Other long term (current) drug therapy; Z90.49 Acquired absence of other specified parts of digestive tract; Z87.891 Personal history of nicotine dependence; Z88.8 Allergy status to other drugs, medicaments and biological substances; Y95 Nosocomial condition
CPT/HCPCS: 0240U; 36415; 36416; 36556; 36600; 43763; 51702; 70450; 71045; 71275; 74176; 80048; 80053; 80202; 81003; 81015; 82010; 82553; 82805; 83036; 83605; 83880; 84145; 84443; 84484; 85007; 85025; 85027; 85610; 85730; 87040; 87070; 87077; 87086; 87186; 87205; 87449; 87899; 93005; 93306; 93970; 94002; 94003; 94640; 94760; 96361; 96365; 96366; 96367; 96375; 96376; J0456; J0692; J0696; J1100; J1450; J1650; J1815; J1940; J2060; J2185; J2270; J2704; J2765; J2997; J3010; J3370; J3480; J3490; J7030; J7050; J7620; Q9967; S0020; S0028; U0002

== ENCOUNTER 2023-10-19 16:38 | Inpatient (IN) | payer MEDICARE ==
[~2023-10-19 16:38] MED LIST changes: -Iopamidol-370 76% 500 ML 1 ML ONE; +Iopamidol-370 76% 500 ML MDV (1 ML CHARGE) ONE
[2023-10-19 17:54] LABS: #Basophils 0.05 10x3/uL (0.0-0.2); %Basophils 0.6 % (0.0-1.0); %Eosinophils 1.5 % (0.0-10.0); %Lymphocytes 9.9 % (21.0-51.0); %Monocytes 7.3 % (0.0-10.0); %Neutrophils 80.2 % (42.0-75.0); Hematocrit 44.4 % (42.0-52.0); Hemoglobin 13.2 g/dL (14.0-18.0); Mean Corpuscular HGB CONC 29.7 g/dL (32.0-36.0); Mean Corpuscular Hemoglobin 28.8 pg (27.0-31.0); Mean Corpuscular Volume 96.7 fL (78.0-98.0); Mean Platelet Volume 9.4 fL (7.4-10.4); Platelet Count 273 10x3/uL (130-400); RBC Distribution Width 16.3 % (11.5-14.5); Red Blood Cell (RBC) Count 4.59 mill/uL (4.70-6.10)
[2023-10-19 18:08] LABS: Digoxin Less than 0.19 ng/mL (0.8-2.0)
[2023-10-19 18:09] LABS: ALT (SGPT) 13 U/L (8-55); AST (SGOT) 11 U/L (5-34); Albumin 3.3 g/dL (3.4-4.8); Alkaline Phosphatase 79 U/L (40-110); Anion Gap 11 mmol/L (10-20); BUN (Urea Nitrogen) 22 mg/dL (8.4-25.7); Bilirubin, Total 0.7 mg/dL (0.2-1.2); Calc. Creatinine Clearance 0 mL/min (70-130); Calcium 9.2 mg/dL (7.8-10.44); Carbon Dioxide 28 mmol/L (23-31); Chloride 107 mmol/L (98-107); Estimated GFR 78; Globulin 3.1 g/dL (2.4-3.5); Glucose 231 mg/dL (83-110); Potassium 4.4 mmol/L (3.5-5.1); Protein, Total 6.4 g/dL (5.8-8.1); Sodium 142 mmol/L (136-145)
[2023-10-19 18:12] LABS: Troponin I 0.068 ng/mL (< 0.028)
[2023-10-19 18:29] LABS: Actual Bicarbonate (HCO3v) 27.3 mEq/L (22-28); Base Excess 0.5 mEq/L (-2.0 to +3.0); Calcium, Ionized (venous) 1.18 mmol/L (1.16-1.32); Chloride (VBG) 103 mmol/L (98-106); Hematocrit-VBG 43 % (42.0-52.0); Hemoglobin (Hb) 14.6 g/dL (12.6-17.4); Potassium (VBG) 4.33 mmol/L (3.70-5.30); Sodium 142 mmol/L (133-146); pH (venous) 7.337 (7.32-7.43)
[2023-10-19] MEDS ORDERED: Furosemide 40 MG (4 mL) VIAL ONE (19:37)
[2023-10-19] MEDS ORDERED: Aspirin Chewable 81 MG TAB ONE (19:37)
[2023-10-19 22:11] LABS: Troponin I 0.083 ng/mL (< 0.028)
[2023-10-19] MEDS ORDERED: Ondansetron ODT 4 MG TAB PO PRN (23:07)
[2023-10-19] MEDS ORDERED: Dextrose 50% Abboject 50 ML SYRINGE SLOW IVP PRN (23:07)
[2023-10-19] MEDS ORDERED: Acetaminophen 325 MG TAB PO PRN (23:07)
[2023-10-19] MEDS ORDERED: Ondansetron PF 4 MG/2 ML Vial IVP PRN (23:07)
[2023-10-19] MEDS ORDERED: Calcium Carbonate 500 MG ChewTAB PO PRN (23:07)
[2023-10-19] MEDS ORDERED: Senokot S 8.6-50 MG TAB PO PRN (23:07)
[2023-10-19] MEDS ORDERED: Dextrose 5% in Water 1,000 ML IV PRN (23:07)
[2023-10-19] MEDS ORDERED: Acetaminophen 650 MG Suppository PR PRN (23:07)
[2023-10-19] MEDS ORDERED: Glucagon 1 MG/ML KIT IM PRN (23:07)
[2023-10-20] MEDS: Piperacillin/Tazobactam 3.375 GM in Sodium Chloride 0.9% 100 ML IVPB SCH ×2 (00:47→06:24)
[2023-10-20 01:54] LABS: Troponin I 0.071 ng/mL (< 0.028)
[2023-10-20 04:38] LABS: #Basophils 0.03 10x3/uL (0.0-0.2); %Basophils 0.4 % (0.0-1.0); %Eosinophils 1.9 % (0.0-10.0); %Lymphocytes 13.1 % (21.0-51.0); %Monocytes 8.6 % (0.0-10.0); %Neutrophils 75.6 % (42.0-75.0); Hematocrit 46.5 % (42.0-52.0); Hemoglobin 13.6 g/dL (14.0-18.0); Mean Corpuscular HGB CONC 29.2 g/dL (32.0-36.0); Mean Corpuscular Hemoglobin 28.3 pg (27.0-31.0); Mean Corpuscular Volume 96.7 fL (78.0-98.0); Mean Platelet Volume 9.2 fL (7.4-10.4); Platelet Count 262 10x3/uL (130-400); RBC Distribution Width 16.1 % (11.5-14.5); Red Blood Cell (RBC) Count 4.81 mill/uL (4.70-6.10)
[2023-10-20 05:08] LABS: Anion Gap 13 mmol/L (10-20); BUN (Urea Nitrogen) 21 mg/dL (8.4-25.7); Calc. Creatinine Clearance 111 mL/min (70-130); Calcium 8.9 mg/dL (7.8-10.44); Carbon Dioxide 28 mmol/L (23-31); Chloride 108 mmol/L (98-107); Estimated GFR 82; Glucose 135 mg/dL (83-110); Potassium 4.5 mmol/L (3.5-5.1); Sodium 144 mmol/L (136-145)
[2023-10-20] MEDS: Furosemide 40 MG (4 mL) VIAL SLOW IVP SCH (06:24)
[2023-10-20] MEDS: Vancomycin (BATCH) 2.5 GM in Premix 1 BAG IVPB SCH (06:24)
[2023-10-20] MEDS: metFORMIN 500 MG TAB PO SCH (08:55)
[2023-10-20] MEDS: Apixaban 5 MG TAB PO SCH (08:55)
[2023-10-20] MEDS: Famotidine 20 MG TAB PO SCH (08:55)
[2023-10-20] MEDS: Finasteride 5 MG TAB PO SCH (08:55)
[2023-10-20] MEDS: Carvedilol 3.125 MG TAB PO SCH (08:55)
[2023-10-20] MEDS: dilTIAZem CD 240 MG CAP PO SCH (08:55)
[2023-10-20] MEDS: Escitalopram Oxalate 10 mg Tablet PO SCH (08:56)
[2023-10-20] MEDS: Ferrous Sulfate 325 MG TAB PO SCH (08:56)
[2023-10-20] MEDS: Docusate 100 MG CAP PO SCH (08:56)
[2023-10-20] MEDS ORDERED: Vancomycin 1 GM in Sodium Chloride 0.9% 250 ML 250 ML IVPB SCH (09:00)
[2023-10-20] MEDS ORDERED: BUDESONIDE 1 MG/2 ML INH SCH (09:00)
[2023-10-20] MEDS: Vancomycin (BATCH) 1.25 GM in Premix 1 BAG IVPB SCH (11:03)
[2023-10-20] MEDS: Insulin Lispro 100 UNIT/ML 10 ML VIAL SC PRN (17:07)
[2023-10-20] MEDS: Ipratropium/Albuterol 3 ML NEB NEB PRN (17:16)
[2023-10-20] MEDS: Atorvastatin Calcium 20 MG TAB PO SCH (20:28)
[2023-10-21] MEDS: Albuterol 2.5 MG (3 mL) NEB NEB PRN (03:32)
[2023-10-21 06:15] LABS: Vancomycin, Random 27.7 ug/mL (See Comment)
[2023-10-21] MEDS: Polyethylene Glycol 3350 17 GM Packet PO PRN (08:15)
[2023-10-21 11:09] LABS: Base Excess (BEa) 1.7 mEq/L (-2.0 to +3.0); Carboxyhemoglobin (COHb) 1.8 gm% (0.0-3.0); Hematocrit-ABG 45 % (42.0-52.0); Hemoglobin (Hb) 15.2 g/dL (14.0-18.0); Potassium - ABG Lab 4.49 mmol/L (3.70-5.30)
[2023-10-21 11:11] LABS: CO2 Tension 87.4 mmHg (35.0-45.0); O2 Tension (PaO2), arterial 57.8 mmHg (> 70.0); Puncture Site Left Radial artery; pH, Arterial 7.195 (7.35-7.45)
[2023-10-21] MEDS: dilTIAZem 125 MG in Sodium Chloride 0.9% 100 ML IVPB SCH (11:38)
[2023-10-21 11:55] LABS: #Basophils 0.04 10x3/uL (0.0-0.2); #Eosinphils Less than 0.03 10x3/uL (0.0-0.7); %Basophils 0.3 % (0.0-1.0); %Eosinophils 0.1 % (0.0-10.0); %Monocytes 6.9 % (0.0-10.0); %Neutrophils 88.9 % (42.0-75.0); Hematocrit 48.4 % (42.0-52.0); Hemoglobin 14.5 g/dL (14.0-18.0); Mean Corpuscular Hemoglobin 29.1 pg (27.0-31.0); Mean Corpuscular Volume 97.2 fL (78.0-98.0); Mean Platelet Volume 9.2 fL (7.4-10.4); Platelet Count 258 10x3/uL (130-400); RBC Distribution Width 16.1 % (11.5-14.5); Red Blood Cell (RBC) Count 4.98 mill/uL (4.70-6.10)
[2023-10-21 12:10] LABS: Anion Gap 14 mmol/L (10-20); BUN (Urea Nitrogen) 21 mg/dL (8.4-25.7); Calc. Creatinine Clearance 95 mL/min (70-130); Calcium 8.9 mg/dL (7.8-10.44); Carbon Dioxide 32 mmol/L (23-31); Chloride 103 mmol/L (98-107); Estimated GFR 68; Glucose 179 mg/dL (83-110); Potassium 4.5 mmol/L (3.5-5.1); Sodium 144 mmol/L (136-145)
[2023-10-21] MEDS: Vancomycin 1 GM in Premix 1 BAG IVPB SCH (13:26)
[2023-10-21 15:01] LABS: Actual Bicarbonate (HCO3a) 28.3 mEq/L (22-28); Base Excess (BEa) -0.2 mEq/L (-2.0 to +3.0); Calcium, Ionized (arterial) 1.18 mmol/L (1.12-1.30); Carboxyhemoglobin (COHb) 1.8 gm% (0.0-3.0); Hematocrit-ABG 44 % (42.0-52.0); Potassium - ABG Lab 4.43 mmol/L (3.70-5.30)
[2023-10-21 15:03] LABS: CO2 Tension 63.1 mmHg (35.0-45.0); O2 Tension (PaO2), arterial 58.6 mmHg (> 70.0)
[2023-10-21 15:04] LABS: ALV-art Gradient 147.725 mmHg (0-20); Puncture Site Right Brachial art
[2023-10-21] MEDS: Enoxaparin 120 MG/0.8 ML SYRINGE SC SCH (20:25)
[2023-10-22] MEDS ORDERED: Sodium Chloride 0.9% 1,000 ML IV SCH (06:00)
[2023-10-22 06:51] LABS: #Basophils 0.05 10x3/uL (0.0-0.2); %Basophils 0.5 % (0.0-1.0); %Lymphocytes 6.5 % (21.0-51.0); %Monocytes 10.4 % (0.0-10.0); %Neutrophils 80.9 % (42.0-75.0); Hematocrit 44.5 % (42.0-52.0); Hemoglobin 13.7 g/dL (14.0-18.0); Mean Corpuscular HGB CONC 30.8 g/dL (32.0-36.0); Mean Corpuscular Hemoglobin 28.7 pg (27.0-31.0); Mean Corpuscular Volume 93.1 fL (78.0-98.0); Mean Platelet Volume 9.6 fL (7.4-10.4); Platelet Count 230 10x3/uL (130-400); Red Blood Cell (RBC) Count 4.78 mill/uL (4.70-6.10)
[2023-10-22 08:15] LABS: Anion Gap 15 mmol/L (10-20); BUN (Urea Nitrogen) 24 mg/dL (8.4-25.7); Calc. Creatinine Clearance 85 mL/min (70-130); Calcium 8.9 mg/dL (7.8-10.44); Carbon Dioxide 33 mmol/L (23-31); Chloride 101 mmol/L (98-107); Estimated GFR 59; Glucose 136 mg/dL (83-110); Potassium 4.5 mmol/L (3.5-5.1); Sodium 144 mmol/L (136-145)
[2023-10-22] MEDS: Vancomycin (BATCH) 1.25 GM in Premix 1 BAG IVPB SCH (11:20)
[2023-10-22] MEDS: dilTIAZem CD 240 MG CAP PO SCH (14:43)
[2023-10-23 06:04] LABS: #Basophils Less than 0.03 10x3/uL (0.0-0.2); %Basophils 0.3 % (0.0-1.0); %Eosinophils 1.8 % (0.0-10.0); %Monocytes 10.6 % (0.0-10.0); %Neutrophils 78.9 % (42.0-75.0); Hematocrit 41.9 % (42.0-52.0); Hemoglobin 12.7 g/dL (14.0-18.0); Mean Corpuscular HGB CONC 30.3 g/dL (32.0-36.0); Mean Corpuscular Hemoglobin 29.4 pg (27.0-31.0); Mean Platelet Volume 9.2 fL (7.4-10.4); Platelet Count 218 10x3/uL (130-400); RBC Distribution Width 15.8 % (11.5-14.5); Red Blood Cell (RBC) Count 4.32 mill/uL (4.70-6.10)
[2023-10-23 06:23] LABS: Anion Gap 13 mmol/L (10-20); BUN (Urea Nitrogen) 22 mg/dL (8.4-25.7); Calc. Creatinine Clearance 96 mL/min (70-130); Calcium 8.7 mg/dL (7.8-10.44); Carbon Dioxide 34 mmol/L (23-31); Chloride 102 mmol/L (98-107); Estimated GFR 71; Glucose 108 mg/dL (83-110); Potassium 3.8 mmol/L (3.5-5.1); Sodium 145 mmol/L (136-145)
[2023-10-23 06:25] LABS: Vancomycin, Random 22.8 ug/mL (See Comment)
[2023-10-23] MEDS: dilTIAZem CD 240 MG CAP PO SCH (07:49)
[2023-10-24 06:52] LABS: #Basophils Less than 0.03 10x3/uL (0.0-0.2); %Basophils 0.3 % (0.0-1.0); %Eosinophils 1.7 % (0.0-10.0); %Lymphocytes 6.4 % (21.0-51.0); Hematocrit 41.7 % (42.0-52.0); Hemoglobin 12.7 g/dL (14.0-18.0); Mean Corpuscular HGB CONC 30.5 g/dL (32.0-36.0); Mean Corpuscular Hemoglobin 29.3 pg (27.0-31.0); Mean Corpuscular Volume 96.1 fL (78.0-98.0); Mean Platelet Volume 9.4 fL (7.4-10.4); Platelet Count 227 10x3/uL (130-400); RBC Distribution Width 15.4 % (11.5-14.5); Red Blood Cell (RBC) Count 4.34 mill/uL (4.70-6.10)
[2023-10-24 07:09] LABS: Anion Gap 14 mmol/L (10-20); BUN (Urea Nitrogen) 20 mg/dL (8.4-25.7); Calc. Creatinine Clearance 97 mL/min (70-130); Calcium 9.2 mg/dL (7.8-10.44); Carbon Dioxide 38 mmol/L (23-31); Chloride 96 mmol/L (98-107); Estimated GFR 73; Glucose 133 mg/dL (83-110); Potassium 3.5 mmol/L (3.5-5.1); Sodium 144 mmol/L (136-145)
[2023-10-24] MEDS: Nystatin Powder 15 GM BOT TOP PRN (14:50)
[2023-10-25 05:12] VITALS: BMI 38.9
[2023-10-25 06:03] LABS: Vancomycin, Random 19.9 ug/mL (See Comment)
[2023-10-25 08:02] LABS: #Basophils Less than 0.03 10x3/uL (0.0-0.2); %Basophils 0.3 % (0.0-1.0); %Eosinophils 1.6 % (0.0-10.0); %Lymphocytes 8.9 % (21.0-51.0); %Monocytes 9.3 % (0.0-10.0); %Neutrophils 79.4 % (42.0-75.0); Hematocrit 45.6 % (42.0-52.0); Hemoglobin 13.7 g/dL (14.0-18.0); Mean Corpuscular Hemoglobin 29.1 pg (27.0-31.0); Mean Corpuscular Volume 96.8 fL (78.0-98.0); Mean Platelet Volume 9.8 fL (7.4-10.4); Platelet Count 246 10x3/uL (130-400); RBC Distribution Width 15.6 % (11.5-14.5); Red Blood Cell (RBC) Count 4.71 mill/uL (4.70-6.10)
[2023-10-25 08:48] LABS: Anion Gap 16 mmol/L (10-20); BUN (Urea Nitrogen) 23 mg/dL (8.4-25.7); Calc. Creatinine Clearance 91 mL/min (70-130); Calcium 9.3 mg/dL (7.8-10.44); Carbon Dioxide 35 mmol/L (23-31); Chloride 96 mmol/L (98-107); Estimated GFR 68; Glucose 141 mg/dL (83-110); Potassium 3.7 mmol/L (3.5-5.1); Sodium 143 mmol/L (136-145)
[2023-10-25] MEDS ORDERED: Vancomycin (BATCH) 1.5 GM in Premix 1 BAG IVPB SCH (10:00)
[2023-10-25] MEDS ORDERED: Vancomycin (BATCH) 1.25 GM in Premix 1 BAG IVPB SCH (10:00)
[2023-10-25] MEDS: Apixaban 5 MG TAB PO SCH (20:12)
[2023-10-26 09:13] LABS: Actual Bicarbonate (HCO3a) 36.1 mEq/L (22-28); Base Excess (BEa) 9.5 mEq/L (-2.0 to +3.0); CO2 Tension 57.4 mmHg (35.0-45.0); Calcium, Ionized (arterial) 1.17 mmol/L (1.12-1.30); Carboxyhemoglobin (COHb) 1.2 gm% (0.0-3.0); Hematocrit-ABG 42 % (42.0-52.0); Hemoglobin (Hb) 14.2 g/dL (14.0-18.0); O2 Tension (PaO2), arterial 79.4 mmHg (> 70.0); Potassium - ABG Lab 3.97 mmol/L (3.70-5.30); pH, Arterial 7.417 (7.35-7.45)
[2023-10-26 09:14] LABS: Puncture Site Right Brachial art
[2023-10-26 10:29] LABS: #Basophils 0.03 10x3/uL (0.0-0.2); %Basophils 0.5 % (0.0-1.0); %Eosinophils 2.3 % (0.0-10.0); %Lymphocytes 6.6 % (21.0-51.0); %Monocytes 6.9 % (0.0-10.0); %Neutrophils 83.4 % (42.0-75.0); Hematocrit 43.4 % (42.0-52.0); Hemoglobin 13.2 g/dL (14.0-18.0); Mean Corpuscular HGB CONC 30.4 g/dL (32.0-36.0); Mean Corpuscular Hemoglobin 28.6 pg (27.0-31.0); Mean Corpuscular Volume 93.9 fL (78.0-98.0); Mean Platelet Volume 9.5 fL (7.4-10.4); Platelet Count 211 10x3/uL (130-400); RBC Distribution Width 15.1 % (11.5-14.5); Red Blood Cell (RBC) Count 4.62 mill/uL (4.70-6.10)
[2023-10-26 10:55] LABS: Anion Gap 12 mmol/L (10-20); BUN (Urea Nitrogen) 21 mg/dL (8.4-25.7); Calc. Creatinine Clearance 92 mL/min (70-130); Calcium 9.5 mg/dL (7.8-10.44); Carbon Dioxide 40 mmol/L (23-31); Cardiac Risk 4.4 (Less than 4.5); Chloride 95 mmol/L (98-107); Cholesterol 128 mg/dl (< 200 Desired); Estimated GFR 70; Glucose 219 mg/dL (83-110); HDL Cholesterol 29 mg/dL (>60 Neg Risk); LDL Cholesterol, Calculated 72 mg/dL; Potassium 3.8 mmol/L (3.5-5.1); Sodium 143 mmol/L (136-145); Triglycerides 136 mg/dL (Less than 150)
[2023-10-26] MEDS: Arformoterol 15 MCG/2 ML NEB NEB SCH (19:03)
[2023-10-26] MEDS: Budesonide 0.5 MG/2 ML NEB INH SCH (19:09)
[2023-10-26] MEDS: Insulin Lispro 100 UNIT/ML 10 ML VIAL SC PRN (20:56)
[2023-10-27 04:40] LABS: Anion Gap 13 mmol/L (10-20); BUN (Urea Nitrogen) 26 mg/dL (8.4-25.7); Calc. Creatinine Clearance 95 mL/min (70-130); Carbon Dioxide 37 mmol/L (23-31); Chloride 96 mmol/L (98-107); Estimated GFR 72; Glucose 166 mg/dL (83-110); Potassium 3.5 mmol/L (3.5-5.1); Sodium 142 mmol/L (136-145)
[2023-10-27] MEDS: Furosemide 40 MG TAB PO SCH (14:12)
[2023-10-28 05:04] LABS: Anion Gap 12 mmol/L (10-20); BUN (Urea Nitrogen) 27 mg/dL (8.4-25.7); Calc. Creatinine Clearance 88 mL/min (70-130); Calcium 9.3 mg/dL (7.8-10.44); Carbon Dioxide 41 mmol/L (23-31); Chloride 96 mmol/L (98-107); Estimated GFR 66; Glucose 146 mg/dL (83-110); Potassium 3.7 mmol/L (3.5-5.1); Sodium 145 mmol/L (136-145)
[2023-11-02 17:55] VITALS: BMI 38.7
[2023-11-03 04:28] LABS: Anion Gap 15 mmol/L (10-20); BUN (Urea Nitrogen) 29 mg/dL (8.4-25.7); Calc. Creatinine Clearance 114 mL/min (70-130); Calcium 9.6 mg/dL (7.8-10.44); Carbon Dioxide 31 mmol/L (23-31); Chloride 99 mmol/L (98-107); Estimated GFR 88; Glucose 147 mg/dL (83-110); Potassium 3.7 mmol/L (3.5-5.1); Sodium 141 mmol/L (136-145)
[2023-11-04 10:45] VITALS: BP 165/104
[2023-11-05 11:28] VITALS: TEMP 97.7
== END 2023-11-05 14:03 | disposition home or self-care (01) | DRG 193 ==
LOC: ERS 16:38 → 2SE 21:06 → CCU 10-21 12:36 → IMCU/EMU 10-22 11:11
PROVIDERS: ADMIT Student in an Organized Health Care Education/Training Program; ATTEND Internal Medicine
PROC: 4A133R1 Monitoring of Arterial Saturation, Peripheral, Percutaneous Approach (ICD-10-PCS; principal; 2023-10-21)
PROC: 5A09557 Assistance with Respiratory Ventilation, Greater than 96 Consecutive Hours, Continuous Positive Airway Pressure (ICD-10-PCS; 2023-10-21)
DX: J18.9 Pneumonia, unspecified organism (principal); I50.33 Acute on chronic diastolic (congestive) heart failure; J96.21 Acute and chronic respiratory failure with hypoxia; J96.22 Acute and chronic respiratory failure with hypercapnia; J96.02 Acute respiratory failure with hypercapnia; E66.2 Morbid (severe) obesity with alveolar hypoventilation; I48.11 Longstanding persistent atrial fibrillation; L03.115 Cellulitis of right lower limb; J44.0 Chronic obstructive pulmonary disease with (acute) lower respiratory infection; I11.0 Hypertensive heart disease with heart failure; E78.5 Hyperlipidemia, unspecified; E11.621 Type 2 diabetes mellitus with foot ulcer; L97.519 Non-pressure chronic ulcer of other part of right foot with unspecified severity; N40.0 Benign prostatic hyperplasia without lower urinary tract symptoms; Z79.4 Long term (current) use of insulin; Z79.01 Long term (current) use of anticoagulants; Z99.81 Dependence on supplemental oxygen; Z79.899 Other long term (current) drug therapy; Z79.84 Long term (current) use of oral hypoglycemic drugs; Z90.49 Acquired absence of other specified parts of digestive tract; I25.2 Old myocardial infarction; Z87.891 Personal history of nicotine dependence; Z68.38 Body mass index [BMI] 38.0-38.9, adult; Z51.5 Encounter for palliative care
CPT/HCPCS: 36415; 36416; 36600; 71045; 71250; 74177; 80048; 80053; 80061; 80162; 80202; 82565; 82805; 83605; 83735; 83880; 84145; 84484; 85025; 86141; 87040; 87081; 93005; 93010; 93306; 94640; 94660; 96374; J1650; J1815; J1940; J2543; J3370; J3370-JW; J7611; J7620; J7626; Q9967

== ENCOUNTER 2023-12-31 05:49 | Inpatient (IN) | payer MEDICARE ==
[2023-12-31] MEDS ORDERED: Magnesium 2 GM/50 ML BAG (IN WATER) ONE (06:03)
[2023-12-31] MEDS ORDERED: Propofol 1,000 MG/100 ML VIAL IV ONE ×2 (06:06→06:15)
[2023-12-31] MEDS ORDERED: NOREPINEPHRINE 8 MG/250 ML-D5W 250 ML ONE (06:15)
[2023-12-31 06:26] LABS: #Basophils 0.12 10x3/uL (0.0-0.2); %Basophils 0.6 % (0.0-1.0); %Eosinophils 1.1 % (0.0-10.0); %Lymphocytes 19.2 % (21.0-51.0); %Monocytes 5.6 % (0.0-10.0); %Neutrophils 69.7 % (42.0-75.0); Hematocrit 51.3 % (42.0-52.0); Hemoglobin 15.1 g/dL (14.0-18.0); Mean Corpuscular HGB CONC 29.4 g/dL (32.0-36.0); Mean Corpuscular Hemoglobin 28.4 pg (27.0-31.0); Mean Corpuscular Volume 96.6 fL (78.0-98.0); Mean Platelet Volume 10.9 fL (7.4-10.4); Platelet Count 266 10x3/uL (130-400); RBC Distribution Width 15.4 % (11.5-14.5); Red Blood Cell (RBC) Count 5.31 mill/uL (4.70-6.10)
[2023-12-31 06:37] LABS: Actual Bicarbonate (HCO3a) 25.7 mEq/L (22-28); Base Excess (BEa) -7.5 mEq/L (-2.0 to +3.0); Calcium, Ionized (arterial) 1.29 mmol/L (1.12-1.30); Carboxyhemoglobin (COHb) 1.6 gm% (0.0-3.0); Hematocrit-ABG 45 % (42.0-52.0); Hemoglobin (Hb) 15.2 g/dL (14.0-18.0); O2 Tension (PaO2), arterial 87.2 mmHg (> 70.0); Potassium - ABG Lab 4.32 mmol/L (3.70-5.30)
[2023-12-31] MEDS ORDERED: Sodium Bicarb 50 MEQ/50 ML Abboject 8.4% SYRINGE ONE (06:41)
[2023-12-31 06:44] LABS: CO2 Tension 95.4 mmHg (35.0-45.0); Puncture Site Arterial Line; pH, Arterial 7.048 (7.35-7.45)
[2023-12-31 06:45] LABS: ALT (SGPT) 34 U/L (8-55); AST (SGOT) 58 U/L (5-34); Albumin 3.2 g/dL (3.4-4.8); Alkaline Phosphatase 135 U/L (40-110); Anion Gap 20 mmol/L (10-20); BUN (Urea Nitrogen) 27 mg/dL (8.4-25.7); Bilirubin, Total 0.5 mg/dL (0.2-1.2); Calc. Creatinine Clearance 0 mL/min (70-130); Carbon Dioxide 21 mmol/L (23-31); Chloride 109 mmol/L (98-107); Estimated GFR 48; Globulin 4.8 g/dL (2.4-3.5); Glucose 324 mg/dL (83-110); Lipase 39 U/L (8-78); Magnesium 2.4 mg/dL (1.6-2.6); Potassium 5.5 mmol/L (3.5-5.1); Sodium 144 mmol/L (136-145)
[2023-12-31] MEDS ORDERED: Tirofiban-0.9% Sodium Chloride 250 ML ONE (06:45)
[2023-12-31 06:49] LABS: Troponin I 0.316 ng/mL (< 0.028)
[2023-12-31] MEDS ORDERED: Heparin 10,000 UNITS/ 10 ML VIAL ONE (07:36)
[2023-12-31] MEDS ORDERED: Tirofiban-0.9% Sodium Chloride 250 ML IVPB SCH (07:45)
[2023-12-31 08:06] LABS: Actual Bicarbonate (HCO3a) 24.2 mEq/L (22-28); Base Excess (BEa) -3.6 mEq/L (-2.0 to +3.0); CO2 Tension 54.7 mmHg (35.0-45.0); Calcium, Ionized (arterial) 1.16 mmol/L (1.12-1.30); Carboxyhemoglobin (COHb) 1.6 gm% (0.0-3.0); Hematocrit-ABG 43 % (42.0-52.0); Hemoglobin (Hb) 14.5 g/dL (14.0-18.0); O2 Tension (PaO2), arterial 60.2 mmHg (> 70.0); Potassium - ABG Lab 4.88 mmol/L (3.70-5.30); pH, Arterial 7.263 (7.35-7.45)
[2023-12-31 08:09] LABS: ALV-art Gradient 584.425 mmHg (0-20); Puncture Site Arterial Line
[2023-12-31] MEDS ORDERED: Glucagon 1 MG/ML KIT IM PRN (08:22)
[2023-12-31] MEDS ORDERED: Dextrose 5% in Water 1,000 ML IV PRN (08:22)
[2023-12-31] MEDS ORDERED: Dextrose 50% Abboject 50 ML SYRINGE SLOW IVP PRN (08:22)
[2023-12-31] MEDS: Sodium Chloride 0.9% 500 ML IV SCH (08:29)
[2023-12-31] MEDS: Vecuronium 10 MG VIAL IVP PRN (08:29)
[2023-12-31] MEDS: Clopidogrel Bisulfate 300 MG TAB PO SCH (08:30)
[2023-12-31 09:14] LABS: INR-International Normal Ratio 1.3; Prothrombin Time 15.8 sec (12.0-14.7)
[2023-12-31 09:20] LABS: #Basophils 0.08 10x3/uL (0.0-0.2); %Basophils 0.4 % (0.0-1.0); %Eosinophils 0.2 % (0.0-10.0); %Lymphocytes 2.9 % (21.0-51.0); %Monocytes 6.9 % (0.0-10.0); %Neutrophils 87.9 % (42.0-75.0); Hematocrit 46.1 % (42.0-52.0); Hemoglobin 14.4 g/dL (14.0-18.0); Mean Corpuscular HGB CONC 31.2 g/dL (32.0-36.0); Mean Corpuscular Hemoglobin 28.7 pg (27.0-31.0); Mean Corpuscular Volume 91.8 fL (78.0-98.0); Mean Platelet Volume 10.2 fL (7.4-10.4); Platelet Count 408 10x3/uL (130-400); RBC Distribution Width 15.4 % (11.5-14.5); Red Blood Cell (RBC) Count 5.02 mill/uL (4.70-6.10)
[2023-12-31 09:28] LABS: Troponin I 26.293 ng/mL (< 0.028)
[2023-12-31] MEDS ORDERED: Iopamidol 370 76% 100 ML VIAL ONE (09:36)
[2023-12-31] MEDS: Pantoprazole 40 MG VIAL IVP SCH ×2 (09:41→21:59)
[2023-12-31] MEDS: Aspirin Chewable 81 MG TAB PO SCH (09:41)
[2023-12-31 09:46] LABS: Glucose 340 mg/dL (83-110)
[2023-12-31 10:14] LABS: PTT 142.3 sec (22.9-36.1)
[2023-12-31] MEDS ORDERED: Ventilator Sedation Protocol 1 EACH FS SCH (11:00)
[2023-12-31] MEDS ORDERED: DISCONTINUE PREVIOUS NARCOTIC PAIN MEDICATIONS AND BENZODIAZEPINES FS SCH (11:15)
[2023-12-31] MEDS ORDERED: Fentanyl BOLUS 250 ML IVPB PRN (11:15)
[2023-12-31] MEDS ORDERED: Propofol BOLUS 1,000 MG/100 ML VIAL IV PRN (11:15)
[2023-12-31] MEDS: Propofol 1,000 MG/100 ML VIAL IV PRN (11:30)
[2023-12-31] MEDS: NOREPINEPHRINE 8 MG/250 ML-D5W 250 ML IVPB SCH (11:46)
[2023-12-31] MEDS: Lorazepam 2 MG/ML VIAL SLOW IVP PRN (11:46)
[2023-12-31] MEDS: Insulin Regular, Human 100 UNIT/ML 10 ML VIAL SC PRN (11:46)
[2023-12-31 12:50] LABS: Glucose 319 mg/dL (83-110)
[2023-12-31 13:49] LABS: Troponin I 63.384 ng/mL (< 0.028)
[2023-12-31 14:01] LABS: #Basophils 0.06 10x3/uL (0.0-0.2); #Eosinophils Less than 0.03 10x3/uL (0.0-0.7); %Basophils 0.2 % (0.0-1.0); %Lymphocytes 1.9 % (21.0-51.0); %Monocytes 6.5 % (0.0-10.0); %Neutrophils 90.2 % (42.0-75.0); Hematocrit 44.2 % (42.0-52.0); Hemoglobin 13.9 g/dL (14.0-18.0); Mean Corpuscular HGB CONC 31.4 g/dL (32.0-36.0); Mean Corpuscular Hemoglobin 28.3 pg (27.0-31.0); Mean Corpuscular Volume 89.8 fL (78.0-98.0); Mean Platelet Volume 9.7 fL (7.4-10.4); Platelet Count 402 10x3/uL (130-400); RBC Distribution Width 15.5 % (11.5-14.5); Red Blood Cell (RBC) Count 4.92 mill/uL (4.70-6.10)
[2023-12-31 18:47] LABS: #Basophils Less than 0.03 10x3/uL (0.0-0.2); #Eosinophils Less than 0.03 10x3/uL (0.0-0.7); %Basophils 0.1 % (0.0-1.0); %Lymphocytes 4.1 % (21.0-51.0); %Monocytes 7.5 % (0.0-10.0); %Neutrophils 87.4 % (42.0-75.0); Hematocrit 41.5 % (42.0-52.0); Hemoglobin 13.5 g/dL (14.0-18.0); Mean Corpuscular HGB CONC 32.5 g/dL (32.0-36.0); Mean Corpuscular Hemoglobin 28.5 pg (27.0-31.0); Mean Corpuscular Volume 87.7 fL (78.0-98.0); Platelet Count 382 10x3/uL (130-400); RBC Distribution Width 15.5 % (11.5-14.5); Red Blood Cell (RBC) Count 4.73 mill/uL (4.70-6.10)
[2023-12-31 18:54] LABS: Glucose 258 mg/dL (83-110)
[2023-12-31] MEDS: Fentanyl CADD 100 ML IV SCH (19:32)
[2023-12-31] MEDS: Amiodarone 450 MG, Admixture Fee 1 EACH in Dextrose 5% in Water 250 ML IVPB SCH (20:37)
[2023-12-31 20:57] LABS: #Basophils 0.04 10x3/uL (0.0-0.2); #Eosinophils Less than 0.03 10x3/uL (0.0-0.7); %Basophils 0.2 % (0.0-1.0); %Lymphocytes 3.6 % (21.0-51.0); %Monocytes 10.3 % (0.0-10.0); %Neutrophils 85.4 % (42.0-75.0); Hematocrit 41.6 % (42.0-52.0); Hemoglobin 13.4 g/dL (14.0-18.0); Mean Corpuscular HGB CONC 32.2 g/dL (32.0-36.0); Mean Corpuscular Hemoglobin 28.8 pg (27.0-31.0); Mean Corpuscular Volume 89.3 fL (78.0-98.0); Mean Platelet Volume 9.5 fL (7.4-10.4); Platelet Count 387 10x3/uL (130-400); RBC Distribution Width 15.6 % (11.5-14.5); Red Blood Cell (RBC) Count 4.66 mill/uL (4.70-6.10)
[2023-12-31 21:04] LABS: Glucose 249 mg/dL (83-110)
[2023-12-31 21:10] LABS: INR-International Normal Ratio 1.2; PTT 25.1 sec (22.9-36.1); Prothrombin Time 15.1 sec (12.0-14.7)
[2023-12-31 23:48] LABS: Hematocrit 41.7 % (42.0-52.0); Hemoglobin 13.3 g/dL (14.0-18.0)
[2024-01-01 02:03] LABS: Glucose 226 mg/dL (83-110)
[2024-01-01 02:06] LABS: #Basophils 0.06 10x3/uL (0.0-0.2); %Basophils 0.5 % (0.0-1.0); %Eosinophils 0.9 % (0.0-10.0); %Lymphocytes 7.2 % (21.0-51.0); %Monocytes 15.4 % (0.0-10.0); %Neutrophils 75.7 % (42.0-75.0); Hematocrit 41.7 % (42.0-52.0); Hemoglobin 13.4 g/dL (14.0-18.0); Mean Corpuscular HGB CONC 32.1 g/dL (32.0-36.0); Mean Corpuscular Hemoglobin 28.7 pg (27.0-31.0); Mean Corpuscular Volume 89.3 fL (78.0-98.0); Mean Platelet Volume 10.2 fL (7.4-10.4); Platelet Count 387 10x3/uL (130-400); RBC Distribution Width 15.9 % (11.5-14.5); Red Blood Cell (RBC) Count 4.67 mill/uL (4.70-6.10)
[2024-01-01] MEDS: Acetaminophen 650 MG Suppository PR PRN (04:35)
[2024-01-01 04:44] LABS: #Basophils 0.06 10x3/uL (0.0-0.2); #Eosinophils Less than 0.03 10x3/uL (0.0-0.7); %Basophils 0.7 % (0.0-1.0); %Eosinophils 0.2 % (0.0-10.0); %Lymphocytes 8.9 % (21.0-51.0); %Monocytes 19.5 % (0.0-10.0); %Neutrophils 70.5 % (42.0-75.0); Hematocrit 41.1 % (42.0-52.0); Hemoglobin 13.4 g/dL (14.0-18.0); Mean Corpuscular HGB CONC 32.6 g/dL (32.0-36.0); Mean Corpuscular Hemoglobin 28.4 pg (27.0-31.0); Mean Corpuscular Volume 87.1 fL (78.0-98.0); Platelet Count 370 10x3/uL (130-400); RBC Distribution Width 15.8 % (11.5-14.5); Red Blood Cell (RBC) Count 4.72 mill/uL (4.70-6.10)
[2024-01-01 05:05] LABS: ALT (SGPT) 39 U/L (8-55); AST (SGOT) 86 U/L (5-34); Albumin 2.5 g/dL (3.4-4.8); Alkaline Phosphatase 79 U/L (40-110); Anion Gap 16 mmol/L (10-20); BUN (Urea Nitrogen) 45 mg/dL (8.4-25.7); Bilirubin, Total 0.6 mg/dL (0.2-1.2); Calc. Creatinine Clearance 0 mL/min (70-130); Calcium 8.4 mg/dL (7.8-10.44); Carbon Dioxide 23 mmol/L (23-31); Chloride 107 mmol/L (98-107); Estimated GFR 44; Globulin 3.3 g/dL (2.4-3.5); Glucose 211 mg/dL (83-110); Magnesium 2.3 mg/dL (1.6-2.6); Potassium 3.7 mmol/L (3.5-5.1); Protein, Total 5.8 g/dL (5.8-8.1); Sodium 142 mmol/L (136-145)
[2024-01-01 06:30] LABS: Glucose 202 mg/dL (83-110)
[2024-01-01 07:36] LABS: Actual Bicarbonate (HCO3a) 22.4 mEq/L (22-28); Base Excess (BEa) 0.1 mEq/L (-2.0 to +3.0); CO2 Tension 29.8 mmHg (35.0-45.0); Calcium, Ionized (arterial) 1.07 mmol/L (1.12-1.30); Carboxyhemoglobin (COHb) 1.3 gm% (0.0-3.0); Hematocrit-ABG 40 % (42.0-52.0); Hemoglobin (Hb) 13.6 g/dL (14.0-18.0); O2 Tension (PaO2), arterial 95.2 mmHg (> 70.0); Potassium - ABG Lab 3.62 mmol/L (3.70-5.30); pH, Arterial 7.494 (7.35-7.45)
[2024-01-01 07:43] LABS: Puncture Site Arterial Line
[2024-01-01] MEDS: Clopidogrel Bisulfate 75 MG TAB PO SCH (08:38)
[2024-01-01 08:54] LABS: Hematocrit 42.6 % (42.0-52.0); Hemoglobin 13.3 g/dL (14.0-18.0); Mean Corpuscular HGB CONC 31.2 g/dL (32.0-36.0); Mean Corpuscular Hemoglobin 28.6 pg (27.0-31.0); Mean Corpuscular Volume 91.6 fL (78.0-98.0); Mean Platelet Volume 9.9 fL (7.4-10.4); Platelet Count 353 10x3/uL (130-400); RBC Distribution Width 16.1 % (11.5-14.5); Red Blood Cell (RBC) Count 4.65 mill/uL (4.70-6.10)
[2024-01-01 09:54] LABS: Band 49 % (5-11); Large Platelets 1.9 % (0-5); Lymphocytes 6 % (21-51); Metamyelocyte 12 % (0-0); Monocytes 13 % (0-10); Neutrophil 14 % (42-75); Platelet Adequacy Comment Platelets Normal; Polychromasia SLIGHT = 2-3 cells HPF (0-2); Reactive Lymphocytes 8 % (0-10); Smudge Cells 5.8 %
[2024-01-01] MEDS: Acetaminophen 325 MG TAB PO PRN (09:55)
[2024-01-01] MEDS: Hydrocortisone Sod Succ/PF 100 mg/2 ml Vial IVP SCH (10:30)
[2024-01-01] MEDS: Piperacillin/Tazobactam 3.375 GM in Sodium Chloride 0.9% 100 ML IVPB SCH ×2 (10:31→13:01)
[2024-01-01] MEDS: Metoprolol Tartrate 5 MG (5 mL) VIAL IVP SCH (12:49)
[2024-01-01] MEDS: Metoprolol Tartrate 5 MG (5 mL) VIAL ONE (12:54)
[2024-01-01 14:51] LABS: Critical Call Chem Troponin I RESULT DECREASING; Troponin I 36.194 ng/mL (< 0.028)
[2024-01-01 15:06] LABS: Anisocytosis SLIGHT = 6-15 cells HPF (0-5); Band 48 % (5-11); Burr Cells MODERATE= 6-15 cells HPF (0-1); Large Platelets 0.9 % (0-5); Lymphocytes 9 % (21-51); Metamyelocyte 14 % (0-0); Monocytes 10 % (0-10); Myelocyte 4 % (0-0); Neutrophil 14 % (42-75); Ovalocytes SLIGHT = 2-5 cells HPF (0-1); Platelet Adequacy Comment Platelets Normal; Polychromasia SLIGHT = 2-3 cells HPF (0-2); Reflex for Review?? YES; Tear Drops SLIGHT = 2-5 cells HPF (0-1)
[2024-01-01 15:17] LABS: Hematocrit 41.1 % (42.0-52.0); Hemoglobin 13.3 g/dL (14.0-18.0); Mean Corpuscular HGB CONC 32.4 g/dL (32.0-36.0); Mean Corpuscular Hemoglobin 28.5 pg (27.0-31.0); Platelet Count 330 10x3/uL (130-400); RBC Distribution Width 15.9 % (11.5-14.5); Red Blood Cell (RBC) Count 4.67 mill/uL (4.70-6.10)
[2024-01-01 19:55] LABS: Hemoglobin 12.8 g/dL (14.0-18.0); Mean Corpuscular HGB CONC 31.2 g/dL (32.0-36.0); Mean Corpuscular Hemoglobin 28.7 pg (27.0-31.0); Mean Corpuscular Volume 91.9 fL (78.0-98.0); Mean Platelet Volume 9.4 fL (7.4-10.4); Platelet Count 313 10x3/uL (130-400); RBC Distribution Width 15.9 % (11.5-14.5); Red Blood Cell (RBC) Count 4.46 mill/uL (4.70-6.10)
[2024-01-01 20:19] LABS: Band 43 % (5-11); Burr Cells SLIGHT = 2-5 cells HPF (0-1); Lymphocytes 6 % (21-51); Macrocytosis SLIGHT = 6-15 cells HPF (0-5); Metamyelocyte 11 % (0-0); Monocytes 13 % (0-10); Myelocyte 2 % (0-0); Neutrophil 26 % (42-75); Platelet Adequacy Comment Platelets Normal; Poikilocytosis SLIGHT = 6-15 cells HPF (0-5); Polychromasia SLIGHT = 2-3 cells HPF (0-2); Tear Drops SLIGHT = 2-5 cells HPF (0-1); Toxic Granulation SLIGHT
[2024-01-02 01:59] LABS: #Basophils 0.04 10x3/uL (0.0-0.2); #Eosinophils Less than 0.03 10x3/uL (0.0-0.7); %Basophils 0.5 % (0.0-1.0); %Lymphocytes 6.7 % (21.0-51.0); %Monocytes 21.3 % (0.0-10.0); %Neutrophils 70.4 % (42.0-75.0); Hemoglobin 12.2 g/dL (14.0-18.0); Mean Corpuscular HGB CONC 30.5 g/dL (32.0-36.0); Mean Corpuscular Hemoglobin 28.2 pg (27.0-31.0); Mean Corpuscular Volume 92.4 fL (78.0-98.0); Mean Platelet Volume 9.5 fL (7.4-10.4); Platelet Count 264 10x3/uL (130-400); RBC Distribution Width 15.9 % (11.5-14.5); Red Blood Cell (RBC) Count 4.33 mill/uL (4.70-6.10)
[2024-01-02] MEDS: Metoprolol Tartrate 5 MG (5 mL) VIAL IVP SCH ×2 (02:15→05:48)
[2024-01-02 03:00] LABS: Anion Gap 18 mmol/L (10-20); BUN (Urea Nitrogen) 46 mg/dL (8.4-25.7); Calc. Creatinine Clearance 0 mL/min (70-130); Calcium 8.3 mg/dL (7.8-10.44); Carbon Dioxide 22 mmol/L (23-31); Chloride 107 mmol/L (98-107); Estimated GFR 45; Glucose 170 mg/dL (83-110); Potassium 3.9 mmol/L (3.5-5.1); Sodium 143 mmol/L (136-145)
[2024-01-02 03:03] LABS: Critical Call Chem Troponin I DECREASING; Troponin I 22.777 ng/mL (< 0.028)
[2024-01-02 07:12] LABS: Actual Bicarbonate (HCO3a) 23.1 mEq/L (22-28); Base Excess (BEa) 0.1 mEq/L (-2.0 to +3.0); CO2 Tension 43.5 mmHg (35.0-45.0); O2 Tension (PaO2), arterial 69.1 mmHg (> 70.0); Puncture Site Right Radial artery
[2024-01-02 07:13] LABS: ALV-art Gradient 161.725 mmHg (0-20)
[2024-01-02] MEDS: Digoxin 0.5 MG/2 ML AMP SLOW IVP SCH (09:16)
[2024-01-02 17:15] LABS: Hematocrit 38.5 % (42.0-52.0); Hemoglobin 11.9 g/dL (14.0-18.0); Mean Corpuscular HGB CONC 30.9 g/dL (32.0-36.0); Mean Corpuscular Hemoglobin 28.1 pg (27.0-31.0); Mean Corpuscular Volume 90.8 fL (78.0-98.0); Mean Platelet Volume 10.2 fL (7.4-10.4); Platelet Count 224 10x3/uL (130-400); RBC Distribution Width 15.9 % (11.5-14.5); Red Blood Cell (RBC) Count 4.24 mill/uL (4.70-6.10)
[2024-01-02 18:05] LABS: Anisocytosis SLIGHT = 6-15 cells HPF (0-5); Band 41 % (5-11); Burr Cells SLIGHT = 2-5 cells HPF (0-1); Large Platelets 3.9 % (0-5); Lymphocytes 9 % (21-51); Metamyelocyte 4 % (0-0); Monocytes 13 % (0-10); Myelocyte 1 % (0-0); Neutrophil 32 % (42-75); Ovalocytes SLIGHT = 2-5 cells HPF (0-1); Platelet Adequacy Comment Platelets Normal; Polychromasia SLIGHT = 2-3 cells HPF (0-2); Reactive Lymphocytes 1 % (0-10)
[2024-01-02] MEDS: Hydrocortisone Sod Succ/PF 100 mg/2 ml Vial IVP SCH (20:15)
[2024-01-02 20:36] LABS: Hematocrit 37.5 % (42.0-52.0); Hemoglobin 11.6 g/dL (14.0-18.0); Mean Corpuscular HGB CONC 30.9 g/dL (32.0-36.0); Mean Corpuscular Hemoglobin 28.2 pg (27.0-31.0); Mean Platelet Volume 10.2 fL (7.4-10.4); Platelet Count 246 10x3/uL (130-400); RBC Distribution Width 15.9 % (11.5-14.5); Red Blood Cell (RBC) Count 4.12 mill/uL (4.70-6.10)
[2024-01-02 20:40] LABS: Anisocytosis SLIGHT = 6-15 cells HPF (0-5); Band 42 % (5-11); Burr Cells SLIGHT = 2-5 cells HPF (0-1); Dohle Bodies SLIGHT; Lymphocytes 10 % (21-51); Metamyelocyte 6 % (0-0); Monocytes 10 % (0-10); Myelocyte 3 % (0-0); Neutrophil 29 % (42-75); Nucleated RBC (Manual Ct) 1 % (0); Platelet Adequacy Comment Platelets Normal; Polychromasia SLIGHT = 2-3 cells HPF (0-2); Promyelocytes 1 % (0-0); Toxic Granulation SLIGHT
[2024-01-03 05:05] LABS: Anion Gap 16 mmol/L (10-20); BUN (Urea Nitrogen) 55 mg/dL (8.4-25.7); Calc. Creatinine Clearance 63 mL/min (70-130); Calcium 8.3 mg/dL (7.8-10.44); Carbon Dioxide 24 mmol/L (23-31); Chloride 106 mmol/L (98-107); Estimated GFR 42; Glucose 242 mg/dL (83-110); Potassium 3.7 mmol/L (3.5-5.1); Sodium 142 mmol/L (136-145)
[2024-01-03 07:37] LABS: Actual Bicarbonate (HCO3a) 27.7 mEq/L (22-28); Base Excess (BEa) 3.5 mEq/L (-2.0 to +3.0); CO2 Tension 40.8 mmHg (35.0-45.0); Calcium, Ionized (arterial) 1.11 mmol/L (1.12-1.30); Carboxyhemoglobin (COHb) 1.4 gm% (0.0-3.0); Hematocrit-ABG 35 % (42.0-52.0); Hemoglobin (Hb) 11.8 g/dL (14.0-18.0); O2 Tension (PaO2), arterial 82.2 mmHg (> 70.0); Potassium - ABG Lab 3.32 mmol/L (3.70-5.30)
[2024-01-03 07:46] LABS: Puncture Site Right Radial artery
[2024-01-03 10:55] LABS: Hematocrit 35.7 % (42.0-52.0); Hemoglobin 10.8 g/dL (14.0-18.0); Mean Corpuscular HGB CONC 30.3 g/dL (32.0-36.0); Mean Corpuscular Hemoglobin 28.1 pg (27.0-31.0); Mean Platelet Volume 10.1 fL (7.4-10.4); Platelet Count 192 10x3/uL (130-400); RBC Distribution Width 15.8 % (11.5-14.5); Red Blood Cell (RBC) Count 3.84 mill/uL (4.70-6.10)
[2024-01-03 12:58] LABS: Band 43 % (5-11); Lymphocytes 1 % (21-51); Metamyelocyte 2 % (0-0); Monocytes 7 % (0-10); Neutrophil 48 % (42-75); Platelet Adequacy Comment Platelets Normal; Polychromasia SLIGHT = 2-3 cells HPF (0-2); Toxic Granulation SLIGHT
[2024-01-03 13:55] LABS: Hematocrit 35.2 % (42.0-52.0); Hemoglobin 10.9 g/dL (14.0-18.0); Mean Corpuscular Hemoglobin 28.2 pg (27.0-31.0); Mean Corpuscular Volume 91.2 fL (78.0-98.0); Mean Platelet Volume 10.4 fL (7.4-10.4); Platelet Count 195 10x3/uL (130-400); RBC Distribution Width 15.9 % (11.5-14.5); Red Blood Cell (RBC) Count 3.86 mill/uL (4.70-6.10)
[2024-01-03 15:14] LABS: Anisocytosis SLIGHT = 6-15 cells HPF (0-5); Band 27 % (5-11); Dohle Bodies SLIGHT; Lymphocytes 4 % (21-51); Macrocytosis SLIGHT = 6-15 cells HPF (0-5); Monocytes 5 % (0-10); Neutrophil 64 % (42-75); Ovalocytes SLIGHT = 2-5 cells HPF (0-1); Platelet Adequacy Comment Platelets Normal; Polychromasia SLIGHT = 2-3 cells HPF (0-2); Toxic Granulation SLIGHT; Vacuoles SLIGHT
[2024-01-03 20:28] LABS: Hematocrit 36.2 % (42.0-52.0); Hemoglobin 10.9 g/dL (14.0-18.0); Mean Corpuscular HGB CONC 30.1 g/dL (32.0-36.0); Mean Corpuscular Hemoglobin 28.2 pg (27.0-31.0); Mean Corpuscular Volume 93.8 fL (78.0-98.0); Mean Platelet Volume 10.3 fL (7.4-10.4); Platelet Count 175 10x3/uL (130-400); RBC Distribution Width 15.7 % (11.5-14.5); Red Blood Cell (RBC) Count 3.86 mill/uL (4.70-6.10)
[2024-01-03 20:54] LABS: Anisocytosis SLIGHT = 6-15 cells HPF (0-5); Band 22 % (5-11); Lymphocytes 5 % (21-51); Monocytes 8 % (0-10); Neutrophil 65 % (42-75); Ovalocytes SLIGHT = 2-5 cells HPF (0-1); Platelet Adequacy Comment Platelets Normal; Polychromasia SLIGHT = 2-3 cells HPF (0-2); Toxic Granulation SLIGHT; Vacuoles SLIGHT
[2024-01-03 22:10] LABS: Hematocrit 38.3 % (42.0-52.0); Hemoglobin 11.7 g/dL (14.0-18.0); Mean Corpuscular HGB CONC 30.5 g/dL (32.0-36.0); Mean Corpuscular Hemoglobin 27.9 pg (27.0-31.0); Mean Corpuscular Volume 91.4 fL (78.0-98.0); Mean Platelet Volume 10.3 fL (7.4-10.4); Platelet Count 200 10x3/uL (130-400); RBC Distribution Width 15.9 % (11.5-14.5); Red Blood Cell (RBC) Count 4.19 mill/uL (4.70-6.10)
[2024-01-03 22:26] LABS: ALT (SGPT) 23 U/L (8-55); AST (SGOT) 29 U/L (5-34); Albumin 2.1 g/dL (3.4-4.8); Alkaline Phosphatase 83 U/L (40-110); Anion Gap 13 mmol/L (10-20); BUN (Urea Nitrogen) 43 mg/dL (8.4-25.7); Bilirubin, Total 0.7 mg/dL (0.2-1.2); Calc. Creatinine Clearance 88 mL/min (70-130); Calcium 8.9 mg/dL (7.8-10.44); Carbon Dioxide 27 mmol/L (23-31); Chloride 108 mmol/L (98-107); Estimated GFR 63; Globulin 4.1 g/dL (2.4-3.5); Glucose 224 mg/dL (83-110); Magnesium 4.5 mg/dL (1.6-2.6); Potassium 3.3 mmol/L (3.5-5.1); Protein, Total 6.2 g/dL (5.8-8.1); Sodium 145 mmol/L (136-145)
[2024-01-03 22:31] LABS: Band 16 % (5-11); Dohle Bodies SLIGHT; Lymphocytes 14 % (21-51); Macrocytosis SLIGHT = 6-15 cells HPF (0-5); Metamyelocyte 2 % (0-0); Monocytes 6 % (0-10); Myelocyte 2 % (0-0); Neutrophil 59 % (42-75); Platelet Adequacy Comment Platelets Normal; Polychromasia SLIGHT = 2-3 cells HPF (0-2); Promyelocytes 1 % (0-0); Toxic Granulation SLIGHT
[2024-01-03] MEDS: Labetalol HCl 100 MG/20 ML VIAL SLOW IVP SCH (22:40)
[2024-01-03 22:48] LABS: Base Excess (BEa) 3.2 mEq/L (-2.0 to +3.0); CO2 Tension 38.3 mmHg (35.0-45.0); Calcium, Ionized (arterial) 1.16 mmol/L (1.12-1.30); Carboxyhemoglobin (COHb) 0.8 gm% (0.0-3.0); Hematocrit-ABG 35 % (42.0-52.0); O2 Tension (PaO2), arterial 371.5 mmHg (> 70.0); Potassium - ABG Lab 3.12 mmol/L (3.70-5.30); pH, Arterial 7.466 (7.35-7.45)
[2024-01-03 22:49] LABS: ALV-art Gradient 293.625 mmHg (0-20); Puncture Site Left Radial artery
[2024-01-04] MEDS: Morphine 2 MG/ML VIAL SLOW IVP PRN (00:11)
[2024-01-04 02:27] LABS: Hematocrit 34.5 % (42.0-52.0); Hemoglobin 10.7 g/dL (14.0-18.0); Mean Corpuscular Hemoglobin 28.2 pg (27.0-31.0); Mean Platelet Volume 10.1 fL (7.4-10.4); Platelet Count 166 10x3/uL (130-400); RBC Distribution Width 15.7 % (11.5-14.5); Red Blood Cell (RBC) Count 3.79 mill/uL (4.70-6.10)
[2024-01-04 02:34] LABS: Anion Gap 16 mmol/L (10-20); BUN (Urea Nitrogen) 40 mg/dL (8.4-25.7); Calc. Creatinine Clearance 90 mL/min (70-130); Calcium 8.3 mg/dL (7.8-10.44); Carbon Dioxide 26 mmol/L (23-31); Chloride 108 mmol/L (98-107); Estimated GFR 65; Glucose 216 mg/dL (83-110); Sodium 147 mmol/L (136-145)
[2024-01-04 03:37] LABS: Anisocytosis SLIGHT = 6-15 cells HPF (0-5); Band 21 % (5-11); Dohle Bodies SLIGHT; Elliptocytes SLIGHT = 2-5 cells HPF (0-1); Lymphocytes 2 % (21-51); Metamyelocyte 4 % (0-0); Monocytes 5 % (0-10); Myelocyte 2 % (0-0); Neutrophil 66 % (42-75); Platelet Adequacy Comment Platelets Normal; Polychromasia SLIGHT = 2-3 cells HPF (0-2); Target Cells SLIGHT = 2-5 cells HPF (0-1); Toxic Granulation SLIGHT
[2024-01-04] MEDS: Labetalol HCl 100 MG/20 ML VIAL SLOW IVP PRN (05:51)
[2024-01-04] MEDS: Electrolyte Replacement Protocol 1 EACH FS ONE (08:00)
[2024-01-04] MEDS: Hydrocortisone Sod Succ/PF 100 mg/2 ml Vial IVP SCH (08:00)
[2024-01-04] MEDS ORDERED: Electrolyte Replacement Protocol FS PRN (08:00)
[2024-01-04] MEDS: Potassium Chloride 20 MEQ in Premix 1 BAG IVPB SCH (08:00)
[2024-01-04 08:59] LABS: #Basophils Less than 0.03 10x3/uL (0.0-0.2); %Basophils 0.3 % (0.0-1.0); %Eosinophils 0.7 % (0.0-10.0); %Lymphocytes 5.5 % (21.0-51.0); %Monocytes 12.2 % (0.0-10.0); %Neutrophils 80.1 % (42.0-75.0); Hematocrit 35.6 % (42.0-52.0); Hemoglobin 10.6 g/dL (14.0-18.0); Mean Corpuscular HGB CONC 29.8 g/dL (32.0-36.0); Mean Corpuscular Volume 93.9 fL (78.0-98.0); Mean Platelet Volume 11.3 fL (7.4-10.4); Platelet Count 202 10x3/uL (130-400); RBC Distribution Width 15.8 % (11.5-14.5); Red Blood Cell (RBC) Count 3.79 mill/uL (4.70-6.10)
[2024-01-04] MEDS: Furosemide 20 MG (2 mL) VIAL SLOW IVP SCH (09:05)
[2024-01-04] MEDS: Carvedilol 3.125 MG TAB PER TUBE SCH ×2 (09:05→16:50)
[2024-01-04 09:36] LABS: Band 15 % (5-11); Eosinophils 1 % (0-10); Lymphocytes 9 % (21-51); Monocytes 18 % (0-10); Neutrophil 58 % (42-75); Platelet Adequacy Comment Platelets Normal; RBC Morphology Within Normal Limits
[2024-01-04] MEDS: Dexmedetomidine In 0.9 % NaCl 100 ML IVPB SCH (10:30)
[2024-01-04] MEDS: Enoxaparin 40 MG (0.4 mL) SYRINGE SC SCH (10:45)
[2024-01-04] MEDS: Insulin Glargine 30 UNITS/0.3 ML VIAL SC SCH (10:45)
[2024-01-04 15:03] LABS: Hematocrit 32.2 % (42.0-52.0); Hemoglobin 9.8 g/dL (14.0-18.0); Mean Corpuscular HGB CONC 30.4 g/dL (32.0-36.0); Mean Corpuscular Hemoglobin 28.1 pg (27.0-31.0); Mean Corpuscular Volume 92.3 fL (78.0-98.0); Platelet Count 148 10x3/uL (130-400); RBC Distribution Width 15.7 % (11.5-14.5); Red Blood Cell (RBC) Count 3.49 mill/uL (4.70-6.10)
[2024-01-04 16:20] LABS: Anisocytosis SLIGHT = 6-15 cells HPF (0-5); Band 15 % (5-11); Hypochromia SLIGHT = 6-15 cells HPF (0-5); Lymphocytes 1 % (21-51); Macrocytosis SLIGHT = 6-15 cells HPF (0-5); Monocytes 5 % (0-10); Neutrophil 77 % (42-75); Platelet Adequacy Comment Platelets Normal; Polychromasia SLIGHT = 2-3 cells HPF (0-2); Reactive Lymphocytes 2 % (0-10)
[2024-01-04 20:25] LABS: Hemoglobin 9.7 g/dL (14.0-18.0); Mean Corpuscular HGB CONC 29.4 g/dL (32.0-36.0); Mean Corpuscular Hemoglobin 28.3 pg (27.0-31.0); Mean Corpuscular Volume 96.2 fL (78.0-98.0); Mean Platelet Volume 10.4 fL (7.4-10.4); Platelet Count 134 10x3/uL (130-400); RBC Distribution Width 15.7 % (11.5-14.5); Red Blood Cell (RBC) Count 3.43 mill/uL (4.70-6.10)
[2024-01-04 21:13] LABS: Anisocytosis SLIGHT = 6-15 cells HPF (0-5); Band 7 % (5-11); Dohle Bodies SLIGHT; Large Platelets 2.9 % (0-5); Lymphocytes 8 % (21-51); Monocytes 11 % (0-10); Neutrophil 75 % (42-75); Ovalocytes SLIGHT = 2-5 cells HPF (0-1); Platelet Adequacy Comment Platelets Decreased; Polychromasia SLIGHT = 2-3 cells HPF (0-2); Toxic Granulation SLIGHT
[2024-01-05 02:28] LABS: #Basophils Less than 0.03 10x3/uL (0.0-0.2); %Basophils 0.2 % (0.0-1.0); %Eosinophils 0.5 % (0.0-10.0); %Lymphocytes 8.1 % (21.0-51.0); %Monocytes 11.5 % (0.0-10.0); %Neutrophils 77.3 % (42.0-75.0); Hematocrit 32.5 % (42.0-52.0); Hemoglobin 9.5 g/dL (14.0-18.0); Mean Corpuscular HGB CONC 29.2 g/dL (32.0-36.0); Mean Corpuscular Hemoglobin 28.3 pg (27.0-31.0); Mean Corpuscular Volume 96.7 fL (78.0-98.0); Mean Platelet Volume 10.8 fL (7.4-10.4); Platelet Count 137 10x3/uL (130-400); RBC Distribution Width 15.8 % (11.5-14.5); Red Blood Cell (RBC) Count 3.36 mill/uL (4.70-6.10)
[2024-01-05 07:13] LABS: Anion Gap 12 mmol/L (10-20); BUN (Urea Nitrogen) 42 mg/dL (8.4-25.7); Calc. Creatinine Clearance 80 mL/min (70-130); Calcium 8.2 mg/dL (7.8-10.44); Carbon Dioxide 28 mmol/L (23-31); Chloride 109 mmol/L (98-107); Estimated GFR 58; Glucose 277 mg/dL (83-110); Potassium 3.9 mmol/L (3.5-5.1); Sodium 145 mmol/L (136-145)
[2024-01-05] MEDS: Insulin Glargine 30 UNITS/0.3 ML VIAL SC SCH ×2 (08:00→09:20)
[2024-01-05] MEDS: Enoxaparin 40 MG (0.4 mL) SYRINGE SC SCH (08:00)
[2024-01-05 08:24] LABS: #Basophils 0.03 10x3/uL (0.0-0.2); %Basophils 0.4 % (0.0-1.0); %Eosinophils 0.7 % (0.0-10.0); %Monocytes 12.2 % (0.0-10.0); %Neutrophils 77.4 % (42.0-75.0); Hematocrit 33.4 % (42.0-52.0); Mean Corpuscular HGB CONC 29.9 g/dL (32.0-36.0); Mean Corpuscular Hemoglobin 27.9 pg (27.0-31.0); Mean Corpuscular Volume 93.3 fL (78.0-98.0); Mean Platelet Volume 10.8 fL (7.4-10.4); Platelet Count 161 10x3/uL (130-400); RBC Distribution Width 15.7 % (11.5-14.5); Red Blood Cell (RBC) Count 3.58 mill/uL (4.70-6.10)
[2024-01-05] MEDS ORDERED: Scopolamine 1 mg/72 hour Patch TD SCH (09:15)
[2024-01-05] MEDS ORDERED: Ipratropium/Albuterol 3 ML NEB NEB PRN (09:16)
[2024-01-05] MEDS: Ipratropium/Albuterol 3 ML NEB NEB SCH (09:43)
[2024-01-05 14:18] LABS: #Basophils Less than 0.03 10x3/uL (0.0-0.2); #Eosinophils Less than 0.03 10x3/uL (0.0-0.7); %Basophils 0.2 % (0.0-1.0); %Eosinophils 0.1 % (0.0-10.0); %Lymphocytes 4.7 % (21.0-51.0); %Monocytes 9.2 % (0.0-10.0); %Neutrophils 81.7 % (42.0-75.0); Hematocrit 36.2 % (42.0-52.0); Hemoglobin 10.6 g/dL (14.0-18.0); Mean Corpuscular HGB CONC 29.3 g/dL (32.0-36.0); Mean Corpuscular Volume 95.5 fL (78.0-98.0); Mean Platelet Volume 10.3 fL (7.4-10.4); Platelet Count 179 10x3/uL (130-400); RBC Distribution Width 15.6 % (11.5-14.5); Red Blood Cell (RBC) Count 3.79 mill/uL (4.70-6.10)
[2024-01-05] MEDS ORDERED: Communication Order-Pharmacy FS SCH (16:29)
[2024-01-05 17:08] LABS: Hematocrit 33.6 % (42.0-52.0); Hemoglobin 10.1 g/dL (14.0-18.0); Platelet Count 184 10x3/uL (130-400)
[2024-01-05 20:09] LABS: Hematocrit 36.7 % (42.0-52.0); Hemoglobin 10.8 g/dL (14.0-18.0); Mean Corpuscular HGB CONC 29.4 g/dL (32.0-36.0); Mean Corpuscular Hemoglobin 28.1 pg (27.0-31.0); Mean Corpuscular Volume 95.3 fL (78.0-98.0); Platelet Count 197 10x3/uL (130-400); RBC Distribution Width 15.6 % (11.5-14.5); Red Blood Cell (RBC) Count 3.85 mill/uL (4.70-6.10)
[2024-01-05 21:28] LABS: Band 6 % (5-11); Dohle Bodies SLIGHT; Lymphocytes 5 % (21-51); Metamyelocyte 3 % (0-0); Monocytes 4 % (0-10); Neutrophil 83 % (42-75); Platelet Adequacy Comment Platelets Normal; Polychromasia SLIGHT = 2-3 cells HPF (0-2); Tear Drops SLIGHT = 2-5 cells HPF (0-1); Toxic Granulation SLIGHT
[2024-01-05] MEDS: Enoxaparin 120 MG/0.8 ML SYRINGE SC SCH (21:45)
[2024-01-06 04:35] LABS: Hematocrit 36.4 % (42.0-52.0); Hemoglobin 10.7 g/dL (14.0-18.0); Mean Corpuscular HGB CONC 29.4 g/dL (32.0-36.0); Mean Corpuscular Hemoglobin 28.2 pg (27.0-31.0); Mean Platelet Volume 10.8 fL (7.4-10.4); Platelet Count 190 10x3/uL (130-400); RBC Distribution Width 15.9 % (11.5-14.5); Red Blood Cell (RBC) Count 3.79 mill/uL (4.70-6.10)
[2024-01-06 04:59] LABS: Anion Gap 17 mmol/L (10-20); BUN (Urea Nitrogen) 31 mg/dL (8.4-25.7); Calc. Creatinine Clearance 105 mL/min (70-130); Calcium 8.5 mg/dL (7.8-10.44); Carbon Dioxide 23 mmol/L (23-31); Chloride 116 mmol/L (98-107); Estimated GFR 80; Glucose 119 mg/dL (83-110); Sodium 152 mmol/L (136-145)
[2024-01-06 05:23] LABS: Band 2 % (5-11); Dohle Bodies SLIGHT; Lymphocytes 7 % (21-51); Macrocytosis SLIGHT = 6-15 cells HPF (0-5); Metamyelocyte 4 % (0-0); Monocytes 7 % (0-10); Myelocyte 1 % (0-0); Neutrophil 78 % (42-75); Ovalocytes SLIGHT = 2-5 cells HPF (0-1); Platelet Adequacy Comment Platelets Normal; Polychromasia SLIGHT = 2-3 cells HPF (0-2); Toxic Granulation SLIGHT
[2024-01-06] MEDS ORDERED: Polyethylene Glycol 3350 17 GM Packet PO PRN (06:53)
[2024-01-06] MEDS ORDERED: Nystatin Powder 15 GM BOT TOP PRN (08:53)
[2024-01-06] MEDS: Carvedilol 6.25 MG TAB PO SCH (08:56)
[2024-01-06] MEDS ORDERED: Dextrose 5 %-0.45 % NaCl 1,000 ML IV SCH ×2 (09:00)
[2024-01-06] MEDS: Senokot S 8.6-50 MG TAB PO SCH (09:13)
[2024-01-06] MEDS: Dextrose 5 %-0.45 % NaCl 1,000 ML IV SCH (09:13)
[2024-01-06 09:39] LABS: Magnesium 2.7 mg/dL (1.6-2.6)
[2024-01-06 14:17] LABS: Hematocrit 41.1 % (42.0-52.0); Hemoglobin 11.9 g/dL (14.0-18.0); Mean Corpuscular Hemoglobin 27.8 pg (27.0-31.0); Mean Platelet Volume 10.3 fL (7.4-10.4); Platelet Count 299 10x3/uL (130-400); RBC Distribution Width 15.7 % (11.5-14.5); Red Blood Cell (RBC) Count 4.28 mill/uL (4.70-6.10)
[2024-01-06] MEDS: Furosemide 20 MG (2 mL) VIAL SLOW IVP SCH (14:20)
[2024-01-06 14:41] LABS: Anisocytosis SLIGHT = 6-15 cells HPF (0-5); Band 6 % (5-11); Lymphocytes 7 % (21-51); Monocytes 9 % (0-10); Myelocyte 2 % (0-0); Neutrophil 74 % (42-75); Platelet Adequacy Comment Platelets Normal; Polychromasia SLIGHT = 2-3 cells HPF (0-2); Reactive Lymphocytes 2 % (0-10)
[2024-01-06] MEDS: ALPRAZolam 0.5 MG TAB PO PRN (15:18)
[2024-01-06 19:46] LABS: Hematocrit 38.8 % (42.0-52.0); Mean Corpuscular HGB CONC 28.4 g/dL (32.0-36.0); Mean Corpuscular Hemoglobin 27.7 pg (27.0-31.0); Mean Corpuscular Volume 97.7 fL (78.0-98.0); Mean Platelet Volume 9.9 fL (7.4-10.4); Platelet Count 257 10x3/uL (130-400); RBC Distribution Width 15.8 % (11.5-14.5); Red Blood Cell (RBC) Count 3.97 mill/uL (4.70-6.10)
[2024-01-06 20:06] LABS: Band 5 % (5-11); Lymphocytes 8 % (21-51); Macrocytosis SLIGHT = 6-15 cells HPF (0-5); Monocytes 13 % (0-10); Neutrophil 73 % (42-75); Plasma Cells 1 % (0-0); Platelet Adequacy Comment Platelets Normal; Polychromasia MODERATE = 3-4 cells HPF (0-2)
[2024-01-07 02:00] LABS: Hematocrit 39.1 % (42.0-52.0); Hemoglobin 11.1 g/dL (14.0-18.0); Mean Corpuscular HGB CONC 28.4 g/dL (32.0-36.0); Mean Corpuscular Hemoglobin 27.8 pg (27.0-31.0); Mean Platelet Volume 9.8 fL (7.4-10.4); Platelet Count 262 10x3/uL (130-400); RBC Distribution Width 15.6 % (11.5-14.5); Red Blood Cell (RBC) Count 3.99 mill/uL (4.70-6.10)
[2024-01-07 02:43] LABS: Band 3 % (5-11); Lymphocytes 5 % (21-51); Metamyelocyte 3 % (0-0); Monocytes 3 % (0-10); Myelocyte 1 % (0-0); Neutrophil 85 % (42-75); Platelet Adequacy Comment Platelets Normal; Polychromasia SLIGHT = 2-3 cells HPF (0-2); Toxic Granulation SLIGHT
[2024-01-07] MEDS: Labetalol HCl 100 MG/20 ML VIAL SLOW IVP PRN ×2 (03:13→09:22)
[2024-01-07 05:04] LABS: Anion Gap 17 mmol/L (10-20); BUN (Urea Nitrogen) 41 mg/dL (8.4-25.7); Calc. Creatinine Clearance 83 mL/min (70-130); Calcium 9.2 mg/dL (7.8-10.44); Carbon Dioxide 26 mmol/L (23-31); Chloride 113 mmol/L (98-107); Estimated GFR 61; Glucose 180 mg/dL (83-110); Magnesium 2.5 mg/dL (1.6-2.6); Potassium 3.9 mmol/L (3.5-5.1)
[2024-01-07 05:33] LABS: Sodium 152 mmol/L (136-145)
[2024-01-07] MEDS: Carvedilol 25 MG TAB PO SCH (08:45)
[2024-01-07 08:46] LABS: Hematocrit 40.1 % (42.0-52.0); Hemoglobin 11.4 g/dL (14.0-18.0); Mean Corpuscular HGB CONC 28.4 g/dL (32.0-36.0); Mean Corpuscular Hemoglobin 27.9 pg (27.0-31.0); Mean Corpuscular Volume 98.3 fL (78.0-98.0); Mean Platelet Volume 10.4 fL (7.4-10.4); Platelet Count 287 10x3/uL (130-400); RBC Distribution Width 15.7 % (11.5-14.5); Red Blood Cell (RBC) Count 4.08 mill/uL (4.70-6.10)
[2024-01-07 09:50] LABS: Band 6 % (5-11); Lymphocytes 5 % (21-51); Metamyelocyte 2 % (0-0); Monocytes 5 % (0-10); Myelocyte 4 % (0-0); Neutrophil 78 % (42-75); Nucleated RBC (Manual Ct) 1 % (0); Platelet Adequacy Comment Platelets Normal; Polychromasia SLIGHT = 2-3 cells HPF (0-2); Toxic Granulation SLIGHT
[2024-01-07 13:47] LABS: Hematocrit 38.4 % (42.0-52.0); Hemoglobin 10.7 g/dL (14.0-18.0); Mean Corpuscular HGB CONC 27.9 g/dL (32.0-36.0); Mean Corpuscular Hemoglobin 27.6 pg (27.0-31.0); Mean Platelet Volume 10.2 fL (7.4-10.4); Platelet Count 246 10x3/uL (130-400); RBC Distribution Width 15.7 % (11.5-14.5); Red Blood Cell (RBC) Count 3.88 mill/uL (4.70-6.10)
[2024-01-07 14:20] LABS: Band 1 % (5-11); Lymphocytes 2 % (21-51); Macrocytosis SLIGHT = 6-15 cells HPF (0-5); Monocytes 3 % (0-10); Neutrophil 91 % (42-75); Nucleated RBC (Manual Ct) 1 % (0); Platelet Adequacy Comment Platelets Normal; Polychromasia SLIGHT = 2-3 cells HPF (0-2); Reactive Lymphocytes 2 % (0-10)
[2024-01-07 19:24] LABS: Hemoglobin 10.6 g/dL (14.0-18.0); Mean Corpuscular HGB CONC 28.6 g/dL (32.0-36.0); Mean Corpuscular Hemoglobin 27.6 pg (27.0-31.0); Mean Corpuscular Volume 96.4 fL (78.0-98.0); Mean Platelet Volume 10.3 fL (7.4-10.4); Platelet Count 252 10x3/uL (130-400); RBC Distribution Width 15.6 % (11.5-14.5); Red Blood Cell (RBC) Count 3.84 mill/uL (4.70-6.10)
[2024-01-07 19:46] LABS: Band 5 % (5-11); Eosinophils 2 % (0-10); Lymphocytes 4 % (21-51); Macrocytosis SLIGHT = 6-15 cells HPF (0-5); Metamyelocyte 1 % (0-0); Monocytes 5 % (0-10); Myelocyte 1 % (0-0); Neutrophil 82 % (42-75); Platelet Adequacy Comment Platelets Normal; Polychromasia SLIGHT = 2-3 cells HPF (0-2)
[2024-01-08 01:16] LABS: Actual Bicarbonate (HCO3a) 33.1 mEq/L (22-28); Base Excess (BEa) 4.1 mEq/L (-2.0 to +3.0); Calcium, Ionized (arterial) 1.25 mmol/L (1.12-1.30); Carboxyhemoglobin (COHb) 1.4 gm% (0.0-3.0); Hematocrit-ABG 35 % (42.0-52.0); Hemoglobin (Hb) 11.9 g/dL (14.0-18.0); O2 Tension (PaO2), arterial 135.5 mmHg (> 70.0); Potassium - ABG Lab 4.18 mmol/L (3.70-5.30); pH, Arterial 7.264 (7.35-7.45)
[2024-01-08 01:19] LABS: CO2 Tension 74.8 mmHg (35.0-45.0); Puncture Site Right Radial artery
[2024-01-08 02:30] LABS: Hematocrit 36.5 % (42.0-52.0); Hemoglobin 10.3 g/dL (14.0-18.0); Platelet Count 267 10x3/uL (130-400)
[2024-01-08 02:50] LABS: Hematocrit 36.4 % (42.0-52.0); Hemoglobin 10.4 g/dL (14.0-18.0); Mean Corpuscular HGB CONC 28.6 g/dL (32.0-36.0); Mean Corpuscular Hemoglobin 27.7 pg (27.0-31.0); Mean Corpuscular Volume 96.8 fL (78.0-98.0); Mean Platelet Volume 10.2 fL (7.4-10.4); Platelet Count 273 10x3/uL (130-400); RBC Distribution Width 15.4 % (11.5-14.5); Red Blood Cell (RBC) Count 3.76 mill/uL (4.70-6.10)
[2024-01-08 03:08] LABS: Actual Bicarbonate (HCO3a) 33.1 mEq/L (22-28); Base Excess (BEa) 4.1 mEq/L (-2.0 to +3.0); Calcium, Ionized (arterial) 1.24 mmol/L (1.12-1.30); Carboxyhemoglobin (COHb) 1.6 gm% (0.0-3.0); Hematocrit-ABG 35 % (42.0-52.0); O2 Tension (PaO2), arterial 72.1 mmHg (> 70.0); Potassium - ABG Lab 4.27 mmol/L (3.70-5.30); pH, Arterial 7.263 (7.35-7.45)
[2024-01-08 03:10] LABS: ALV-art Gradient 404.675 mmHg (0-20); Puncture Site RR
[2024-01-08] MEDS: Etomidate 40 MG (20 mL) VIAL IVP SCH (03:23)
[2024-01-08] MEDS: Rocuronium Bromide 50 MG/5 ML VIAL IVP SCH (03:23)
[2024-01-08 03:58] LABS: Anion Gap 13 mmol/L (10-20); BUN (Urea Nitrogen) 42 mg/dL (8.4-25.7); Calc. Creatinine Clearance 80 mL/min (70-130); Calcium 8.9 mg/dL (7.8-10.44); Carbon Dioxide 30 mmol/L (23-31); Chloride 112 mmol/L (98-107); Estimated GFR 58; Glucose 140 mg/dL (83-110); Potassium 4.3 mmol/L (3.5-5.1); Sodium 151 mmol/L (136-145)
[2024-01-08] MEDS ORDERED: Ventilator Sedation Protocol 1 EACH FS SCH (04:00)
[2024-01-08] MEDS ORDERED: Propofol BOLUS 1,000 MG/100 ML VIAL IV PRN (04:00)
[2024-01-08] MEDS ORDERED: Fentanyl CADD 100 ML IV SCH (04:00)
[2024-01-08] MEDS ORDERED: DISCONTINUE PREVIOUS NARCOTIC PAIN MEDICATIONS AND BENZODIAZEPINES FS SCH (04:00)
[2024-01-08] MEDS ORDERED: Fentanyl BOLUS 250 ML IVPB PRN (04:00)
[2024-01-08] MEDS ORDERED: Morphine 2 MG/ML VIAL SLOW IVP PRN (04:00)
[2024-01-08 04:06] LABS: Anisocytosis SLIGHT = 6-15 cells HPF (0-5); Band 10 % (5-11); Hypochromia SLIGHT = 6-15 cells HPF (0-5); Lymphocytes 3 % (21-51); Macrocytosis SLIGHT = 6-15 cells HPF (0-5); Metamyelocyte 2 % (0-0); Monocytes 3 % (0-10); Neutrophil 81 % (42-75); Platelet Adequacy Comment Platelets Normal; Polychromasia SLIGHT = 2-3 cells HPF (0-2)
[2024-01-08] MEDS: NOREPINEPHRINE 8 MG/250 ML-D5W 250 ML ONE (04:24)
[2024-01-08] MEDS: Propofol 1,000 MG/100 ML VIAL IV ONE (04:24)
[2024-01-08] MEDS ORDERED: NOREPINEPHRINE 8 MG/250 ML-D5W 250 ML IVPB SCH (04:45)
[2024-01-08 04:52] LABS: Actual Bicarbonate (HCO3a) 30.5 mEq/L (22-28); Base Excess (BEa) 6.2 mEq/L (-2.0 to +3.0); CO2 Tension 42.7 mmHg (35.0-45.0); Calcium, Ionized (arterial) 1.19 mmol/L (1.12-1.30); Carboxyhemoglobin (COHb) 1.6 gm% (0.0-3.0); Hematocrit-ABG 35 % (42.0-52.0); O2 Tension (PaO2), arterial 86.4 mmHg (> 70.0); pH, Arterial 7.472 (7.35-7.45)
[2024-01-08 04:58] LABS: ALV-art Gradient 216.725 mmHg (0-20); Puncture Site Right Radial artery
[2024-01-08] MEDS ORDERED: Etomidate 40 MG (20 mL) VIAL ONE (05:07)
[2024-01-08] MEDS ORDERED: Rocuronium Bromide 10 MG/ML (10ML VIAL) ONE (05:07)
[2024-01-08 08:27] LABS: Band 1 % (5-11); Burr Cells SLIGHT = 2-5 cells HPF (0-1); Lymphocytes 6 % (21-51); Macrocytosis SLIGHT = 6-15 cells HPF (0-5); Metamyelocyte 3 % (0-0); Monocytes 12 % (0-10); Neutrophil 78 % (42-75); Platelet Adequacy Comment Platelets Normal; Poikilocytosis MARKED = >30 cells HPF (0-5); Polychromasia MARKED = >4 cells HPF (0-2)
[2024-01-08 08:31] LABS: Hematocrit 38.1 % (42.0-52.0); Mean Corpuscular HGB CONC 28.9 g/dL (32.0-36.0); Mean Corpuscular Hemoglobin 27.5 pg (27.0-31.0); Mean Corpuscular Volume 95.3 fL (78.0-98.0); Mean Platelet Volume 11.6 fL (7.4-10.4); Platelet Count 168 10x3/uL (130-400); RBC Distribution Width 15.4 % (11.5-14.5)
[2024-01-08] MEDS: Propofol 1,000 MG/100 ML VIAL IV PRN (09:56)
[2024-01-08 13:55] LABS: Hematocrit 32.8 % (42.0-52.0); Hemoglobin 9.6 g/dL (14.0-18.0); Mean Corpuscular HGB CONC 29.3 g/dL (32.0-36.0); Mean Corpuscular Hemoglobin 28.1 pg (27.0-31.0); Mean Corpuscular Volume 95.9 fL (78.0-98.0); Mean Platelet Volume 10.3 fL (7.4-10.4); Platelet Count 258 10x3/uL (130-400); RBC Distribution Width 15.6 % (11.5-14.5); Red Blood Cell (RBC) Count 3.42 mill/uL (4.70-6.10)
[2024-01-08 14:17] LABS: Band 3 % (5-11); Eosinophils 1 % (0-10); Lymphocytes 1 % (21-51); Monocytes 5 % (0-10); Neutrophil 87 % (42-75); Nucleated RBC (Manual Ct) 1 % (0); Platelet Adequacy Comment Platelets Normal; Polychromasia SLIGHT = 2-3 cells HPF (0-2); Reactive Lymphocytes 3 % (0-10)
[2024-01-08 20:20] LABS: Hemoglobin 9.5 g/dL (14.0-18.0); Mean Corpuscular HGB CONC 29.7 g/dL (32.0-36.0); Mean Corpuscular Volume 94.4 fL (78.0-98.0); Mean Platelet Volume 10.6 fL (7.4-10.4); Platelet Count 263 10x3/uL (130-400); RBC Distribution Width 15.7 % (11.5-14.5); Red Blood Cell (RBC) Count 3.39 mill/uL (4.70-6.10)
[2024-01-08 20:37] LABS: Band 9 % (5-11); Eosinophils 2 % (0-10); Hypochromia SLIGHT = 6-15 cells HPF (0-5); Lymphocytes 4 % (21-51); Metamyelocyte 1 % (0-0); Monocytes 2 % (0-10); Myelocyte 1 % (0-0); Neutrophil 79 % (42-75); Nucleated RBC (Manual Ct) 2 % (0); Platelet Adequacy Comment Platelets Normal; Polychromasia SLIGHT = 2-3 cells HPF (0-2); Reactive Lymphocytes 2 % (0-10); Smudge Cells 5.8 %
[2024-01-09 01:44] LABS: Hematocrit 32.6 % (42.0-52.0); Hemoglobin 9.7 g/dL (14.0-18.0); Mean Corpuscular HGB CONC 29.8 g/dL (32.0-36.0); Mean Corpuscular Hemoglobin 27.9 pg (27.0-31.0); Mean Corpuscular Volume 93.7 fL (78.0-98.0); Mean Platelet Volume 10.4 fL (7.4-10.4); Platelet Count 280 10x3/uL (130-400); RBC Distribution Width 15.6 % (11.5-14.5); Red Blood Cell (RBC) Count 3.48 mill/uL (4.70-6.10)
[2024-01-09 02:45] LABS: Band 6 % (5-11); Eosinophils 1 % (0-10); Lymphocytes 5 % (21-51); Macrocytosis SLIGHT = 6-15 cells HPF (0-5); Metamyelocyte 1 % (0-0); Monocytes 3 % (0-10); Neutrophil 84 % (42-75); Platelet Adequacy Comment Platelets Normal; Polychromasia SLIGHT = 2-3 cells HPF (0-2)
[2024-01-09 05:13] LABS: Hematocrit 33.4 % (42.0-52.0); Mean Corpuscular HGB CONC 29.9 g/dL (32.0-36.0); Mean Corpuscular Hemoglobin 27.8 pg (27.0-31.0); Mean Corpuscular Volume 92.8 fL (78.0-98.0); Mean Platelet Volume 10.9 fL (7.4-10.4); Platelet Count 209 10x3/uL (130-400); RBC Distribution Width 15.9 % (11.5-14.5)
[2024-01-09 05:52] LABS: Band 1 % (5-11); Lymphocytes 5 % (21-51); Monocytes 8 % (0-10); Neutrophil 85 % (42-75); Platelet Adequacy Comment Platelets Normal; Polychromasia SLIGHT = 2-3 cells HPF (0-2); Reactive Lymphocytes 1 % (0-10)
[2024-01-09 07:22] LABS: Actual Bicarbonate (HCO3a) 30.5 mEq/L (22-28); Base Excess (BEa) 6.8 mEq/L (-2.0 to +3.0); CO2 Tension 40.2 mmHg (35.0-45.0); Calcium, Ionized (arterial) 1.19 mmol/L (1.12-1.30); Carboxyhemoglobin (COHb) 1.9 gm% (0.0-3.0); Hematocrit-ABG 31 % (42.0-52.0); Hemoglobin (Hb) 10.4 g/dL (14.0-18.0); Potassium - ABG Lab 3.54 mmol/L (3.70-5.30); pH, Arterial 7.498 (7.35-7.45)
[2024-01-09 08:04] LABS: Anion Gap 14 mmol/L (10-20); BUN (Urea Nitrogen) 45 mg/dL (8.4-25.7); Calc. Creatinine Clearance 77 mL/min (70-130); Calcium 9.1 mg/dL (7.8-10.44); Carbon Dioxide 31 mmol/L (23-31); Chloride 108 mmol/L (98-107); Estimated GFR 53; Glucose 142 mg/dL (83-110); Potassium 3.9 mmol/L (3.5-5.1); Sodium 149 mmol/L (136-145)
[2024-01-09 08:11] LABS: Puncture Site Right Radial artery
[2024-01-09] MEDS ORDERED: Haloperidol Lactate 5 MG/ML VIAL IM SCH (11:00)
[2024-01-09 13:06] LABS: Hematocrit 35.9 % (42.0-52.0); Hemoglobin 10.3 g/dL (14.0-18.0); Mean Corpuscular HGB CONC 28.7 g/dL (32.0-36.0); Mean Corpuscular Hemoglobin 27.9 pg (27.0-31.0); Mean Corpuscular Volume 97.3 fL (78.0-98.0); Mean Platelet Volume 9.8 fL (7.4-10.4); Platelet Count 245 10x3/uL (130-400); RBC Distribution Width 15.8 % (11.5-14.5); Red Blood Cell (RBC) Count 3.69 mill/uL (4.70-6.10)
[2024-01-09 13:28] LABS: Band 7 % (5-11); Lymphocytes 4 % (21-51); Macrocytosis SLIGHT = 6-15 cells HPF (0-5); Monocytes 3 % (0-10); Neutrophil 86 % (42-75); Nucleated RBC (Manual Ct) 1 % (0); Platelet Adequacy Comment Platelets Normal; Polychromasia SLIGHT = 2-3 cells HPF (0-2); Smudge Cells 10.1 %
[2024-01-09 19:50] LABS: Hematocrit 36.3 % (42.0-52.0); Hemoglobin 10.8 g/dL (14.0-18.0); Mean Corpuscular HGB CONC 29.8 g/dL (32.0-36.0); Mean Corpuscular Hemoglobin 27.6 pg (27.0-31.0); Mean Corpuscular Volume 92.8 fL (78.0-98.0); Mean Platelet Volume 10.7 fL (7.4-10.4); Platelet Count 275 10x3/uL (130-400); RBC Distribution Width 15.9 % (11.5-14.5); Red Blood Cell (RBC) Count 3.91 mill/uL (4.70-6.10)
[2024-01-09 20:09] LABS: Anisocytosis SLIGHT = 6-15 cells HPF (0-5); Band 5 % (5-11); Lymphocytes 4 % (21-51); Monocytes 2 % (0-10); Neutrophil 85 % (42-75); Platelet Adequacy Comment Platelets Normal; Polychromasia SLIGHT = 2-3 cells HPF (0-2); Reactive Lymphocytes 4 % (0-10)
[2024-01-10 00:29] LABS: #Basophils 0.03 10x3/uL (0.0-0.2); %Basophils 0.2 % (0.0-1.0); %Eosinophils 0.7 % (0.0-10.0); %Lymphocytes 4.1 % (21.0-51.0); %Monocytes 3.7 % (0.0-10.0); %Neutrophils 86.6 % (42.0-75.0); Hemoglobin 8.8 g/dL (14.0-18.0); Mean Corpuscular HGB CONC 30.3 g/dL (32.0-36.0); Mean Corpuscular Hemoglobin 28.1 pg (27.0-31.0); Mean Corpuscular Volume 92.7 fL (78.0-98.0); Mean Platelet Volume 9.9 fL (7.4-10.4); Platelet Count 269 10x3/uL (130-400); RBC Distribution Width 16.1 % (11.5-14.5); Red Blood Cell (RBC) Count 3.13 mill/uL (4.70-6.10)
[2024-01-10 04:59] LABS: Anion Gap 14 mmol/L (10-20); BUN (Urea Nitrogen) 41 mg/dL (8.4-25.7); Calc. Creatinine Clearance 88 mL/min (70-130); Calcium 8.6 mg/dL (7.8-10.44); Carbon Dioxide 27 mmol/L (23-31); Chloride 108 mmol/L (98-107); Estimated GFR 62; Glucose 245 mg/dL (83-110); Potassium 4.1 mmol/L (3.5-5.1); Sodium 145 mmol/L (136-145)
[2024-01-10 08:00] LABS: #Basophils 0.05 10x3/uL (0.0-0.2); %Basophils 0.3 % (0.0-1.0); %Eosinophils 0.7 % (0.0-10.0); %Lymphocytes 4.3 % (21.0-51.0); %Monocytes 4.8 % (0.0-10.0); %Neutrophils 85.2 % (42.0-75.0); Hematocrit 33.4 % (42.0-52.0); Hemoglobin 9.8 g/dL (14.0-18.0); Mean Corpuscular HGB CONC 29.3 g/dL (32.0-36.0); Mean Corpuscular Hemoglobin 28.1 pg (27.0-31.0); Mean Corpuscular Volume 95.7 fL (78.0-98.0); Mean Platelet Volume 10.3 fL (7.4-10.4); Platelet Count 255 10x3/uL (130-400); RBC Distribution Width 15.9 % (11.5-14.5); Red Blood Cell (RBC) Count 3.49 mill/uL (4.70-6.10)
[2024-01-10] MEDS: Amiodarone 200 MG TAB PER TUBE SCH (08:32)
[2024-01-10] MEDS ORDERED: Amiodarone 450 MG, Admixture Fee 1 EACH in Dextrose 5% in Water 250 ML IVPB SCH (11:30)
[2024-01-10 12:46] LABS: #Basophils 0.04 10x3/uL (0.0-0.2); %Basophils 0.2 % (0.0-1.0); %Eosinophils 0.9 % (0.0-10.0); %Lymphocytes 4.1 % (21.0-51.0); %Monocytes 3.9 % (0.0-10.0); %Neutrophils 86.6 % (42.0-75.0); Hematocrit 29.1 % (42.0-52.0); Hemoglobin 8.7 g/dL (14.0-18.0); Mean Corpuscular HGB CONC 29.9 g/dL (32.0-36.0); Mean Corpuscular Volume 93.6 fL (78.0-98.0); Mean Platelet Volume 10.1 fL (7.4-10.4); Platelet Count 263 10x3/uL (130-400); RBC Distribution Width 15.9 % (11.5-14.5); Red Blood Cell (RBC) Count 3.11 mill/uL (4.70-6.10)
[2024-01-10 19:22] LABS: #Basophils 0.04 10x3/uL (0.0-0.2); %Basophils 0.2 % (0.0-1.0); %Eosinophils 0.7 % (0.0-10.0); %Lymphocytes 5.3 % (21.0-51.0); %Monocytes 4.8 % (0.0-10.0); %Neutrophils 84.2 % (42.0-75.0); Hematocrit 32.8 % (42.0-52.0); Mean Corpuscular HGB CONC 30.5 g/dL (32.0-36.0); Mean Corpuscular Hemoglobin 28.2 pg (27.0-31.0); Mean Corpuscular Volume 92.4 fL (78.0-98.0); Mean Platelet Volume 11.5 fL (7.4-10.4); Platelet Count 180 10x3/uL (130-400); Red Blood Cell (RBC) Count 3.55 mill/uL (4.70-6.10)
[2024-01-10] MEDS: Lorazepam 2 MG/ML VIAL SLOW IVP PRN (22:34)
[2024-01-11 01:29] LABS: #Basophils 0.04 10x3/uL (0.0-0.2); %Basophils 0.3 % (0.0-1.0); %Eosinophils 0.9 % (0.0-10.0); %Lymphocytes 4.7 % (21.0-51.0); %Monocytes 3.8 % (0.0-10.0); %Neutrophils 86.6 % (42.0-75.0); Hematocrit 30.5 % (42.0-52.0); Hemoglobin 8.8 g/dL (14.0-18.0); Mean Corpuscular HGB CONC 28.9 g/dL (32.0-36.0); Mean Corpuscular Volume 97.1 fL (78.0-98.0); Mean Platelet Volume 11.1 fL (7.4-10.4); Platelet Count 194 10x3/uL (130-400); RBC Distribution Width 16.1 % (11.5-14.5); Red Blood Cell (RBC) Count 3.14 mill/uL (4.70-6.10)
[2024-01-11 01:40] LABS: Platelet Adequacy Comment Platelets Normal; Polychromasia SLIGHT = 2-3 cells HPF (0-2)
[2024-01-11 05:49] LABS: Anion Gap 18 mmol/L (10-20); BUN (Urea Nitrogen) 34 mg/dL (8.4-25.7); Calc. Creatinine Clearance 99 mL/min (70-130); Calcium 8.4 mg/dL (7.8-10.44); Carbon Dioxide 20 mmol/L (23-31); Chloride 106 mmol/L (98-107); Estimated GFR 72; Glucose 166 mg/dL (83-110); Potassium 5.1 mmol/L (3.5-5.1); Sodium 139 mmol/L (136-145)
[2024-01-11] MEDS: Vecuronium 10 MG VIAL IV SCH (09:19)
[2024-01-11] MEDS: Midazolam HCl 2 mg/2 ml Vial IVP SCH (09:19)
[2024-01-11] MEDS: Lidocaine 1% w/Epinephrine 1:100K 20 ML VIAL FS SCH (09:19)
[2024-01-11] MEDS: fentaNYL 50 mcg/mL 1 mL Vial SLOW IVP SCH (09:28)
[2024-01-11] MEDS: Enoxaparin 120 MG/0.8 ML SYRINGE SC SCH (10:27)
[2024-01-11 12:51] LABS: #Basophils 0.03 10x3/uL (0.0-0.2); %Basophils 0.2 % (0.0-1.0); %Eosinophils 0.7 % (0.0-10.0); %Lymphocytes 3.7 % (21.0-51.0); %Monocytes 4.2 % (0.0-10.0); %Neutrophils 86.5 % (42.0-75.0); Hematocrit 31.9 % (42.0-52.0); Hemoglobin 9.5 g/dL (14.0-18.0); Mean Corpuscular HGB CONC 29.8 g/dL (32.0-36.0); Mean Corpuscular Volume 94.1 fL (78.0-98.0); Mean Platelet Volume 10.1 fL (7.4-10.4); Platelet Count 278 10x3/uL (130-400); RBC Distribution Width 15.9 % (11.5-14.5); Red Blood Cell (RBC) Count 3.39 mill/uL (4.70-6.10)
[2024-01-11 19:50] LABS: #Basophils 0.03 10x3/uL (0.0-0.2); %Basophils 0.2 % (0.0-1.0); %Eosinophils 0.7 % (0.0-10.0); %Monocytes 4.2 % (0.0-10.0); %Neutrophils 86.6 % (42.0-75.0); Hematocrit 32.7 % (42.0-52.0); Hemoglobin 9.7 g/dL (14.0-18.0); Mean Corpuscular HGB CONC 29.7 g/dL (32.0-36.0); Mean Corpuscular Hemoglobin 28.6 pg (27.0-31.0); Mean Corpuscular Volume 96.5 fL (78.0-98.0); Mean Platelet Volume 11.1 fL (7.4-10.4); Platelet Count 241 10x3/uL (130-400); RBC Distribution Width 16.2 % (11.5-14.5); Red Blood Cell (RBC) Count 3.39 mill/uL (4.70-6.10)
[2024-01-12 01:28] LABS: #Basophils Less than 0.03 10x3/uL (0.0-0.2); %Basophils 0.1 % (0.0-1.0); %Lymphocytes 3.5 % (21.0-51.0); %Monocytes 3.8 % (0.0-10.0); %Neutrophils 88.5 % (42.0-75.0); Hematocrit 30.6 % (42.0-52.0); Hemoglobin 8.9 g/dL (14.0-18.0); Mean Corpuscular HGB CONC 29.1 g/dL (32.0-36.0); Mean Corpuscular Volume 96.2 fL (78.0-98.0); Mean Platelet Volume 10.1 fL (7.4-10.4); Platelet Count 287 10x3/uL (130-400); Red Blood Cell (RBC) Count 3.18 mill/uL (4.70-6.10)
[2024-01-12 02:23] LABS: Anion Gap 17 mmol/L (10-20); BUN (Urea Nitrogen) 33 mg/dL (8.4-25.7); Calc. Creatinine Clearance 103 mL/min (70-130); Calcium 8.7 mg/dL (7.8-10.44); Carbon Dioxide 29 mmol/L (23-31); Chloride 103 mmol/L (98-107); Estimated GFR 76; Glucose 218 mg/dL (83-110); Potassium 4.5 mmol/L (3.5-5.1); Sodium 144 mmol/L (136-145)
[2024-01-12 07:02] LABS: #Basophils 0.03 10x3/uL (0.0-0.2); %Basophils 0.2 % (0.0-1.0); %Eosinophils 0.6 % (0.0-10.0); %Lymphocytes 4.5 % (21.0-51.0); %Monocytes 5.1 % (0.0-10.0); %Neutrophils 86.8 % (42.0-75.0); Hemoglobin 9.7 g/dL (14.0-18.0); Mean Corpuscular HGB CONC 29.4 g/dL (32.0-36.0); Mean Corpuscular Volume 95.1 fL (78.0-98.0); Platelet Count 294 10x3/uL (130-400); RBC Distribution Width 16.3 % (11.5-14.5); Red Blood Cell (RBC) Count 3.47 mill/uL (4.70-6.10)
[2024-01-12] MEDS ORDERED: Midazolam HCl 2 mg/2 ml Vial ONE (12:54)
[2024-01-12 13:01] LABS: #Basophils 0.04 10x3/uL (0.0-0.2); %Basophils 0.3 % (0.0-1.0); %Eosinophils 0.6 % (0.0-10.0); %Monocytes 6.4 % (0.0-10.0); %Neutrophils 85.4 % (42.0-75.0); Hematocrit 32.5 % (42.0-52.0); Hemoglobin 9.4 g/dL (14.0-18.0); Mean Corpuscular HGB CONC 28.9 g/dL (32.0-36.0); Mean Corpuscular Hemoglobin 27.8 pg (27.0-31.0); Mean Corpuscular Volume 96.2 fL (78.0-98.0); Mean Platelet Volume 11.6 fL (7.4-10.4); Platelet Count 224 10x3/uL (130-400); RBC Distribution Width 16.2 % (11.5-14.5); Red Blood Cell (RBC) Count 3.38 mill/uL (4.70-6.10)
[2024-01-12 13:25] LABS: Hypochromia SLIGHT = 6-15 cells HPF (0-5); Platelet Adequacy Comment Platelets Normal; Polychromasia SLIGHT = 2-3 cells HPF (0-2)
[2024-01-12 18:32] LABS: #Basophils Less than 0.03 10x3/uL (0.0-0.2); %Basophils 0.2 % (0.0-1.0); %Eosinophils 0.5 % (0.0-10.0); %Lymphocytes 4.1 % (21.0-51.0); %Monocytes 4.8 % (0.0-10.0); Hematocrit 33.5 % (42.0-52.0); Hemoglobin 9.8 g/dL (14.0-18.0); Mean Corpuscular HGB CONC 29.3 g/dL (32.0-36.0); Mean Corpuscular Hemoglobin 27.5 pg (27.0-31.0); Mean Corpuscular Volume 94.1 fL (78.0-98.0); Mean Platelet Volume 11.1 fL (7.4-10.4); Platelet Count 195 10x3/uL (130-400); RBC Distribution Width 16.3 % (11.5-14.5); Red Blood Cell (RBC) Count 3.56 mill/uL (4.70-6.10)
[2024-01-13 04:14] LABS: Anion Gap 15 mmol/L (10-20); BUN (Urea Nitrogen) 27 mg/dL (8.4-25.7); Calc. Creatinine Clearance 108 mL/min (70-130); Calcium 9.2 mg/dL (7.8-10.44); Carbon Dioxide 28 mmol/L (23-31); Chloride 105 mmol/L (98-107); Estimated GFR 80; Glucose 185 mg/dL (83-110); Potassium 4.7 mmol/L (3.5-5.1); Sodium 143 mmol/L (136-145)
[2024-01-13] MEDS: Scopolamine 1 mg/72 hour Patch TD SCH (11:27)
[2024-01-13] MEDS: Enoxaparin 120 MG/0.8 ML SYRINGE SC SCH (11:28)
[2024-01-14 05:07] LABS: Anion Gap 14 mmol/L (10-20); BUN (Urea Nitrogen) 26 mg/dL (8.4-25.7); Calc. Creatinine Clearance 122 mL/min (70-130); Calcium 9.1 mg/dL (7.8-10.44); Carbon Dioxide 29 mmol/L (23-31); Chloride 104 mmol/L (98-107); Estimated GFR 90; Glucose 217 mg/dL (83-110); Potassium 4.7 mmol/L (3.5-5.1); Sodium 142 mmol/L (136-145)
[2024-01-14] MEDS: Insulin Glargine 30 UNITS/0.3 ML VIAL SC SCH (08:01)
[2024-01-14] MEDS: Glycopyrrolate 0.4 MG/ 2 ML VIAL SLOW IVP SCH (12:28)
[2024-01-14] MEDS: Scopolamine 1 mg/72 hour Patch TD SCH (12:58)
[2024-01-14] MEDS: Apixaban 5 MG TAB PER TUBE SCH (20:12)
[2024-01-15 02:16] VITALS: BP 130/80
[2024-01-15 05:00] LABS: Anion Gap 11 mmol/L (10-20); BUN (Urea Nitrogen) 29 mg/dL (8.4-25.7); Calc. Creatinine Clearance 0 mL/min (70-130); Calcium 9.3 mg/dL (7.8-10.44); Carbon Dioxide 33 mmol/L (23-31); Chloride 101 mmol/L (98-107); Estimated GFR 87; Glucose 186 mg/dL (83-110); Potassium 4.8 mmol/L (3.5-5.1); Sodium 140 mmol/L (136-145)
[2024-01-15] MEDS: Pantoprazole 40 MG VIAL IVP SCH (09:17)
[2024-01-15 09:30] LABS: Actual Bicarbonate (HCO3v) 34.9 mEq/L (22-28); Base Excess 9.1 mEq/L (-2.0 to +3.0); Calcium, Ionized (venous) 1.18 mmol/L (1.16-1.32); Chloride (VBG) 101 mmol/L (98-106); Hematocrit-VBG 28 % (42.0-52.0); Hemoglobin (Hb) 9.6 g/dL (12.6-17.4); Potassium (VBG) 4.76 mmol/L (3.70-5.30); Sodium 140 mmol/L (133-146); pH (venous) 7.418 (7.32-7.43)
[2024-01-16 05:00] LABS: Anion Gap 13 mmol/L (10-20); BUN (Urea Nitrogen) 28 mg/dL (8.4-25.7); Calc. Creatinine Clearance 122 mL/min (70-130); Carbon Dioxide 31 mmol/L (23-31); Chloride 100 mmol/L (98-107); Estimated GFR 89; Glucose 194 mg/dL (83-110); Potassium 4.7 mmol/L (3.5-5.1); Sodium 139 mmol/L (136-145)
[2024-01-16 05:51] VITALS: BMI 38.4
[2024-01-17 04:38] LABS: Anion Gap 14 mmol/L (10-20); BUN (Urea Nitrogen) 26 mg/dL (8.4-25.7); Calc. Creatinine Clearance 121 mL/min (70-130); Carbon Dioxide 30 mmol/L (23-31); Chloride 99 mmol/L (98-107); Estimated GFR 89; Glucose 186 mg/dL (83-110); Potassium 5.2 mmol/L (3.5-5.1); Sodium 138 mmol/L (136-145)
[2024-01-17] MEDS ORDERED: Amiodarone 200 MG TAB PER TUBE SCH (13:52)
[2024-01-17 15:54] VITALS: BMI 38.2
[2024-01-17 20:15] VITALS: TEMP 99.2
[2024-01-18 09:01] LABS: CO2 Tension 74.9 mmHg (35.0-45.0)
[2024-01-21] MEDS ORDERED: Amiodarone 200 MG TAB PO SCH (09:00)
== END 2024-01-17 20:15 | disposition short-term general hospital (02) | DRG 3 ==
LOC: ERS 05:49 → CCU 06:34
PROVIDERS: ADMIT Internal Medicine Cardiovascular Disease; ATTEND Internal Medicine Cardiovascular Disease
PROC: 027136Z Dilation of Coronary Artery, Two Arteries with Three Drug-eluting Intraluminal Devices, Percutaneous Approach (ICD-10-PCS; 2023-12-31)
PROC: 5A1955Z Respiratory Ventilation, Greater than 96 Consecutive Hours (ICD-10-PCS; 2023-12-31)
PROC: 0BH17EZ Insertion of Endotracheal Airway into Trachea, Via Natural or Artificial Opening (ICD-10-PCS; 2023-12-31)
PROC: 5A12012 Performance of Cardiac Output, Single, Manual (ICD-10-PCS; 2023-12-31)
PROC: 3E033XZ Introduction of Vasopressor into Peripheral Vein, Percutaneous Approach (ICD-10-PCS; 2023-12-31)
PROC: 4A023N7 Measurement of Cardiac Sampling and Pressure, Left Heart, Percutaneous Approach (ICD-10-PCS; 2023-12-31)
PROC: B2111ZZ Fluoroscopy of Multiple Coronary Arteries using Low Osmolar Contrast (ICD-10-PCS; 2023-12-31)
PROC: 4A133R1 Monitoring of Arterial Saturation, Peripheral, Percutaneous Approach (ICD-10-PCS; 2023-12-31)
PROC: 0BH17EZ Insertion of Endotracheal Airway into Trachea, Via Natural or Artificial Opening (ICD-10-PCS; principal; 2024-01-08)
PROC: 5A1955Z Respiratory Ventilation, Greater than 96 Consecutive Hours (ICD-10-PCS; 2024-01-08)
PROC: 0B113F4 Bypass Trachea to Cutaneous with Tracheostomy Device, Percutaneous Approach (ICD-10-PCS; 2024-01-11)
PROC: 0DH63UZ Insertion of Feeding Device into Stomach, Percutaneous Approach (ICD-10-PCS; 2024-01-12)
DX: I21.09 ST elevation (STEMI) myocardial infarction involving other coronary artery of anterior wall (principal); E43 Unspecified severe protein-calorie malnutrition; G93.41 Metabolic encephalopathy; J69.0 Pneumonitis due to inhalation of food and vomit; J96.21 Acute and chronic respiratory failure with hypoxia; I46.2 Cardiac arrest due to underlying cardiac condition; I49.01 Ventricular fibrillation; E66.2 Morbid (severe) obesity with alveolar hypoventilation; I48.19 Other persistent atrial fibrillation; I50.32 Chronic diastolic (congestive) heart failure; I13.0 Hypertensive heart and chronic kidney disease with heart failure and stage 1 through stage 4 chronic kidney disease, or unspecified chronic kidney disease; I47.20 Ventricular tachycardia, unspecified; I25.10 Atherosclerotic heart disease of native coronary artery without angina pectoris; J44.9 Chronic obstructive pulmonary disease, unspecified; N18.9 Chronic kidney disease, unspecified; E78.5 Hyperlipidemia, unspecified; R13.12 Dysphagia, oropharyngeal phase; I35.0 Nonrheumatic aortic (valve) stenosis; E11.22 Type 2 diabetes mellitus with diabetic chronic kidney disease; Z90.49 Acquired absence of other specified parts of digestive tract; Z87.891 Personal history of nicotine dependence; Z79.01 Long term (current) use of anticoagulants; Z79.899 Other long term (current) drug therapy; Z68.38 Body mass index [BMI] 38.0-38.9, adult; Z79.51 Long term (current) use of inhaled steroids; Z79.84 Long term (current) use of oral hypoglycemic drugs
CPT/HCPCS: 31500; 36415; 36416; 36600; 43753; 71045; 74018; 80048; 80053; 82805; 83690; 83735; 83880; 84145; 84484; 85025; 85060; 85347; 85379; 85610; 85730; 86850; 86900; 86901; 87040; 92920; 92928; 92941; 92950; 93005; 93010; 93306; 93454; 94002; 94003; 94640; 94660; 94760; 96374; 96375; B4087; C1725; C1769; C1874; C1876; C1887; C9600; C9606; J0282; J1160; J1644; J1650; J1720; J1815; J1940; J2060; J2250; J2272; J2470; J2543; J2704; J3010; J3246; J3475; J3480; J7030; J7042; J7070; J7620; Q9967

== ENCOUNTER 2024-09-14 14:04 | Inpatient (IN) | payer MEDICARE ==
[2024-09-14 14:45] LABS: #Basophils 0.06 10x3/uL (0.0-0.2); #Eosinophils 0.23 10x3/uL (0.0-0.7); #Monocytes 0.82 10x3/uL (0.11-0.59); #Neutrophils 8.28 10x3/uL (1.40-6.50); %Basophils 0.6 % (0.0-1.0); %Eosinophils 2.2 % (0.0-10.0); %Lymphocytes 9.2 % (21.0-51.0); %Monocytes 7.9 % (0.0-10.0); %Neutrophils 79.5 % (42.0-75.0); Hematocrit 42.2 % (42.0-52.0); Hemoglobin 13.3 g/dL (14.0-18.0); Mean Corpuscular Hemoglobin 27.5 pg (27.0-31.0); Mean Corpuscular Volume 87.2 fL (78.0-98.0); Platelet Count 304 10x3/uL (130-400); Red Blood Cell (RBC) Count 4.84 mill/uL (4.70-6.10); White Blood Cell (WBC) Count 10.41 10x3/uL (4.8-10.8)
[2024-09-14 15:04] LABS: ALT (SGPT) 16 U/L (Less than 45); AST (SGOT) 35 U/L (11-34); Albumin 3.1 g/dL (3.1-4.5); Alkaline Phosphatase 105 U/L (40-110); Anion Gap 17 mmol/L (10-20); BUN (Urea Nitrogen) 27 mg/dL (8.4-25.7); Bilirubin, Total 1.1 mg/dL (0.3-1.2); Calc. Creatinine Clearance 0 mL/min (70-130); Calcium 9.7 mg/dL (7.8-10.44); Carbon Dioxide 28 mmol/L (23-31); Chloride 100 mmol/L (98-107); Globulin 4.6 g/dL (2.4-3.5); Glucose 137 mg/dL (83-110); INR-International Normal Ratio 1.6; Magnesium 2.1 mg/dL (1.6-2.6); Potassium 4.2 mmol/L (3.5-5.1); Prothrombin Time 19.5 sec (12.0-14.7); Sodium 141 mmol/L (136-145)
[2024-09-14 15:06] LABS: PTT 41.7 sec (22.9-36.1)
[2024-09-14 15:07] LABS: Troponin I 0.043 ng/mL (< 0.028)
[2024-09-14 18:22] LABS: Troponin I 0.051 ng/mL (< 0.028)
[2024-09-14] MEDS ORDERED: Senokot S 8.6-50 MG TAB PO PRN (20:47)
[2024-09-14] MEDS ORDERED: Glucagon 1 MG/ML KIT IM PRN (20:47)
[2024-09-14] MEDS ORDERED: Dextrose 50% Abboject 50 ML SYRINGE SLOW IVP PRN (20:47)
[2024-09-14] MEDS ORDERED: Ondansetron PF 4 MG/2 ML Vial IVP PRN (20:47)
[2024-09-14] MEDS ORDERED: Electrolyte Replacement Protocol 1 EACH FS PRN (21:00)
[2024-09-14 23:09] LABS: Digoxin 0.86 ng/mL (0.8-2.0); Troponin I 0.045 ng/mL (< 0.028)
[2024-09-15] MEDS: Apixaban 5 MG TAB PO SCH (01:17)
[2024-09-15] MEDS: Senokot S 8.6-50 MG TAB PO SCH (01:17)
[2024-09-15 01:20] LABS: Bacteria/HPF 2+ HPF (None Seen); CAUTI Indications for Culture Dysuria,urgency,freq; Glucose, Urine (Dipstick) Normal (Negative); Leukocyte 500 Leu/uL (Negative); Protein, Urine (Dipstick) 100 mg/dL (Neg-Trace); RBC/HPF 21-50 HPF (0-3); Specific Gravity, Urine 1.020 (1.002-1.036); WBC/HPF Greater than 50 HPF (0-3)
[2024-09-15 01:22] LABS: Urine Culture Reflex Yes Yes
[2024-09-15] MEDS: cefTRIAXone\\ROCEPHIN 2 GM in Sodium Chloride 0.9% 100 ML IVPB SCH (04:30)
[2024-09-15 05:21] LABS: #Basophils 0.06 10x3/uL (0.0-0.2); #Eosinophils 0.28 10x3/uL (0.0-0.7); #Monocytes 0.69 10x3/uL (0.11-0.59); #Neutrophils 6.77 10x3/uL (1.40-6.50); %Basophils 0.7 % (0.0-1.0); %Eosinophils 3.1 % (0.0-10.0); %Lymphocytes 12.1 % (21.0-51.0); %Monocytes 7.7 % (0.0-10.0); %Neutrophils 75.6 % (42.0-75.0); Hematocrit 42.6 % (42.0-52.0); Hemoglobin 13.1 g/dL (14.0-18.0); Mean Corpuscular Hemoglobin 27.8 pg (27.0-31.0); Mean Corpuscular Volume 90.4 fL (78.0-98.0); Platelet Count 266 10x3/uL (130-400); Red Blood Cell (RBC) Count 4.71 mill/uL (4.70-6.10); White Blood Cell (WBC) Count 8.95 10x3/uL (4.8-10.8)
[2024-09-15 05:33] LABS: Anion Gap 17 mmol/L (10-20); BUN (Urea Nitrogen) 28 mg/dL (8.4-25.7); Calc. Creatinine Clearance 84 mL/min (70-130); Calcium 9.4 mg/dL (7.8-10.44); Carbon Dioxide 28 mmol/L (23-31); Chloride 100 mmol/L (98-107); Glucose 107 mg/dL (83-110); Potassium 3.5 mmol/L (3.5-5.1); Sodium 141 mmol/L (136-145)
[2024-09-15 08:25] LABS: Troponin I 0.027 ng/mL (< 0.028)
[2024-09-15] MEDS: Carvedilol 3.125 MG TAB PO SCH (09:35)
[2024-09-15] MEDS: Aspirin Chewable 81 MG TAB PO SCH (09:35)
[2024-09-15] MEDS: Acetaminophen 325 MG TAB PO PRN (09:36)
[2024-09-15] MEDS: Famotidine 20 MG TAB PO SCH (20:15)
[2024-09-17] MEDS: Digoxin 0.125 MG TAB PO SCH (08:13)
[2024-09-17] MEDS ORDERED: Nystatin Powder 15 GM BOT TOP PRN (08:45)
[2024-09-17] MEDS: valACYclovir 500 MG TAB PO SCH (09:52)
[2024-09-18 05:38] LABS: Hematocrit 39.0 % (42.0-52.0); Hemoglobin 11.8 g/dL (14.0-18.0); Mean Corpuscular Hemoglobin 27.8 pg (27.0-31.0); Mean Corpuscular Volume 92.0 fL (78.0-98.0); Platelet Count 275 10x3/uL (130-400); Red Blood Cell (RBC) Count 4.24 mill/uL (4.70-6.10); White Blood Cell (WBC) Count 7.71 10x3/uL (4.8-10.8)
[2024-09-18 05:58] LABS: Anion Gap 14 mmol/L (10-20); BUN (Urea Nitrogen) 16 mg/dL (8.4-25.7); Calc. Creatinine Clearance 125 mL/min (70-130); Calcium 9.2 mg/dL (7.8-10.44); Carbon Dioxide 29 mmol/L (23-31); Chloride 103 mmol/L (98-107); Glucose 113 mg/dL (83-110); Potassium 4.0 mmol/L (3.5-5.1); Sodium 142 mmol/L (136-145)
[2024-09-20] MEDS: Sodium Chloride 0.65% Nasal 44 ML BOT EA NARE PRN (05:06)
[2024-09-20 05:09] LABS: Hematocrit 39.5 % (42.0-52.0); Hemoglobin 12.2 g/dL (14.0-18.0); Mean Corpuscular Hemoglobin 27.8 pg (27.0-31.0); Mean Corpuscular Volume 90.0 fL (78.0-98.0); Platelet Count 225 10x3/uL (130-400); Red Blood Cell (RBC) Count 4.39 mill/uL (4.70-6.10); White Blood Cell (WBC) Count 7.40 10x3/uL (4.8-10.8)
[2024-09-20 05:31] LABS: Anion Gap 12 mmol/L (10-20); BUN (Urea Nitrogen) 11 mg/dL (8.4-25.7); Calc. Creatinine Clearance 127 mL/min (70-130); Calcium 9.0 mg/dL (7.8-10.44); Carbon Dioxide 27 mmol/L (23-31); Chloride 106 mmol/L (98-107); Glucose 123 mg/dL (83-110); Potassium 4.3 mmol/L (3.5-5.1); Sodium 141 mmol/L (136-145)
[2024-09-20] MEDS: Lactulose 20 GM (30 mL) UDCUP PER TUBE PRN (18:29)
[2024-09-20] MEDS: Chlorhexidine Gluconate 15 ML UDCUP SSP SCH (21:52)
[2024-09-20] MEDS: Gabapentin 300 MG CAP PO SCH (21:52)
[2024-09-20] MEDS: Apixaban 5 MG TAB PO SCH (21:53)
[2024-09-21 06:05] LABS: Actual Bicarbonate (HCO3v) 32.4 mEq/L (22-28); Base Excess 3.3 mEq/L (-2.0 to +3.0); Calcium, Ionized (venous) 1.22 mmol/L (1.16-1.32); Chloride (VBG) 103 mmol/L (98-106); Hematocrit-VBG 39 % (42.0-52.0); Hemoglobin (Hb) 13.3 g/dL (12.6-17.4); Potassium (VBG) 3.91 mmol/L (3.70-5.30); Sodium 143 mmol/L (133-146)
[2024-09-21] MEDS: Famotidine 20 MG TAB PO SCH (08:05)
[2024-09-21 11:57] LABS: #Basophils 0.07 10x3/uL (0.0-0.2); #Eosinophils 0.29 10x3/uL (0.0-0.7); #Monocytes 0.65 10x3/uL (0.11-0.59); #Neutrophils 6.90 10x3/uL (1.40-6.50); %Basophils 0.8 % (0.0-1.0); %Eosinophils 3.3 % (0.0-10.0); %Lymphocytes 9.2 % (21.0-51.0); %Monocytes 7.4 % (0.0-10.0); %Neutrophils 78.5 % (42.0-75.0); Hematocrit 41.0 % (42.0-52.0); Hemoglobin 12.3 g/dL (14.0-18.0); Mean Corpuscular Hemoglobin 28.0 pg (27.0-31.0); Mean Corpuscular Volume 93.4 fL (78.0-98.0); Platelet Count 254 10x3/uL (130-400); Red Blood Cell (RBC) Count 4.39 mill/uL (4.70-6.10); White Blood Cell (WBC) Count 8.79 10x3/uL (4.8-10.8)
[2024-09-21 12:12] LABS: Anion Gap 12 mmol/L (10-20); BUN (Urea Nitrogen) 11 mg/dL (8.4-25.7); Calc. Creatinine Clearance 104 mL/min (70-130); Calcium 9.4 mg/dL (7.8-10.44); Carbon Dioxide 30 mmol/L (23-31); Chloride 105 mmol/L (98-107); Glucose 150 mg/dL (83-110); Potassium 4.1 mmol/L (3.5-5.1); Sodium 143 mmol/L (136-145)
[2024-09-22 05:50] LABS: #Basophils 0.06 10x3/uL (0.0-0.2); #Eosinophils 0.37 10x3/uL (0.0-0.7); #Monocytes 0.60 10x3/uL (0.11-0.59); #Neutrophils 5.34 10x3/uL (1.40-6.50); %Basophils 0.8 % (0.0-1.0); %Eosinophils 5.1 % (0.0-10.0); %Lymphocytes 11.6 % (21.0-51.0); %Monocytes 8.3 % (0.0-10.0); %Neutrophils 73.8 % (42.0-75.0); Hematocrit 35.4 % (42.0-52.0); Hemoglobin 10.8 g/dL (14.0-18.0); Mean Corpuscular Hemoglobin 28.3 pg (27.0-31.0); Mean Corpuscular Volume 92.9 fL (78.0-98.0); Platelet Count 248 10x3/uL (130-400); Red Blood Cell (RBC) Count 3.81 mill/uL (4.70-6.10); White Blood Cell (WBC) Count 7.24 10x3/uL (4.8-10.8)
[2024-09-22 06:03] LABS: Anion Gap 11 mmol/L (10-20); BUN (Urea Nitrogen) 15 mg/dL (8.4-25.7); Calc. Creatinine Clearance 93 mL/min (70-130); Calcium 9.2 mg/dL (7.8-10.44); Carbon Dioxide 31 mmol/L (23-31); Chloride 105 mmol/L (98-107); Glucose 105 mg/dL (83-110); Potassium 4.1 mmol/L (3.5-5.1); Sodium 143 mmol/L (136-145)
[2024-09-23 05:00] LABS: #Basophils 0.06 10x3/uL (0.0-0.2); #Eosinophils 0.31 10x3/uL (0.0-0.7); #Monocytes 0.53 10x3/uL (0.11-0.59); #Neutrophils 4.64 10x3/uL (1.40-6.50); %Basophils 0.9 % (0.0-1.0); %Eosinophils 4.7 % (0.0-10.0); %Lymphocytes 15.9 % (21.0-51.0); %Monocytes 8.0 % (0.0-10.0); %Neutrophils 70.0 % (42.0-75.0); Hematocrit 35.6 % (42.0-52.0); Hemoglobin 10.7 g/dL (14.0-18.0); Mean Corpuscular Hemoglobin 28.5 pg (27.0-31.0); Mean Corpuscular Volume 94.7 fL (78.0-98.0); Platelet Count 253 10x3/uL (130-400); Red Blood Cell (RBC) Count 3.76 mill/uL (4.70-6.10); White Blood Cell (WBC) Count 6.62 10x3/uL (4.8-10.8)
[2024-09-23 05:16] LABS: Anion Gap 10 mmol/L (10-20); BUN (Urea Nitrogen) 17 mg/dL (8.4-25.7); Calc. Creatinine Clearance 90 mL/min (70-130); Calcium 9.2 mg/dL (7.8-10.44); Carbon Dioxide 32 mmol/L (23-31); Chloride 104 mmol/L (98-107); Glucose 104 mg/dL (83-110); Potassium 4.3 mmol/L (3.5-5.1); Sodium 142 mmol/L (136-145)
[2024-09-23] MEDS: Gabapentin 100 MG CAP PO SCH (16:22)
[2024-09-24 05:09] LABS: #Basophils 0.06 10x3/uL (0.0-0.2); #Eosinophils 0.31 10x3/uL (0.0-0.7); #Monocytes 0.74 10x3/uL (0.11-0.59); #Neutrophils 4.58 10x3/uL (1.40-6.50); %Basophils 0.9 % (0.0-1.0); %Eosinophils 4.5 % (0.0-10.0); %Lymphocytes 17.6 % (21.0-51.0); %Monocytes 10.7 % (0.0-10.0); %Neutrophils 65.9 % (42.0-75.0); Hematocrit 39.6 % (42.0-52.0); Hemoglobin 11.7 g/dL (14.0-18.0); Mean Corpuscular Hemoglobin 27.5 pg (27.0-31.0); Mean Corpuscular Volume 93.2 fL (78.0-98.0); Platelet Count 237 10x3/uL (130-400); Red Blood Cell (RBC) Count 4.25 mill/uL (4.70-6.10); White Blood Cell (WBC) Count 6.94 10x3/uL (4.8-10.8)
[2024-09-24 05:28] LABS: Anion Gap 11 mmol/L (10-20); BUN (Urea Nitrogen) 13 mg/dL (8.4-25.7); Calc. Creatinine Clearance 101 mL/min (70-130); Calcium 9.4 mg/dL (7.8-10.44); Carbon Dioxide 29 mmol/L (23-31); Chloride 105 mmol/L (98-107); Glucose 117 mg/dL (83-110); Potassium 4.4 mmol/L (3.5-5.1); Sodium 141 mmol/L (136-145)
[2024-09-24 13:12] LABS: Actual Bicarbonate (HCO3v) 29.2 mEq/L (22-28); Base Excess 5.3 mEq/L (-2.0 to +3.0); Calcium, Ionized (venous) 1.12 mmol/L (1.16-1.32); Chloride (VBG) 104 mmol/L (98-106); Potassium (VBG) 5.19 mmol/L (3.70-5.30); Sodium 141 mmol/L (133-146)
[2024-09-24] MEDS ORDERED: Ipratropium Bromide 2.5 ml Neb NEB PRN (21:33)
[2024-09-25 01:47] LABS: #Basophils 0.11 10x3/uL (0.0-0.2); #Eosinophils 0.17 10x3/uL (0.0-0.7); #Monocytes 1.20 10x3/uL (0.11-0.59); #Neutrophils 12.80 10x3/uL (1.40-6.50); %Basophils 0.6 % (0.0-1.0); %Eosinophils 1.0 % (0.0-10.0); %Lymphocytes 15.3 % (21.0-51.0); %Monocytes 7.0 % (0.0-10.0); %Neutrophils 74.9 % (42.0-75.0); Hematocrit 45.6 % (42.0-52.0); Hemoglobin 13.3 g/dL (14.0-18.0); Mean Corpuscular Hemoglobin 28.0 pg (27.0-31.0); Mean Corpuscular Volume 96.0 fL (78.0-98.0); Platelet Count 359 10x3/uL (130-400); Red Blood Cell (RBC) Count 4.75 mill/uL (4.70-6.10); White Blood Cell (WBC) Count 17.11 10x3/uL (4.8-10.8)
[2024-09-25 01:51] LABS: Actual Bicarbonate (HCO3v) 26.7 mEq/L (22-28); Base Excess -3.2 mEq/L (-2.0 to +3.0); Calcium, Ionized (venous) 1.29 mmol/L (1.16-1.32); Chloride (VBG) 101 mmol/L (98-106); Hematocrit-VBG 43 % (42.0-52.0); Hemoglobin (Hb) 14.6 g/dL (12.6-17.4); Potassium (VBG) 5.13 mmol/L (3.70-5.30); Sodium 141 mmol/L (133-146)
[2024-09-25 02:04] LABS: Anion Gap 12 mmol/L (10-20); BUN (Urea Nitrogen) 16 mg/dL (8.4-25.7); Calc. Creatinine Clearance 111 mL/min (70-130); Calcium 10.0 mg/dL (7.8-10.44); Carbon Dioxide 32 mmol/L (23-31); Chloride 101 mmol/L (98-107); Glucose 249 mg/dL (83-110); Magnesium 1.9 mg/dL (1.6-2.6); Potassium 5.3 mmol/L (3.5-5.1); Sodium 140 mmol/L (136-145)
[2024-09-25] MEDS: Magnesium 2 GM/50 ML(in water) 2 GM in Premix 1 BAG IVPB SCH (02:54)
[2024-09-25 03:53] LABS: Actual Bicarbonate (HCO3v) 26.9 mEq/L (22-28); Base Excess 1.1 mEq/L (-2.0 to +3.0); Calcium, Ionized (venous) 1.22 mmol/L (1.16-1.32); Chloride (VBG) 104 mmol/L (98-106); Hematocrit-VBG 35 % (42.0-52.0); Hemoglobin (Hb) 11.9 g/dL (12.6-17.4); Potassium (VBG) 4.39 mmol/L (3.70-5.30); Sodium 140 mmol/L (133-146)
[2024-09-25 04:09] LABS: #Basophils 0.05 10x3/uL (0.0-0.2); #Eosinophils 0.07 10x3/uL (0.0-0.7); #Monocytes 0.82 10x3/uL (0.11-0.59); #Neutrophils 10.28 10x3/uL (1.40-6.50); %Basophils 0.4 % (0.0-1.0); %Eosinophils 0.6 % (0.0-10.0); %Lymphocytes 4.1 % (21.0-51.0); %Monocytes 6.9 % (0.0-10.0); %Neutrophils 87.2 % (42.0-75.0); Hematocrit 36.4 % (42.0-52.0); Hemoglobin 11.1 g/dL (14.0-18.0); Mean Corpuscular Hemoglobin 28.2 pg (27.0-31.0); Mean Corpuscular Volume 92.6 fL (78.0-98.0); Platelet Count 269 10x3/uL (130-400); Red Blood Cell (RBC) Count 3.93 mill/uL (4.70-6.10); White Blood Cell (WBC) Count 11.80 10x3/uL (4.8-10.8)
[2024-09-25 04:20] LABS: Anion Gap 12 mmol/L (10-20); BUN (Urea Nitrogen) 17 mg/dL (8.4-25.7); Calc. Creatinine Clearance 107 mL/min (70-130); Calcium 9.2 mg/dL (7.8-10.44); Carbon Dioxide 28 mmol/L (23-31); Chloride 104 mmol/L (98-107); Glucose 207 mg/dL (83-110); Potassium 4.2 mmol/L (3.5-5.1); Sodium 140 mmol/L (136-145)
[2024-09-25 06:19] LABS: HIV (1/2) Antibody/Antigen NONREACTIVE (NonReactive); HIV 1/2 INDEX 0.16 S/CO (<1.00); Hep C Index 0.19 S/CO (0-0.79)
[2024-09-25 06:55] LABS: Hep B Surf Ag NONREACTIVE S/CO (NonReactive)
[2024-09-25 06:58] LABS: Hep C IgG Ab NONREACTIVE S/CO (NonReactive)
[2024-09-26 05:11] LABS: #Basophils 0.04 10x3/uL (0.0-0.2); #Eosinophils 0.17 10x3/uL (0.0-0.7); #Monocytes 0.53 10x3/uL (0.11-0.59); #Neutrophils 5.84 10x3/uL (1.40-6.50); %Basophils 0.5 % (0.0-1.0); %Eosinophils 2.3 % (0.0-10.0); %Lymphocytes 11.0 % (21.0-51.0); %Monocytes 7.1 % (0.0-10.0); %Neutrophils 78.7 % (42.0-75.0); Hematocrit 32.1 % (42.0-52.0); Hemoglobin 9.9 g/dL (14.0-18.0); Mean Corpuscular Hemoglobin 28.4 pg (27.0-31.0); Mean Corpuscular Volume 92.0 fL (78.0-98.0); Platelet Count 232 10x3/uL (130-400); Red Blood Cell (RBC) Count 3.49 mill/uL (4.70-6.10); White Blood Cell (WBC) Count 7.43 10x3/uL (4.8-10.8)
[2024-09-26 05:24] LABS: Anion Gap 12 mmol/L (10-20); BUN (Urea Nitrogen) 23 mg/dL (8.4-25.7); Calc. Creatinine Clearance 66 mL/min (70-130); Calcium 9.4 mg/dL (7.8-10.44); Carbon Dioxide 30 mmol/L (23-31); Chloride 104 mmol/L (98-107); Glucose 97 mg/dL (83-110); Potassium 3.8 mmol/L (3.5-5.1); Sodium 142 mmol/L (136-145)
[2024-09-26] MEDS: Digoxin 0.125 MG TAB PO SCH (09:57)
[2024-09-26] MEDS: Carvedilol 3.125 MG TAB PO SCH (09:57)
[2024-09-27 05:27] LABS: #Basophils 0.03 10x3/uL (0.0-0.2); #Eosinophils 0.17 10x3/uL (0.0-0.7); #Monocytes 0.45 10x3/uL (0.11-0.59); #Neutrophils 4.69 10x3/uL (1.40-6.50); %Basophils 0.5 % (0.0-1.0); %Eosinophils 2.8 % (0.0-10.0); %Lymphocytes 10.7 % (21.0-51.0); %Monocytes 7.5 % (0.0-10.0); %Neutrophils 78.2 % (42.0-75.0); Hematocrit 30.6 % (42.0-52.0); Hemoglobin 9.4 g/dL (14.0-18.0); Mean Corpuscular Hemoglobin 28.1 pg (27.0-31.0); Mean Corpuscular Volume 91.6 fL (78.0-98.0); Platelet Count 227 10x3/uL (130-400); Red Blood Cell (RBC) Count 3.34 mill/uL (4.70-6.10); White Blood Cell (WBC) Count 6.00 10x3/uL (4.8-10.8)
[2024-09-27 05:49] LABS: Anion Gap 12 mmol/L (10-20); BUN (Urea Nitrogen) 22 mg/dL (8.4-25.7); Calc. Creatinine Clearance 74 mL/min (70-130); Calcium 9.1 mg/dL (7.8-10.44); Carbon Dioxide 29 mmol/L (23-31); Chloride 103 mmol/L (98-107); Glucose 134 mg/dL (83-110); Potassium 3.5 mmol/L (3.5-5.1); Sodium 140 mmol/L (136-145)
[2024-09-27] MEDS: Potassium Chloride 20 MEQ in Premix 1 BAG IVPB SCH (10:23)
[2024-09-27] MEDS: Potassium Bicarbonate/Cit Ac 20 MEQ TAB PER TUBE SCH (14:15)
[2024-09-27 18:40] LABS: Potassium 4.3 mmol/L (3.5-5.1)
[2024-09-28 05:12] LABS: #Basophils 0.05 10x3/uL (0.0-0.2); #Eosinophils 0.30 10x3/uL (0.0-0.7); #Monocytes 0.74 10x3/uL (0.11-0.59); #Neutrophils 6.90 10x3/uL (1.40-6.50); %Basophils 0.6 % (0.0-1.0); %Eosinophils 3.4 % (0.0-10.0); %Lymphocytes 8.0 % (21.0-51.0); %Monocytes 8.5 % (0.0-10.0); %Neutrophils 78.8 % (42.0-75.0); Hematocrit 35.9 % (42.0-52.0); Hemoglobin 10.7 g/dL (14.0-18.0); Mean Corpuscular Hemoglobin 28.5 pg (27.0-31.0); Mean Corpuscular Volume 95.7 fL (78.0-98.0); Platelet Count 288 10x3/uL (130-400); Red Blood Cell (RBC) Count 3.75 mill/uL (4.70-6.10); White Blood Cell (WBC) Count 8.75 10x3/uL (4.8-10.8)
[2024-09-28 05:25] LABS: Anion Gap 11 mmol/L (10-20); BUN (Urea Nitrogen) 21 mg/dL (8.4-25.7); Calc. Creatinine Clearance 82 mL/min (70-130); Calcium 9.6 mg/dL (7.8-10.44); Carbon Dioxide 32 mmol/L (23-31); Chloride 104 mmol/L (98-107); Glucose 146 mg/dL (83-110); Potassium 4.2 mmol/L (3.5-5.1); Sodium 143 mmol/L (136-145)
[2024-09-28 10:28] LABS: Actual Bicarbonate (HCO3a) 33.2 mEq/L (22-28); Base Excess (BEa) 1.9 mEq/L (-2.0 to +3.0); Calcium, Ionized (arterial) 1.34 mmol/L (1.12-1.30); Hematocrit-ABG 38 % (42.0-52.0); Hemoglobin (Hb) 12.8 g/dL (14.0-18.0); O2 Tension (PaO2), arterial 67.8 mmHg (> 70.0); Potassium - ABG Lab 4.42 mmol/L (3.70-5.30)
[2024-09-28 11:30] LABS: CO2 Tension 93.2 mmHg (35.0-45.0); pH, Arterial 7.169 (7.35-7.45)
[2024-09-28 11:31] LABS: Puncture Site Right Brachial art
[2024-09-28 14:06] LABS: Actual Bicarbonate (HCO3a) 28.1 mEq/L (22-28); Base Excess (BEa) 3.7 mEq/L (-2.0 to +3.0); CO2 Tension 41.6 mmHg (35.0-45.0); Calcium, Ionized (arterial) 1.23 mmol/L (1.12-1.30); Hematocrit-ABG 33 % (42.0-52.0); Hemoglobin (Hb) 11.1 g/dL (14.0-18.0); O2 Tension (PaO2), arterial 79.4 mmHg (> 70.0); Potassium - ABG Lab 4.32 mmol/L (3.70-5.30); pH, Arterial 7.447 (7.35-7.45)
[2024-09-28 14:12] LABS: ALV-art Gradient 153.800 mmHg (0-20); Puncture Site Right Brachial art
[2024-09-28] MEDS: Albumin 25% 25 GM (100 mL) BOT IVPB SCH (14:30)
[2024-09-29 04:24] LABS: #Basophils 0.03 10x3/uL (0.0-0.2); #Eosinophils 0.20 10x3/uL (0.0-0.7); #Monocytes 0.65 10x3/uL (0.11-0.59); #Neutrophils 5.81 10x3/uL (1.40-6.50); %Basophils 0.4 % (0.0-1.0); %Eosinophils 2.7 % (0.0-10.0); %Lymphocytes 8.4 % (21.0-51.0); %Monocytes 8.9 % (0.0-10.0); %Neutrophils 79.2 % (42.0-75.0); Hematocrit 29.8 % (42.0-52.0); Hemoglobin 8.9 g/dL (14.0-18.0); Mean Corpuscular Hemoglobin 28.5 pg (27.0-31.0); Mean Corpuscular Volume 95.5 fL (78.0-98.0); Platelet Count 227 10x3/uL (130-400); Red Blood Cell (RBC) Count 3.12 mill/uL (4.70-6.10); White Blood Cell (WBC) Count 7.34 10x3/uL (4.8-10.8)
[2024-09-29 04:55] LABS: Anion Gap 13 mmol/L (10-20); BUN (Urea Nitrogen) 29 mg/dL (8.4-25.7); Calc. Creatinine Clearance 71 mL/min (70-130); Calcium 9.0 mg/dL (7.8-10.44); Carbon Dioxide 30 mmol/L (23-31); Chloride 107 mmol/L (98-107); Glucose 143 mg/dL (83-110); Potassium 3.8 mmol/L (3.5-5.1); Sodium 146 mmol/L (136-145)
[2024-09-29] MEDS: Furosemide 40 MG (4 mL) VIAL SLOW IVP SCH (19:05)
[2024-09-30 04:19] LABS: #Basophils 0.04 10x3/uL (0.0-0.2); #Eosinophils 0.27 10x3/uL (0.0-0.7); #Monocytes 0.52 10x3/uL (0.11-0.59); #Neutrophils 4.65 10x3/uL (1.40-6.50); %Basophils 0.6 % (0.0-1.0); %Eosinophils 4.4 % (0.0-10.0); %Lymphocytes 11.0 % (21.0-51.0); %Monocytes 8.4 % (0.0-10.0); %Neutrophils 75.0 % (42.0-75.0); Hematocrit 29.3 % (42.0-52.0); Hemoglobin 8.7 g/dL (14.0-18.0); Mean Corpuscular Hemoglobin 28.1 pg (27.0-31.0); Mean Corpuscular Volume 94.5 fL (78.0-98.0); Platelet Count 223 10x3/uL (130-400); Red Blood Cell (RBC) Count 3.10 mill/uL (4.70-6.10); White Blood Cell (WBC) Count 6.20 10x3/uL (4.8-10.8)
[2024-09-30 05:32] LABS: Anion Gap 10 mmol/L (10-20); BUN (Urea Nitrogen) 29 mg/dL (8.4-25.7); Calc. Creatinine Clearance 82 mL/min (70-130); Calcium 8.8 mg/dL (7.8-10.44); Carbon Dioxide 31 mmol/L (23-31); Chloride 108 mmol/L (98-107); Glucose 155 mg/dL (83-110); Potassium 3.4 mmol/L (3.5-5.1); Sodium 146 mmol/L (136-145)
[2024-09-30] MEDS: Furosemide 40 MG (4 mL) VIAL SLOW IVP SCH (08:35)
[2024-09-30 12:55] LABS: Potassium 3.8 mmol/L (3.5-5.1)
[2024-10-01 04:08] LABS: #Basophils 0.04 10x3/uL (0.0-0.2); #Eosinophils 0.30 10x3/uL (0.0-0.7); #Monocytes 0.61 10x3/uL (0.11-0.59); #Neutrophils 4.48 10x3/uL (1.40-6.50); %Basophils 0.7 % (0.0-1.0); %Eosinophils 4.9 % (0.0-10.0); %Lymphocytes 10.2 % (21.0-51.0); %Monocytes 10.0 % (0.0-10.0); %Neutrophils 73.7 % (42.0-75.0); Hematocrit 30.2 % (42.0-52.0); Hemoglobin 9.0 g/dL (14.0-18.0); Mean Corpuscular Hemoglobin 28.4 pg (27.0-31.0); Mean Corpuscular Volume 95.3 fL (78.0-98.0); Platelet Count 248 10x3/uL (130-400); Red Blood Cell (RBC) Count 3.17 mill/uL (4.70-6.10); White Blood Cell (WBC) Count 6.08 10x3/uL (4.8-10.8)
[2024-10-01 04:26] LABS: Anion Gap 12 mmol/L (10-20); BUN (Urea Nitrogen) 28 mg/dL (8.4-25.7); Calc. Creatinine Clearance 86 mL/min (70-130); Calcium 9.2 mg/dL (7.8-10.44); Carbon Dioxide 33 mmol/L (23-31); Chloride 108 mmol/L (98-107); Glucose 105 mg/dL (83-110); Potassium 3.7 mmol/L (3.5-5.1); Sodium 149 mmol/L (136-145)
[2024-10-02 16:31] LABS: #Basophils 0.06 10x3/uL (0.0-0.2); #Eosinophils 0.19 10x3/uL (0.0-0.7); #Monocytes 0.66 10x3/uL (0.11-0.59); #Neutrophils 6.92 10x3/uL (1.40-6.50); %Basophils 0.7 % (0.0-1.0); %Eosinophils 2.3 % (0.0-10.0); %Lymphocytes 6.4 % (21.0-51.0); %Monocytes 7.9 % (0.0-10.0); %Neutrophils 82.3 % (42.0-75.0); Hematocrit 32.8 % (42.0-52.0); Hemoglobin 10.0 g/dL (14.0-18.0); Mean Corpuscular Hemoglobin 28.4 pg (27.0-31.0); Mean Corpuscular Volume 93.2 fL (78.0-98.0); Platelet Count 276 10x3/uL (130-400); Red Blood Cell (RBC) Count 3.52 mill/uL (4.70-6.10); White Blood Cell (WBC) Count 8.40 10x3/uL (4.8-10.8)
[2024-10-02 16:56] LABS: Anion Gap 14 mmol/L (10-20); BUN (Urea Nitrogen) 29 mg/dL (8.4-25.7); Calc. Creatinine Clearance 103 mL/min (70-130); Calcium 9.5 mg/dL (7.8-10.44); Carbon Dioxide 32 mmol/L (23-31); Chloride 101 mmol/L (98-107); Glucose 160 mg/dL (83-110); Potassium 3.7 mmol/L (3.5-5.1); Sodium 143 mmol/L (136-145)
[2024-10-02] MEDS ORDERED: Acetaminophen 325 MG TAB PER TUBE PRN (21:09)
[2024-10-02] MEDS: Apixaban 5 MG TAB PER TUBE SCH (21:31)
[2024-10-03] MEDS ORDERED: Apixaban 5 MG TAB PER TUBE SCH (09:00)
[2024-10-03] MEDS: Aspirin Chewable 81 MG TAB PER TUBE SCH (09:12)
[2024-10-03] MEDS: Gabapentin 100 MG CAP PER TUBE SCH (21:25)
[2024-10-03] MEDS: Senokot S 8.6-50 MG TAB PER TUBE SCH (21:25)
[2024-10-04 07:15] LABS: #Basophils 0.03 10x3/uL (0.0-0.2); #Eosinophils 0.28 10x3/uL (0.0-0.7); #Monocytes 0.51 10x3/uL (0.11-0.59); #Neutrophils 4.99 10x3/uL (1.40-6.50); %Basophils 0.5 % (0.0-1.0); %Eosinophils 4.3 % (0.0-10.0); %Lymphocytes 10.0 % (21.0-51.0); %Monocytes 7.8 % (0.0-10.0); %Neutrophils 76.6 % (42.0-75.0); Hematocrit 28.7 % (42.0-52.0); Hemoglobin 8.6 g/dL (14.0-18.0); Mean Corpuscular Hemoglobin 28.4 pg (27.0-31.0); Mean Corpuscular Volume 94.7 fL (78.0-98.0); Platelet Count 269 10x3/uL (130-400); Red Blood Cell (RBC) Count 3.03 mill/uL (4.70-6.10); White Blood Cell (WBC) Count 6.51 10x3/uL (4.8-10.8)
[2024-10-04 08:06] LABS: Anion Gap 12 mmol/L (10-20); Calc. Creatinine Clearance 90 mL/min (70-130); Calcium 9.2 mg/dL (7.8-10.44); Carbon Dioxide 37 mmol/L (23-31); Glucose 138 mg/dL (83-110)
[2024-10-04 08:07] LABS: BUN (Urea Nitrogen) 29 mg/dL (8.4-25.7)
[2024-10-04 08:08] LABS: Chloride 97 mmol/L (98-107); Potassium 3.1 mmol/L (3.5-5.1); Sodium 143 mmol/L (136-145)
[2024-10-04] MEDS: Potassium Bicarbonate/Cit Ac 20 MEQ TAB PER TUBE SCH (09:13)
[2024-10-04 13:14] LABS: Potassium 3.7 mmol/L (3.5-5.1)
[2024-10-04 13:41] VITALS: BMI 34.8
[2024-10-05 02:51] VITALS: BP 114/71
[2024-10-05 06:44] VITALS: BMI 35.2
[2024-10-05 09:09] VITALS: TEMP 98.2
== END 2024-10-05 13:56 | DRG 689 ==
LOC: ERS 14:04 → 2NO 20:15 → OBSVTOIN 09-15 11:31 → T4-A 09-15 17:31 → CCU 09-21 10:32 → SURG A 09-23 12:52 → CCU 09-25 01:37
PROVIDERS: ADMIT Internal Medicine; ATTEND Emergency Medicine
PROC: 3E03329 Introduction of Other Anti-infective into Peripheral Vein, Percutaneous Approach (ICD-10-PCS; principal; 2024-09-15)
PROC: 0DH63UZ Insertion of Feeding Device into Stomach, Percutaneous Approach (ICD-10-PCS; principal; 2024-09-15)
PROC: 3E0G76Z Introduction of Nutritional Substance into Upper GI, Via Natural or Artificial Opening (ICD-10-PCS; principal; 2024-09-15)
DX: N39.0 Urinary tract infection, site not specified (principal); G93.41 Metabolic encephalopathy; I21.A1 Myocardial infarction type 2; J96.21 Acute and chronic respiratory failure with hypoxia; J96.11 Chronic respiratory failure with hypoxia; I48.20 Chronic atrial fibrillation, unspecified; E87.0 Hyperosmolality and hypernatremia; E11.9 Type 2 diabetes mellitus without complications; Z79.01 Long term (current) use of anticoagulants; R53.81 Other malaise; E66.01 Morbid (severe) obesity due to excess calories; R13.12 Dysphagia, oropharyngeal phase; I25.2 Old myocardial infarction; Z79.82 Long term (current) use of aspirin; Z79.899 Other long term (current) drug therapy; K59.00 Constipation, unspecified; I10 Essential (primary) hypertension; I48.0 Paroxysmal atrial fibrillation; B96.20 Unspecified Escherichia coli [E. coli] as the cause of diseases classified elsewhere; B02.9 Zoster without complications; L30.4 Erythema intertrigo; I35.0 Nonrheumatic aortic (valve) stenosis; I25.10 Atherosclerotic heart disease of native coronary artery without angina pectoris; G47.33 Obstructive sleep apnea (adult) (pediatric)
CPT/HCPCS: 36415; 36416; 36600; 71045; 76770; 80048; 80053; 80162; 81001; 82805; 83036; 83605; 83735; 83880; 84484; 85025; 85027; 85610; 85730; 86803; 87040; 87077; 87086; 87186; 87340; 87389; 93005; 93010; 93306; 94002; 94003; 94640; 94760; 97139; J0696; J1815; J1940; J2250; J2270; J2543; J3475; J3480; J7030; J7620; P9047